=== PATIENT | female | born 1985 | race Two or more races ===

== ENCOUNTER 2024-07-01 11:22 | Outpatient (RCR) | payer MEDICAID, SELFPAY ==
--- NOTE | 2024-06-25 13:35 | CTCFLWUP_ITS ---
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 S/p pembrolizumab plus chemoradiation with cisplatin as chemosensitization agent (12/10/2023 - ) S/p brachytherapy at [facility] (01/15/2024 - 01/17/2024) Started on adjuvant pembrolizumab every 6 weeks on 02/21/2024. Plan is to give her a total of 15 new tments. Type 2 diabetes for last 9 years without any secondary sequelae. REASON FOR TODAY?S VISIT patient has been on pembrolizumab in the adjuvant setting and here to discus s mri results here HISTORY OF PRESENT ILLNESS: Bernabe Hirsch is a 38-year-old SPA speaking female with follow ing oncology history. Ms. Hirsch has been having vaginal bleeding intermittently for the last 6 months. She was also cooper ving vaginal discharge. For the last 1 months she has been having low pelvic pain. 08/15/2023: Ms. Hirsch had a Pap smear 10/02/2023: Ms. Hirsch had biopsy of the cervix mass 11/14/2023: MRI of the pelvis with IV contrast? 11/19/2023: PET/CT scan 12/10/2023 - 01/14/2024) /p pembrolizumab plus cisplatin chemoradiation 01/15/2024?01/17/2024: Ms. Hirsch had brachytherapy at [facility]. 02/21/2024: Ms. Hirsch received first dose of adjuvant pembrolizumab 400 mg IV. The plan is to giv e her once every 6 weeks for a total of 15 times. PAST MEDICAL HISTORY: Cervical cancer - dx 10/02/23 Diabetes Hyperlipidemia PAST SURGICAL HISTORY: x 3 - 2014, 2017, 2020 Cervical cerclage - 2014, 2020 MEDICATIONS: 1. atorvastatin - 20 mg 1 tab Daily 2. ibuprofen - 800 mg 1 tab Every 8 Hours 3. levoFLOXacin - 500 mg 1 tab one tab po q daily for 7 days 4. metFORMIN - 1,000 mg 1 tab Twice a Day 5. Mounjaro - 5 mg/0.5 mL 5 mg Weekly?Palabra Meds? Medications Last Reconciled by Joy Morton RN on 03/06/2024 ALLERGIES: No Known Drug Allergies REVIEW OF SYSTEMS:?Clone ROS? Neurological: No headache, seizures or blurring of vision. Gastrointestinal: No nausea, vomiting, diarrhea or constipation. Cardiovascular: No palpitations or angina pains. Respiratory: No cough, chest pain or shortness of breath. PHYSICAL EXAMINATION:?ClonePE? VITAL SIGNS: Temperature?99.7, B/P?135/84, Oxygen?Saturation?100% Weight?188?lbs (Change?since? 4:?3?lbs) PAIN: 0 - No pain EYE: Conjunctivae is pink. MOUTH: Oral cavity is dry. CHEST: Clear to auscultation. No wheezes or rales audible. CARDIAC: Rhythm regular, no murmurs or gallops present. ABDOMEN: Soft. No hepatomegaly. No splenomegaly. EXTREMITIES: No pedal edema or cyanosis. ASSESSMENT and plan: #1 stage III C2 (para-aortic lymph node metastasis on PET/CT scan) adenosquamous carcinoma of the cer vix. S/p chemoradiation plus pembrolizumab followed by brachytherapy at [facility] as documented above Continue adjuvant pembrolizumab 400 mg IV every 6 weeks for a total of 15 times as per keynote A [address] scan is concerning for left iliac lymph nodes MRI pelvis negative for any LN s Continue Pembro Patient asymptomatic #2 type 2 diabetes for last 9 years without any secondary sequelae. Follow-up with PCP Electronically Signed by: Joey Ramirez MD T: 1:33 PM CC: PCP: Aure Barrett V Referring: Aure Barrett V This document was completed utilizing speech recognition software. Grammatical errors, random word in sertions, pronoun errors, and incomplete sentences are an occasional consequence of this system due t o software limitations, ambient noise, and hardware issues. Any formal questions or concerns about e content, text or information contained within the body of this dictation should be directly address ed to the provider for clarification.
[2024-06-30 10:35] LABS: Basophils % (Auto) 0 % (0-2.5); Eosinophils # (Auto) 0.1 Thou/mm3 (0.0-0.5); Eosinophils % (Auto) 1 % (0-10); Hematocrit 34.5 % (36.0-46.0); Hemoglobin 11.8 g/dL (12.0-16.0); Immature Granulocytes % (Auto) 0 % (0-0); Immature Granulocytes Auto 0.01 Thou/mm3 (0.00-0.00); Lymphocytes # (Auto) 0.8 Thou/mm3 (1.0-4.8); Lymphocytes % (Auto) 13 % (10-50); Mean Corpuscular HGB Conc 34.2 g/dl (31.0-37.0); Mean Corpuscular Hemoglobin 28.1 pg (25.0-35.0); Mean Corpuscular Volume 82 fL (80-100); Monocytes # (Auto) 0.4 Thou/mm3 (0.0-0.8); Monocytes % (Auto) 7 % (0-12); Neutrophils # (Auto) 4.8 Thou/mm3 (1.8-7.7); Neutrophils % (Auto) 78 % (37-80); Nucleated Red Blood Cell % 0 /100 WBC (0); Platelet Count 336 Thou/mm3 (140-440); RDW Standard Deviation 39.3 fL (36.4-46.3); White Blood Count 6.2 Thou/mm3 (3.6-11.0)
[2024-06-30 10:56] LABS: Alanine Aminotransferase 13 U/L (10-49); Albumin, Serum 4.2 gm/dL (3.5-5.0); Albumin/Globulin Ratio 1.6 (1.2-2.2); Alkaline Phosphatase 85 U/L (46-116); Anion Gap 10 (7-16); Aspartate Amino Transferase 13 U/L (0-34); BUN/Creatinine Ratio 20 Ratio (12-20); Bilirubin,Total 0.5 mg/dL (0.3-1.2); Blood Urea Nitrogen 12 mg/dL (9-23); Calcium 9.1 mg/dL (8.3-10.6); Calcium (Corrected) 9.1 mg/dL (8.5-10.1); Carbon Dioxide 23.5 mMol/L (20.0-31.0); Chloride 104 mMol/L (98-107); Creatinine (Component) 0.6 mg/dL (0.6-1.3); Free T4 (Free Thyroxine) 1.16 ng/dL (0.89-1.76); Globulin 2.7 gm/dL (2.3-3.5); Glucose 151 mg/dL (74-106); Osmolality,Calculated 276 (275-295); Potassium 3.5 mMol/L (3.4-5.1); Sodium 137 mMol/L (136-145); Thyroid Stimulating Hormone 0.54 uIU/mL (0.55-4.78); Total Protein 6.9 gm/dL (5.7-8.2); eGFR > 60 See Note
== END 2024-07-05 23:59 | disposition home or self-care (01) ==
LOC: SCTC 11:22
PROVIDERS: PCP Nurse Practitioner; Referring Provider Nurse Practitioner; Visit Provider Internal Medicine Hematology & Oncology
DX: Z51.11 Encounter for antineoplastic chemotherapy (principal); C53.0 Malignant neoplasm of endocervix; C77.2 Secondary and unspecified malignant neoplasm of intra-abdominal lymph nodes; E11.9 Type 2 diabetes mellitus without complications; Z79.84 Long term (current) use of oral hypoglycemic drugs; Z92.3 Personal history of irradiation
CPT/HCPCS: 36591; 80053; 84439; 84443; 85025; 96413; 99213; A4216; J1642; J9271; G0463

== ENCOUNTER 2024-08-28 14:55 | Outpatient (RCR) | payer MEDICAID, SELFPAY ==
[2024-08-11 16:16] LABS: Basophils % (Auto) 0 % (0-2.5); Eosinophils % (Auto) 1 % (0-10); Hematocrit 33.2 % (36.0-46.0); Hemoglobin 11.1 g/dL (12.0-16.0); Immature Granulocytes % (Auto) 0 % (0-0); Immature Granulocytes Auto 0.01 Thou/mm3 (0.00-0.00); Lymphocytes % (Auto) 20 % (10-50); Mean Corpuscular HGB Conc 33.4 g/dl (31.0-37.0); Mean Corpuscular Hemoglobin 27.1 pg (25.0-35.0); Mean Corpuscular Volume 81 fL (80-100); Monocytes # (Auto) 0.4 Thou/mm3 (0.0-0.8); Monocytes % (Auto) 8 % (0-12); Neutrophils # (Auto) 3.6 Thou/mm3 (1.8-7.7); Neutrophils % (Auto) 71 % (37-80); Nucleated Red Blood Cell % 0 /100 WBC (0); Platelet Count 356 Thou/mm3 (140-440); RDW Standard Deviation 35.7 fL (36.4-46.3); Red Blood Count 4.09 Miln/mm3 (4.00-5.20); White Blood Count 5.1 Thou/mm3 (3.6-11.0)
[2024-08-11 16:38] LABS: Alanine Aminotransferase 8 U/L (10-49); Albumin, Serum 4.3 gm/dL (3.5-5.0); Albumin/Globulin Ratio 1.5 (1.2-2.2); Alkaline Phosphatase 101 U/L (46-116); Anion Gap 10 (7-16); Aspartate Amino Transferase 10 U/L (0-34); BUN/Creatinine Ratio 19 Ratio (12-20); Bilirubin,Total 0.3 mg/dL (0.3-1.2); Blood Urea Nitrogen 13 mg/dL (9-23); Calcium 9.2 mg/dL (8.3-10.6); Calcium (Corrected) 9.2 mg/dL (8.5-10.1); Carbon Dioxide 24.2 mMol/L (20.0-31.0); Chloride 105 mMol/L (98-107); Creatinine (Component) 0.7 mg/dL (0.6-1.3); Free T4 (Free Thyroxine) 1.09 ng/dL (0.89-1.76); Globulin 2.9 gm/dL (2.3-3.5); Glucose 140 mg/dL (74-106); Osmolality,Calculated 279 (275-295); Potassium 3.8 mMol/L (3.4-5.1); Sodium 139 mMol/L (136-145); Thyroid Stimulating Hormone 1.11 uIU/mL (0.55-4.78); Total Protein 7.2 gm/dL (5.7-8.2); eGFR > 60 See Note
--- NOTE | 2024-09-07 19:55 | CTCFLWUP_ITS ---
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 S/p pembrolizumab plus chemoradiation with cisplatin as chemosensitization agent (12/10/2023 - 01/14/2024) S/p brachytherapy at [facility] (01/15/2024 - 01/17/2024) Started on adjuvant pembrolizumab every 6 weeks on 02/21/2024. Plan is to give her a total of 15 treatments. 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 S/p pembrolizumab plus chemoradiation with cisplatin as chemosensitization agent (12/10/2023 - 01/14/2024) S/p brachytherapy at [facility] (01/15/2024 - 01/17/2024) Started on adjuvant pembrolizumab every 6 weeks on 02/21/2024. Plan is to give her a total of 15 treatments. Type 2 diabetes for last 9 years without any secondary sequelae. DATE OF DIAGNOSIS: 08/15/2023 STAGE/TNM: Stage III TREATMENT HISTORY: Care?Plan Start?Date Cycle Day Intent PembroCis?with?chemo-xrt?for?cervic?ca 12/10/2023 1 42 Palliative 2.?Pembro?adjuvant?keynote?A18 02/21/2024 1 42 Curative?(primary) HISTORY OF PRESENT ILLNESS: Arlene Hirsch is a 38-year-old SPA speaking female with following oncology history. Ms. Hirsch has been having vaginal bleeding intermittently for the last 6 months. She was also having vaginal discharge. For the last 1 months she has been having low pelvic pain. 08/15/2023: Ms. Hirsch had a Pap smear 10/02/2023: Ms. Hirsch had biopsy of the cervix mass 11/14/2023: MRI of the pelvis with IV contrast? 11/19/2023: PET/CT scan 12/10/2023 - 01/14/2024) /p pembrolizumab plus cisplatin chemoradiation 01/15/2024?01/17/2024: Ms. Hirsch had brachytherapy at [facility]. 02/21/2024: Ms. Hirsch received first dose of adjuvant pembrolizumab 400 mg IV. The plan is to give her once every 6 weeks for a total of 15 times. 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 Tobacco?Use:?Denies ETOH?Use:?Denies Drug?Note:?Denies Social?History?Note:?Lives?with? FORGE HELPER HISTORY: Menarche?-?Age:?16 Date?LMP:?10/03/2023 Date?of?last?pap?smear:?09/2023 Hormone?Use:?NEXPLANON?X?1?1/2?YEAR :?6 Live?Births:?3 Age?1st?:?29 Painful?intercourse:?N-No Gynecological?Note:?3?miscarriages MEDICATIONS: 1. atorvastatin - 20 mg 1 tab Daily 2. ibuprofen - 800 mg 1 tab Every 8 Hours 3. Jardiance - 10 mg 1 tab Daily 4. metFORMIN - 1,000 mg 1 tab Twice a Day 5. Mounjaro - 5 mg/0.5 mL 5 mg Weekly Medications Last Reconciled by Arlene Casarez MA on 08/28/2024 ALLERGIES: No Known Drug Allergies REVIEW OF SYSTEMS: A complete 14-point review of systems was performed and is negative except as noted in interval history. PHYSICAL EXAMINATION: VITAL SIGNS: Temperature?100, B/P?132/87, Oxygen?Saturation?100% Weight?175?lbs (Change?since?08/12/24:?3.4?lbs) PAIN: 0 - No pain ECOG Performance Status: 0 - Asymptomatic and fully active GENERAL APPEARANCE: Appears well, in no apparent distress, appropriately interactive. HEENT: Normocephalic, no temporal wasting, normal conjunctiva, no scleral icterus, normal hearing, lips without lesions, neck normal range of motion. CARDIOVASCULAR: Not assessed. PULMONARY: Normal respiratory effort, no respiratory distress or use of accessory muscles, speaking in full sentences, no tachypnea. EXTREMITIES: No pedal edema or cyanosis. SKIN: Normal skin appearance. NEUROLOGIC: Alert and oriented x4. PSHYCHIATRIC: Appropriate affect, mood normal, behavior normal, intact thought and speech. LABORATORY DATA: I have personally reviewed and interpreted each of the patient?s relevant lab tests, abnormal findings are below: Date 08/11/24 ??GLUCOSE,RANDOM?(mg/dL) 140?H ??BLOOD?UREA?NITROGEN?(mg/dL) 13 ??CREATININE?(mg/dL) 0.70 ??SODIUM?(mmol/L) 139 ??POTASSIUM?(mmol/L) 3.8 ??CHLORIDE?(mmol/L) 105 ??CrCl?(CandG)?(ml/min) 111.48 ??AST/SGOT?(Unit/L) 10 ??ALT/SGPT?(Unit/L) 8?L ??ALKALINE?PHOSPHATASE?(Unit/L) 101 ??BILIRUBIN,?TOTAL?(mg/dL) 0.3 ??PROTEIN?TOTAL?(gm/dl) 7.2 ??ALBUMIN,?SERUM?(gm/dl) 4.3 ??GLOBULIN?(gm/dl) 2.9 ??ALBUMIN/GLOBULIN?RATIO 1.5 ??CALCIUM,?SERUM?(mg/dL) 9.2 ??CALCIUM?SERUM?(CORRECTED)?(mg/dL) 9.2 ASSESSMENT/PLAN: #1 stage III C2 (para-aortic lymph node metastasis on PET/CT scan) adenosquamous carcinoma of the cervix. S/p chemoradiation plus pembrolizumab followed by brachytherapy at [facility] as documented above Continue adjuvant pembrolizumab 400 mg IV every 6 weeks for a total of 15 times as per keynote A [address] scan is concerning for left iliac lymph nodes MRI pelvis negative for any LN s Continue Pembro Patient asymptomatic #2 type 2 diabetes for last 9 years without any secondary sequelae. Follow-up with PCP MRI lumbar spine with and without contrast CBC CMP Iron studies Tsh t4 RETURN TO CLINIC: 4 weeks BILLING AND COMPLIANCE: I reviewed external records from providers outside my specialty as summarized above. I spent a total of 50 minutes on this patient?s care on the day of their visit excluding time spent related to any billed procedures. This time includes time spent with the patient as well as time spent documenting in the medical record, reviewing patients records and tests, obtaining history, placing orders, communicating with other healthcare professionals, counseling the patient, family or caregiver, and/or care coordination for the diagnoses above. Electronically Signed by: Joey Ramirez MD T: 7:53 PM CC: PCP: Aure Barrett V Referring: Aure Barrett V This document was completed utilizing speech recognition software. Grammatical errors, random word insertions, pronoun errors, and incomplete sentences are an occasional consequence of this system due to software limitations, ambient noise, and hardware issues. Any formal questions or concerns about the content, text or information contained within the body of this dictation should be directly addressed to the provider for clarification.
== END 2024-09-05 23:59 | disposition home or self-care (01) ==
LOC: SCTC 14:55
PROVIDERS: PCP Nurse Practitioner; Referring Provider Nurse Practitioner; Visit Provider Internal Medicine Hematology & Oncology
DX: Z51.11 Encounter for antineoplastic chemotherapy (principal); C53.0 Malignant neoplasm of endocervix; C77.2 Secondary and unspecified malignant neoplasm of intra-abdominal lymph nodes; Z92.3 Personal history of irradiation; E11.9 Type 2 diabetes mellitus without complications; Z79.84 Long term (current) use of oral hypoglycemic drugs
CPT/HCPCS: 36591; 80053; 84439; 84443; 85025; 96413; 99212; A4216; J1642; J7050; J9271; G0463

== ENCOUNTER → 2024-09-02 | Outpatient (CLI) | payer MEDICAID, SELFPAY ==
[2024-09-01 13:49] LABS: HCG Qualitative,Urine Negative
--- NOTE | 2024-09-02 09:30 | XR_ITS ---
Examination: CT chest with intravenous contrast CT abdomen with intravenous contrast CT pelvis with intravenous contrast 2-D coronal and sagittal reconstructions Time of exam: August 25, 2024 1043 hours INDICATIONS: Diagnosis cervical carcinoma one year ago, restaging, onset left lower abdominal pain radiating to the left leg beginning 2 months ago CTDI: vol (mGy) : 20.8 DLP: (mGycm): 856 Technique: Multiple axial images of the chest, abdomen and pelvis with intravenous contrast, 3.0 mm slice thickness. Images obtained post intravenous injection Isovue 370 60 cc. 2-D sagittal and coronal reconstructions. Low dose protocols were performed. One or more of the following dose reduction techniques were used; automated exposure control, adjustment of the mA and/or KV according to patient size, use of iterative reconstruction technique. Findings: No thoracic aortic aneurysmal dilatation Pulmonary artery opacification is reduced No paratracheal tracheobronchial or bronchopulmonary adenopathy. 4 mm pulmonary nodule right upper lobe image 145 3 mm pulmonary nodule left upper lobe image 145 4 mm pulmonary nodule posterior right lung image 173 3 mm pulmonary nodule posterior right lung image 176 3 mm pulmonary nodule right lower lobe image 209 4 mm pulmonary nodule right lower lobe image 212 2 mm 4 mm pulmonary nodules left lower lobe image 222 No pneumonia or pulmonary edema No visualized liver or splenic lesion No gallstones No pancreatic or adrenal mass No renal or ureteral calculi Prominent pericaval periaortic lymphadenopathy, left lateral periaortic lymph nodes measuring up to 22 mm in dimension Small right and left common iliac lymph nodes as well as external iliac lymph nodes, the largest 18 mm right external iliac region Diffuse thickening of the rectal wall, clinical correlation advised Anteverted uterus Urinary bladder wall thickening up to 4 mm Moderate osteopenia IMPRESSION: Numerous subcentimeter pulmonary nodules suspicious for pulmonary nodular metastatic disease, suggest continued 6 month follow-up CT chest without contrast Extensive abdominal and pelvic likely metastatic lymphadenopathy Thickening of the rectal wall, consider proctitis Cystitis pattern
[2024-09-02 11:29] LABS: Basophils % (Auto) 1 % (0-2.5); Eosinophils # (Auto) 0.1 Thou/mm3 (0.0-0.5); Eosinophils % (Auto) 1 % (0-10); Hematocrit 37.9 % (36.0-46.0); Hemoglobin 12.4 g/dL (12.0-16.0); Immature Granulocytes % (Auto) 0 % (0-0); Immature Granulocytes Auto 0.01 Thou/mm3 (0.00-0.00); Lymphocytes # (Auto) 0.9 Thou/mm3 (1.0-4.8); Lymphocytes % (Auto) 16 % (10-50); Mean Corpuscular HGB Conc 32.7 g/dl (31.0-37.0); Mean Corpuscular Volume 82 fL (80-100); Monocytes # (Auto) 0.5 Thou/mm3 (0.0-0.8); Monocytes % (Auto) 8 % (0-12); Neutrophils # (Auto) 4.3 Thou/mm3 (1.8-7.7); Neutrophils % (Auto) 74 % (37-80); Nucleated Red Blood Cell % 0 /100 WBC (0); Platelet Count 413 Thou/mm3 (140-440); RDW Standard Deviation 37.7 fL (36.4-46.3); White Blood Count 5.7 Thou/mm3 (3.6-11.0)
[2024-09-02 11:56] LABS: Alanine Aminotransferase 10 U/L (10-49); Albumin/Globulin Ratio 1.9 (1.2-2.2); Alkaline Phosphatase 117 U/L (46-116); Anion Gap 12 (7-16); Aspartate Amino Transferase < 10 U/L (0-34); BUN/Creatinine Ratio 20 Ratio (12-20); Bilirubin,Total 0.5 mg/dL (0.3-1.2); Blood Urea Nitrogen 12 mg/dL (9-23); Calcium 9.7 mg/dL (8.3-10.6); Calcium (Corrected) 9.7 mg/dL (8.5-10.1); Chloride 100 mMol/L (98-107); Creatinine (Component) 0.6 mg/dL (0.6-1.3); Globulin 2.7 gm/dL (2.3-3.5); Glucose 103 mg/dL (74-106); Osmolality,Calculated 275 (275-295); Potassium 3.8 mMol/L (3.4-5.1); Sodium 138 mMol/L (136-145); Total Protein 7.7 gm/dL (5.7-8.2); eGFR > 60 See Note
[2024-09-02 12:13] LABS: Carcinoembryonic Antigen 58.2 ng/mL (0.0-5.0)
== END | disposition home or self-care (01) ==
LOC: CCTX 10:03 → SCTO 10:11 → CCTX 09-26 05:55
PROVIDERS: Student in an Organized Health Care Education/Training Program; PCP Nurse Practitioner; Referring Provider Internal Medicine Hematology & Oncology; Visit Provider Obstetrics & Gynecology Gynecologic Oncology
DX: R91.8 Other nonspecific abnormal finding of lung field (principal); C53.9 Malignant neoplasm of cervix uteri, unspecified; C53.0 Malignant neoplasm of endocervix; Z32.00 Encounter for pregnancy test, result unknown
CPT/HCPCS: 36415; 71260; 74177; 80053; 81025; 82378; 85025; 86304; A4649; Q9967

== ENCOUNTER 2024-09-29 10:40 | Emergency (ER) | payer MEDICAID, SELFPAY ==
[2024-09-29 11:03] VITALS: BP 141/92; PULSE 119; RESP 16; TEMP 37.4; O2SAT 99; BMI 30.4
--- NOTE | 2024-09-29 11:14 | EKG_ITS ---
[facility] Test Date: 2024-09-29 Pat Name: BERNABE GONZALEZ Department: Room: - Gender: Female Mat Roller: : 1985 Requested By: Jack Machado (KIRAN) Order Number: [id number] Reading MD: Jack Machado (JEWELLERY DESIGNER) Measurements Intervals [place] Rate: 125 P: 67 CO: 108 QRS: 97 QRSD: 81 T: 39 QT: 321 QTc: 463 Interpretive Statements SINUS TACHYCARDIA WITH SHORT CO INTERVAL BORDERLINE RIGHT AXIS DEVIATION [QRS AXIS > 90] ABNORMAL RHYTHM ECG Compared to ECG 06/26/2023 06:36:16 Short CO interval now present /store/S0/[id number]/ecg/[id number].pdf
--- NOTE | 2024-09-29 11:14 | XR_ITS ---
Examination: PA lateral chest 2 views Technique: Upright PA lateral chest 2 views Exam date and time: Coughing tachycardia beginning 3 days ago. Findings: Normal heart size Right internal jugular Port-A-Cath tip satisfactory position No pneumonia or pulmonary edema Impression: No pneumonia or pulmonary edema
--- NOTE | 2024-09-29 11:14 | PD.EDRME ---
Rapid Medical Screening Exam RME Arrival date/time: 09/29/24 10:40 38-year-old female presents emergency department today stating during chemotherapy today she became tachycardic they referred her to the ER for further evaluation Chief Complaint: Chest Pain Time Seen by Provider: 09/29/24 10:47 Vital signs: Vital Signs Temperature 99.4 F 09/29/24 11:03 Pulse Rate 119 H 09/29/24 11:03 Respiratory Rate 16 09/29/24 11:03 Blood Pressure 141/92 H 09/29/24 11:03 Pulse Oximetry (%) 99 09/29/24 11:03 Oxygen Delivery Method Room Air 09/29/24 11:03
--- NOTE | 2024-09-29 11:55 | PD.EDCHEST ---
ED Chest Pain RME/HPI General Chief Complaint: Chest Pain Stated Complaint: TACHYCARDIA, CHEST PRESSURE, SOB Time Seen by Provider: 09/29/24 10:47 Arrival date/time: 09/29/24 10:40 RME / HPI RME / HPI narrative: 09/29/24 10:40 38-year-old female presents emergency department today stating during chemotherapy today she became tachycardic they referred her to the ER for further evaluation This section includes all my notes and documentations, including HPI, PE, and ED course.? Neville Richter MD HPI: 38 year old female with history of stage III adenosquamous carcinoma of the cervix, s/p chemotherapy, s/p brachytherapy at [facility], diabetes presents to the ED for evaluation of palpitations and chest discomfort today. Patient states she began a new chemotherapy treatment today and ~ 1 hour into her treatment she began to have palpitations and chest discomfort. Additionally reports a dry cough beginning 3 days ago. Denies fevers, chills, congestion. No other complaints reported. ROS: All negative except as documented in HPI. Physical Exam: General:? Alert and oriented.? No acute distress when remaining still.?? Eyes:? Conjunctivae and lids clear.? ENT:? No nasal congestion.? Neck:? Supple.? Heart: Sinus tachycardia noted. Lungs:? No respiratory distress.? Good air movement.? No rhonchi, wheezing, rales.?? Abdomen:? Soft and nontender.?? Legs:? No clubbing, cyanosis, edema.? Skin:? Warm and dry.?? Neuro:? Alert and oriented X 3.?? I reviewed all diagnostic test results. My interpretation of the EKG is?Sinus tachycardia (109 bpm) with nonspecific ST-T changes. Neville Richter MD My interpretation of the chest x-ray is no pneumonia or pulmonary edema Blood tests and urine tests?unremarkable, including negative troponin/D-dimer/BNP. At this point, diagnoses include?tachycardia. Treatment here included?oral metoprolol. Significant improvement noted. Recommended more outpatient cardiac workup. Based on my best medical judgment, made decision no further evaluation or treatment indicated at this time.? Patient understands and agrees to the discharge instructions customized and printed, see below. Discharge instructions from Dr. Neelam: 1. After extensive evaluation, there is no life-threatening condition.? Such as heart attack or pulmonary embolism (blood clots in your lungs) or pneumothorax (collapsed lung). 2. Your symptoms may be due to chemotherapy. 3. Take metoprolol 25 mg every morning and every evening. Hold if SBP < 115. SBP is higher number of BP. Hold if heart rate < 65 bpm. 4. See a private doctor on 09/30/2024 for recheck and further care. To make sure there is no serious underlying heart condition, ask to help you get more tests for your heart that cannot be done here in the ER.? Such as Holter Monitor (cardiac monitoring at home from a day to even a month), heart stress test (on treadmill or with medication), echocardiogram (imaging of your heart structures), heart catherization (checking for blockages in your heart arteries), and a referral to see a Nurses' Association Counselor. 5. Seek immediate medical care with worsening or with any concerns.?? Neville Richter MD Related Data Home Medications ?Medication ?Instructions ?Recorded ?Confirmed metformin 1,000 mg tablet 1,000 mg PO BID 01/31/22 11/29/23 atorvastatin 20 mg tablet 20 mg PO QDAY 11/29/23 11/29/23 ibuprofen 800 mg tablet 800 mg PO Q8H PRN Pain 11/29/23 11/29/23 Held on 11/29/23. Instructions: Resume on 12/02/23. tirzepatide 5 mg/0.5 mL 5 mg subcut QWEEK 11/29/23 11/29/23 subcutaneous pen injector (Kary) Previous Rx's ?Medication ?Instructions ?Recorded metoprolol succinate 25 mg 25 mg PO BID #60 tabs 09/29/24 tablet,extended release 24 hr Allergies Allergy/AdvReac Type Severity Reaction Status Date / Time No Known Allergies Allergy Unknown Verified 01/25/24 12:41 Past Medical History Past Medical History CARDIAC: Positive Hypercholesterolemia REPRODUCTIVE: Positive Previous Pregnancies (x6) ENDOCRINE: Positive Endocrine Disorders, Diabetes Mellitus Type 2 and Hypothyroidism HEMATOLOGIC: Positive Anemia OTHER HISTORY: Positive Hospitalization (for infection), Chicken Pox, Cancer and Cervical Cancer Family History FAMILY HISTORY: Positive Family Cardiac Disorders and Family Cancer (sister cervical cancer) Surgical History SURGICAL: Positive Section ( x3) Social History SMOKING STATUS: Never smoker Course Quality Measures none Orders Category Date Time Status EKG (ED ONLY) *Do not use* NOW Care 09/29/24 11:14 Completed EKG (ED Only) Stat Exams 09/29/24 11:14 Draft XR chest 2V Stat Exams 09/29/24 11:14 Completed B-Type Natriuretic Peptide Stat Lab 09/29/24 11:50 Completed CBC Stat Lab 09/29/24 11:50 Completed Comprehensive Metabolic Panel Stat Lab 09/29/24 11:50 Completed D-Dimer Stat Lab 09/29/24 10:43 Completed Drug Screen,Urine Stat Lab 09/29/24 11:50 Completed HCG Qualitative,Urine Stat Lab 09/29/24 11:50 Completed Magnesium Stat Lab 09/29/24 11:50 Completed Partial Thromboplastin Time Stat Lab 09/29/24 11:50 Completed Prothrombin Time with INR Stat Lab 09/29/24 11:50 Completed Troponin I Stat Lab 09/29/24 11:50 Completed Urinalysis Stat Lab 09/29/24 11:50 Completed Metoprolol Tartrate [Lopressor] Med 09/29/24 12:24 Discontinued 25 mg PO X1 ONE Vital Signs Vital signs: Vital Signs Temperature 99.4 F 09/29/24 11:03 Pulse Rate 119 H 09/29/24 11:03 Respiratory Rate 16 09/29/24 11:03 Blood Pressure 141/92 H 09/29/24 11:03 Pulse Oximetry (%) 99 09/29/24 11:03 Oxygen Delivery Method Room Air 09/29/24 11:03 Chest Pain MDM Narrative MDM Narrative:: Elo Ramírez am scribing for and in the presence of Dr. Richter. Patient data External records reviewed:: [facility] previous records (I reviewed oncology note on 09/14/2024) Clinical information provided by:: patient Social determinants that could affect healthcare access:: none Patient has the following chronic illnesses:: stage III adenosquamous carcinoma of the cervix, s/p chemotherapy, s/p brachytherapy at [facility] How is presenting disease/condition affected by chronic disease/condition?: exacerbated by Evaluation data The following diagnostics were reviewed and interpreted by me:: EKG tracing(s) Lab and/or radiology exams considered but not ordered:: My interpretation of the EKG is: Sinus tachycardia (109 bpm) with nonspecific ST-T changes. Neville Richter MD Interpretation Summary: My interpretation of the chest x-ray is no pneumonia or pulmonary edema Medications / Prescriptions Medications or Prescriptions considered but not ordered:: None Medication administrations:: Medication Administration History Discontinued Medications Metoprolol Tartrate (Metoprolol Tartrate 25 Mg Tablet) 25 mg PO X1 ONE Stop: 09/29/24 12:25 Given Metropolol Consultations Consultation(s) initiated? (list below): No Diagnosis Chest Pain Differential Diagnosis: pneumothorax, atypical chest pain, st elevation myocardial infarction, costochondritis, chest pain and other (pulmonary embolism) Most likely diagnosis given after review of the tests above:: Tachycardia Admission Indicated Admission indicated?: not indicated Explain why admission is indicated or not indicated:: Admission criteria not met Admission Request Was there a request for admission?: No Disposition Plan Disposition Plan: Discharge Discharge Attestation Discharge Attestation: The patient and all family members were given an opportunity to ask questions and understood the discharge instructions. Discharge instructions specifically effects, indications for sooner follow up or return to the emergency department, and the expected course of current diagnosis. Patient condition: Stable Discharge Plan Plan Patient Disposition: HOME (Self Care) Prescriptions/Referrals Prescriptions/Med Rec: New metoprolol succinate 25 mg tablet extended release 24 hr 25 mg PO BID Qty: 60 0RF No Action metformin 1,000 mg Tablet 1,000 mg PO BID atorvastatin 20 mg Tablet 20 mg PO QDAY ibuprofen 800 mg Tablet 800 mg PO Q8H PRN (Reason: Pain) Mounjaro 5 mg/0.5 mL Pen Injector 5 mg SUBCUT QWEEK Referrals: Aure Barrett FNP [Primary Care Provider] - In 1 week Problem List Clinical Impression: Tachycardia Patient/Caregiver Discharge Instructions Discharge Activity: activity as tolerated Education Materials: ED About Arrhythmias Additional Instructions: Discharge instructions from Dr. Richter: 1. After extensive evaluation, there is no life-threatening condition.? Such as heart attack or pulmonary embolism (blood clots in your lungs) or pneumothorax (collapsed lung). 2. Your symptoms may be due to chemotherapy. 3. Take metoprolol 25 mg every morning and every evening. Hold if SBP < 115. SBP is higher number of BP. Hold if heart rate < 65 bpm. 4. See a private doctor on 09/30/2024 for recheck and further care. To make sure there is no serious underlying heart condition, ask to help you get more tests for your heart that cannot be done here in the ER.? Such as Holter Monitor (cardiac monitoring at home from a day to even a month), heart stress test (on treadmill or with medication), echocardiogram (imaging of your heart structures), heart catherization (checking for blockages in your heart arteries), and a referral to see a Nurses' Association Counselor. 5. Seek immediate medical care with worsening or with any concerns.?? Print Language: Citizen Of [place] Stand Alone Forms: Katelyn Award Info., Patient Portal Info Letter
[2024-09-29 12:00] LABS: Collection Type, Urine Clean Catch; WBC,Urine 0 /hpf (0-5)
[2024-09-29 12:02] LABS: Basophils % (Auto) 0 % (0-2.5); Eosinophils % (Auto) 0 % (0-10); Hematocrit 36.5 % (36.0-46.0); Hemoglobin 12.3 g/dL (12.0-16.0); Immature Granulocytes % (Auto) 1 % (0-0); Immature Granulocytes Auto 0.05 Thou/mm3 (0.00-0.00); Lymphocytes # (Auto) 0.6 Thou/mm3 (1.0-4.8); Lymphocytes % (Auto) 6 % (10-50); Mean Corpuscular HGB Conc 33.7 g/dl (31.0-37.0); Mean Corpuscular Hemoglobin 26.5 pg (25.0-35.0); Mean Corpuscular Volume 79 fL (80-100); Monocytes % (Auto) 0 % (0-12); Neutrophils % (Auto) 93 % (37-80); Nucleated Red Blood Cell % 0 /100 WBC (0); Platelet Count 416 Thou/mm3 (140-440); RDW Standard Deviation 35.6 fL (36.4-46.3); Red Blood Count 4.64 Miln/mm3 (4.00-5.20); White Blood Count 10.7 Thou/mm3 (3.6-11.0)
[2024-09-29 12:22] LABS: Partial Thromboplastin Time 25.9 Seconds (22.0-36.0); Prothrombin Time 10.7 Seconds (9.0-12.2)
[2024-09-29 12:24] LABS: B-Type Natriuretic Peptide 29 pg/mL (0-100)
[2024-09-29 12:27] LABS: Amphetamine/Methamp Scrn,U Negative (Negative); Barbiturate Screen,Urine Negative (Negative); Benzodiazepines Screen,Urine Negative (Negative); Benzoylecgonine Screen, Ur Negative (Negative); Fentanyl Screen,Urine Negative (Negative); Opiate Screen,Urine Negative (Negative); THC Screen,Urine Negative (Negative)
[2024-09-29 12:29] LABS: HCG Qualitative,Urine Negative
[2024-09-29 12:32] LABS: Alanine Aminotransferase 14 U/L (10-49); Albumin, Serum 4.7 gm/dL (3.5-5.0); Albumin/Globulin Ratio 1.6 (1.2-2.2); Alkaline Phosphatase 109 U/L (46-116); Anion Gap 10 (7-16); Aspartate Amino Transferase 10 U/L (0-34); BUN/Creatinine Ratio 19 Ratio (12-20); Bilirubin,Total 0.3 mg/dL (0.3-1.2); Blood Urea Nitrogen 13 mg/dL (9-23); Calcium 9.5 mg/dL (8.3-10.6); Calcium (Corrected) 9.5 mg/dL (8.5-10.1); Carbon Dioxide 25.1 mMol/L (20.0-31.0); Chloride 102 mMol/L (98-107); Creatinine (Component) 0.7 mg/dL (0.6-1.3); Estimated Creatinine Clearance 109.9 mL/min (>60); Glucose 308 mg/dL (74-106); Osmolality,Calculated 285 (275-295); Potassium 3.8 mMol/L (3.4-5.1); Sodium 137 mMol/L (136-145); Total Protein 7.7 gm/dL (5.7-8.2); Troponin I < 0.002 ng/mL (0.0-0.045); eGFR > 60 See Note
[2024-09-29 12:47] LABS: Bilirubin,Urine Negative (Negative); Blood,Urine Negative (Negative); Clarity,Urine Clear (Clear/Hazy); Color,Urine Colorless (Lt Yel-Yel); Glucose, Urine 4+ (Negative); Ketones,Urine Negative (Negative); Leukocyte Esterase,Urine Negative (Negative); Nitrite,Urine Negative (Negative); Protein,Urine Negative (Neg - Trace); RBC,Urine < 1 /hpf (0-3); Specific Gravity,Urine 1.011 (1.001-1.035); Squamous Epithelial Cell,Urine 1 /hpf (0-5); Urobilinogen,Urine Negative mg/dL (0.0-1.0)
[2024-09-29 13:38] LABS: D-Dimer 689 ng/mL (<600)
[2024-09-29 14:02] VITALS: BP 141/92; PULSE 119
[2024-09-29] MEDS: METOPROLOL TARTRATE 25 MG TABLET PO (14:02)
== END 2024-09-29 14:27 | disposition home or self-care (01) ==
PROVIDERS: Nurse Practitioner Primary Care; Emergency Provider Emergency Medicine; PCP Nurse Practitioner
DX: R00.0 Tachycardia, unspecified (principal); C53.9 Malignant neoplasm of cervix uteri, unspecified; R07.89 Other chest pain
CPT/HCPCS: 36415; 71046; 80053; 80307; 81001; 81025; 83735; 83880; 84484; 85025; 85379; 85610; 85730; 93005; 99283; A9270

== ENCOUNTER 2024-10-01 11:24 | Emergency (ER) | payer MEDICAID, SELFPAY ==
[2024-10-01 11:50] VITALS: BP 147/92; PULSE 78; RESP 20; TEMP 36.5; O2SAT 99
--- NOTE | 2024-10-01 11:53 | XR_ITS ---
Examination: Venous duplex lower extremity sonogram, bilateral. Date and time of exam: October 01, 2024 1250 hrs. Indications: Left lower leg pain beginning 2 months ago Technique: Multiple sonographic images of the deep venous system have been obtained. B-mode/2-D grayscale imaging of vascular structures and Doppler spectral analysis (waveforms) and color performed Both legs are examined. Findings: Deep venous systems do not demonstrate abnormal echogenicity. All visualized deep veins exhibit compressibility. All visualized deep veins exhibit augmentation. Impression: Negative for deep vein thrombosis
--- NOTE | 2024-10-01 11:55 | EDNOTE_ITS ---
ED General RME/HPI General Chief complaint: Extremity Injury, Lower Stated complaint: LEFT UPPER LEG PAIN Time Seen by Provider: 10/01/24 11:43 Arrival date/time: 10/01/24 11:24 CC: Rule out PE HPI patient has adenocarcinoma of the cervix stage II, and was about to start chemotherapy. Was seen here 2 days ago for tachycardia shortness of breath was ruled out for PE. Patient now returns today per the oncologist for recheck as the patient has had subtle intermittent swelling of the left lower extremity. Patient denies any shortness of breath difficulty breathing palpitations nausea vomiting diarrhea or leg pain. Patient is awake alert oriented with stable vital signs and not in any acute distress. Related Data Home Medications ?Medication ?Instructions ?Recorded ?Confirmed metformin 1,000 mg tablet 1,000 mg PO BID 01/31/22 atorvastatin 20 mg tablet 20 mg PO QDAY 11/29/2311/28 ibuprofen 800 mg tablet 800 mg PO Q8H PRN Pain 11/2811/29/23 Held on 11/29/23. Instructions: Resume on 12/02/23. tirzepatide 5 mg/0.5 mL 5 mg subcut QWEEK 11/29/23 0 11/29/23 subcutaneous pen injector (Kary) Previous Rx's ?Medication ?Instructions ?Recorded metoprolol succinate 25 mg 25 mg PO BID #60 tabs 09/29 tablet,extended release 24 hr Allergies Allergy/AdvReac Type Severity Reaction Status Date / Time No Known Allergies Allergy Unknown Verified 01/25/24 12:41 Review of Systems Review of Systems Narrative Review of Systems: GEN: No fever, no chills, no weight loss EYES: No discharge, no visual changes, no pain HEENT: No ear pain, no congestion, no sore throat PULM: No shortness of breath, no cough, no congestion CV: No chest pain, no dyspnea on exertion, no palpitations GI: No nausea, no vomiting, no diarrhea, no pain, no constipation : No frequency, no urgency, no dysuria MUSC/SKEL: No joint pain, no back pain SKIN: No rash PSYCH: No hallucinations, no depression HEME/LYMPH: No easy bleeding or bruising tendencies NEURO: No weakness, no headache Past Medical History Past Medical History NEUROLOGIC: Negative Neurological Disorders or Seizures CARDIAC: Positive Hypercholesterolemia; Negative Cardiac Disorders, Congestive Heart Failure or Hypertension RESPIRATORY: Negative Chronic Obstructive Pulmonary Disease (COPD) or Asthma GASTROINTESTINAL: Negative Gastrointestinal Disorders GENITOURINARY: Negative Genitourinary Disorders or Renal Disease REPRODUCTIVE: Positive Previous Pregnancies (x6) MUSCULOSKELETAL: Negative Musculoskeletal Disorders ENDOCRINE: Positive Endocrine Disorders, Diabetes Mellitus Type 2 and Hypothyroidism; Negative Diabetes Mellitus Type 1 HEMATOLOGIC: Positive Anemia; Negative Blood Disorders, Leukemia, Hemophilia, Thalassemia, Sickle Cell Disease or Clotting Problems OTHER HISTORY: Positive Hospitalization (for infection), Chicken Pox, Cancer and Cervical Cancer; Negative Autoimmune Disease, Falls, Blood Transfusions, Blood Transfusion Reaction or Anesthesia Reactions Family History FAMILY HISTORY: Positive Family Cardiac Disorders and Family Cancer (sister cervical cancer); Negative Family Psychiatric Problems, Family Respiratory Disorders, Family Gastrointestinal Problems, Family Surgery or Family Anesthesia Reaction Surgical History SURGICAL: Positive Section ( x3); Negative Cardiac Surgery, Endocrine Surgery, Abdominal Surgery or Joint Replacement Social History SMOKING STATUS: Never smoker ED Exam Narrative Physical exam: [General: Not in any acute distress Head normocephalic HEENT: Within acceptable limits Neck is supple nontender Chest equal chest rise nontender to palpation Respiratory: Clear to auscultation no wheezes crackles or rubs CV: Rate rhythm is regular no murmurs rubs or clicks Abdomen is distended secondary to body habitus soft nontender no masses positive bowel sounds all 4 quadrants Back: No CVA tenderness no spinous process tenderness from cervical spine thoracic and lumbar spine Skin: Intact no petechiae rash induration ulceration or crepitus Extremities: Moving all extremity against resistance cap refill less than 2 seconds neurosensory intact, no edema in either leg appreciated on examination. Neuro: Awake alert oriented x3 Glascow coma 15 no focal deficits] Course Quality Measures none Orders Category Date Time Status US venous doppler LE BI Stat Exams 10/01/24 11:53 Completed CBC Stat Lab 10/01/24 12:04 Completed CMP [Comprehensive Metabolic Panel] Stat Lab 10/01/24 12:04 Completed D-Dimer Stat Lab 10/01/24 12:04 Completed Acetaminophen Tab [Tylenol Tab] Med 10/01/24 13:17 Discontinued 650 mg PO X1 ONE Insulin Regular Med 10/01/24 14:42 Discontinued 5 unit SC X1 ONE Vital Signs Vital signs: Vital Signs Temperature 97.7 F 10/01/24 11:50 Pulse Rate 78 10/01/24 11:50 Respiratory Rate 20 10/01/24 11:50 Blood Pressure 147/92 H 10/01/24 11:50 Pulse Oximetry (%) 99 10/01/24 11:50 Oxygen Delivery Method Room Air 10/01/24 11:50 [facility] Patient data External records reviewed:: [facility] previous records Clinical information provided by:: patient Social determinants that could affect healthcare access:: none Patient has the following chronic illnesses:: Adenocarcinoma of the cervix stage II How is presenting disease/condition affected by chronic disease/condition?: u neffected by Evaluation data The following diagnostics were reviewed and interpreted by me:: lab results and radiology exam(s) Lab and/or radiology exams considered but not ordered:: CBC shows a mild leukocytosis of 11.1 no anemia platelets of 276. D-dimer less than 250 CMP shows no significant electrolyte imbalances other than a glucose of 319, no transaminitis or T. bili elevation. Ultrasound of the lower extremities is negative for DVT. Interpretation Summary: Patient D-dimer is negative and patient does not meet any Wells criteria. The patient's case discussed with Dr. Hanks, oncologist who agrees patient can be [facility]. Medications Medications considered but not ordered:: None Medication administrations:: Medication Administration History Discontinued Medications Acetaminophen (Acetaminophen 325 Mg Tablet) 650 mg PO X1 ONE Stop: 10/01/24 13:18 Last Admin: 10/01/24 13:40 Dose: Not Given Documented By: MAVERICK Non-Admin Reason: Patient Refused Insulin Human Regular (Insulin Hum Regular 1 Unit/0.01 Ml (Per Unit)) 5 unit SC X1 ONE Stop: 10/01/24 14:43 Last Admin: 10/01/24 14:56 Dose: 5 unit Documented By: PJ Co-signed By: TREV None Consultations Consultation(s) initiated? (list below): No Diagnosis Differential Diagnosis ED Complaint MDM: DVT PE pneumonia Most likely diagnosis given after review of the tests above:: Cancer Admission Indicated Admission indicated?: not indicated Explain why admission is indicated or not indicated:: Stable for outpatient Admission Request Was there a request for admission?: No Disposition Plan Disposition Plan: Discharge Discharge Attestation Discharge Attestation: The patient and all family members were given an opportunity to ask questions and understood the discharge instructions. Discharge instructions specifically effects, indications for sooner follow up or return to the emergency department, and the expected course of current diagnosis. Patient condition: Stable Medical Decision Making Differential Diagnosis Differential Diagnosis: DVT PE pneumonia Lab Data 10/01/24 12:04 10/01/24 12:04 Labs: Lab Results 10/01/24 Range/Units 12:04 WBC 11.1 H (3.6-11.0) Thou/mm3 RBC 4.54 (4.00-5.20) Miln/mm3 Hgb 12.1 (12.0-16.0) g/dL Hct 36.6 (36.0-46.0) % MCV 81 (80-100) fL MCH 26.7 (25.0-35.0) pg MCHC 33.1 (31.0-37.0) g/dl RDW Std Deviation 35.9 L (36.4-46.3) fL Plt Count 276 D (140-440) Thou/mm3 Neut % (Auto) 92 H (37-80) % Lymph % (Auto) 5 L (10-50) % Beaver % (Auto) 1 (0-12) % Eos % (Auto) 0 (0-10) % Baso % (Auto) 0 (0-2.5) % Neut # (Auto) 10.2 H (1.8-7.7) Thou/mm3 Lymph # (Auto) 0.6 L (1.0-4.8) Thou/mm3 Beaver # (Auto) 0.1 (0.0-0.8) Thou/mm3 Eos # (Auto) 0.0 (0.0-0.5) Thou/mm3 Baso # (Auto) 0.0 (0.0-0.2) Thou/mm3 Immature Gran # (Auto) 0.10 H (0.00-0.00) Thou/mm3 Absolute Nucleated RBC 0.00 (0.00-0.00) Thou/mm3 Immature Gran % 1 H (0-0) % Nucleated RBC % 0 (0) /100 WBC D-Dimer < 250 (<600) ng/mL Sodium 138 (136-145) mMol/L Potassium 4.6 D (3.4-5.1) mMol/L Chloride 103 (98-107) mMol/L Carbon Dioxide 24.9 (20.0-31.0) mMol/L Anion Gap 10 (7-16) BUN 14 (9-23) mg/dL Creatinine 0.6 (0.6-1.3) mg/dL Estim Creat Clear Calc Not Performed. eGFR > 60 (60 - ) See Note BUN/Creatinine Ratio 23 H (12-20) Ratio Glucose 319 H (74-106) mg/dL Calculated Osmolality 288 (275-295) Calcium 9.2 (8.3-10.6) mg/dL Corrected Calcium 9.2 (8.5-10.1) mg/dL Total Bilirubin 0.3 (0.3-1.2) mg/dL AST 11 (0-34) U/L ALT 9 L (10-49) U/L Alkaline Phosphatase 90 (46-116) U/L Total Protein 7.1 (5.7-8.2) gm/dL Albumin 4.2 D (3.5-5.0) gm/dL Globulin 2.9 (2.3-3.5) gm/dL Albumin/Globulin Ratio 1.4 (1.2-2.2) Discharge Plan Plan Patient Disposition: HOME (Self Care) Patient condition on transfer: Stable Prescriptions/Referrals Prescriptions/Med Rec: No Action metformin 1,000 mg Tablet 1,000 mg PO BID atorvastatin 20 mg Tablet 20 mg PO QDAY ibuprofen 800 mg Tablet 800 mg PO Q8H PRN (Reason: Pain) Mounjaro 5 mg/0.5 mL Pen Injector 5 mg SUBCUT QWEEK metoprolol succinate 25 mg tablet extended release 24 hr 25 mg PO BID Qty: 60 0RF Referrals: Aure Barrett FNP [Primary Care Provider] - In 1 week Problem List Clinical Impression: Shortness of breath Patient/Caregiver Discharge Instructions Education Materials: Cancer Cervix Dc Print Language: Khmer Stand Alone Forms: Katelyn Award Info., Patient Portal Info Letter PA/PHARMACY TECHNICIAN PROGRAM DIRECTOR Supervising Physician PA/DAKSHA Supervising Physician: Dustin Nieto ENP
[2024-10-01 12:37] LABS: Basophils % (Auto) 0 % (0-2.5); Eosinophils % (Auto) 0 % (0-10); Hematocrit 36.6 % (36.0-46.0); Hemoglobin 12.1 g/dL (12.0-16.0); Immature Granulocytes % (Auto) 1 % (0-0); Lymphocytes # (Auto) 0.6 Thou/mm3 (1.0-4.8); Lymphocytes % (Auto) 5 % (10-50); Mean Corpuscular HGB Conc 33.1 g/dl (31.0-37.0); Mean Corpuscular Hemoglobin 26.7 pg (25.0-35.0); Mean Corpuscular Volume 81 fL (80-100); Monocytes # (Auto) 0.1 Thou/mm3 (0.0-0.8); Monocytes % (Auto) 1 % (0-12); Neutrophils # (Auto) 10.2 Thou/mm3 (1.8-7.7); Neutrophils % (Auto) 92 % (37-80); Nucleated Red Blood Cell % 0 /100 WBC (0); Platelet Count 276 Thou/mm3 (140-440); RDW Standard Deviation 35.9 fL (36.4-46.3); Red Blood Count 4.54 Miln/mm3 (4.00-5.20); White Blood Count 11.1 Thou/mm3 (3.6-11.0)
[2024-10-01 12:44] VITALS: BP 142/92; PULSE 73; RESP 16; TEMP 36.9; O2SAT 100
--- NOTE | 2024-10-01 12:47 | PC.NURSE ---
PATIENT TO US AT THIS TIME
[2024-10-01 12:54] LABS: Alanine Aminotransferase 9 U/L (10-49); Albumin, Serum 4.2 gm/dL (3.5-5.0); Albumin/Globulin Ratio 1.4 (1.2-2.2); Alkaline Phosphatase 90 U/L (46-116); Anion Gap 10 (7-16); Aspartate Amino Transferase 11 U/L (0-34); BUN/Creatinine Ratio 23 Ratio (12-20); Bilirubin,Total 0.3 mg/dL (0.3-1.2); Blood Urea Nitrogen 14 mg/dL (9-23); Calcium 9.2 mg/dL (8.3-10.6); Calcium (Corrected) 9.2 mg/dL (8.5-10.1); Carbon Dioxide 24.9 mMol/L (20.0-31.0); Chloride 103 mMol/L (98-107); Creatinine (Component) 0.6 mg/dL (0.6-1.3); Globulin 2.9 gm/dL (2.3-3.5); Glucose 319 mg/dL (74-106); Osmolality,Calculated 288 (275-295); Potassium 4.6 mMol/L (3.4-5.1); Sodium 138 mMol/L (136-145); Total Protein 7.1 gm/dL (5.7-8.2); eGFR > 60 See Note
[2024-10-01 13:01] LABS: D-Dimer < 250 ng/mL (<600)
[2024-10-01 14:00] VITALS: PULSE 66; RESP 16; TEMP 36.6; O2SAT 98
[2024-10-01] MEDS: INSULIN HUM REGULAR 1 UNIT/0.01 ML (PER UNIT) 5 UNIT SC (14:56)
== END 2024-10-01 15:02 | disposition home or self-care (01) ==
PROVIDERS: Registered Nurse General Practice; Emergency Provider Emergency Medicine; PCP Nurse Practitioner
DX: R06.02 Shortness of breath (principal); M79.89 Other specified soft tissue disorders; C53.9 Malignant neoplasm of cervix uteri, unspecified
CPT/HCPCS: 36415; 80053; 85025; 85379; 93970; 96372; 99284; J1815

== ENCOUNTER 2024-10-27 07:59 | Outpatient (RCR) | payer MEDICAID, SELFPAY ==
[2024-10-06 10:40] LABS: Folate 23.18 ng/mL (>5.38); Vitamin B12 1421 pg/mL (211-911)
[2024-10-06 11:37] LABS: Ferritin 58 ng/mL (7.3-270.7); Iron 48 mcg/dL (50-170); Percent Iron Saturation 12 % (20-55); Total Iron Binding Capacity 386 mcg/dL (250-425); Unsaturated Iron Binding 338 (225-295)
[2024-10-20 10:48] LABS: Basophils % (Auto) 1 % (0-2.5); Eosinophils # (Auto) 0.1 Thou/mm3 (0.0-0.5); Eosinophils % (Auto) 2 % (0-10); Hematocrit 31.5 % (36.0-46.0); Hemoglobin 10.6 g/dL (12.0-16.0); Immature Granulocytes % (Auto) 2 % (0-0); Immature Granulocytes Auto 0.04 Thou/mm3 (0.00-0.00); Lymphocytes # (Auto) 0.7 Thou/mm3 (1.0-4.8); Lymphocytes % (Auto) 28 % (10-50); Mean Corpuscular HGB Conc 33.7 g/dl (31.0-37.0); Mean Corpuscular Hemoglobin 26.6 pg (25.0-35.0); Mean Corpuscular Volume 79 fL (80-100); Monocytes # (Auto) 0.6 Thou/mm3 (0.0-0.8); Monocytes % (Auto) 22 % (0-12); Neutrophils # (Auto) 1.2 Thou/mm3 (1.8-7.7); Neutrophils % (Auto) 46 % (37-80); Nucleated Red Blood Cell % 0 /100 WBC (0); Platelet Count 369 Thou/mm3 (140-440); RDW Standard Deviation 37.3 fL (36.4-46.3); Red Blood Count 3.99 Miln/mm3 (4.00-5.20)
[2024-10-20 11:08] LABS: White Blood Count 2.6 Thou/mm3 (3.6-11.0)
[2024-10-20 11:11] LABS: Alanine Aminotransferase 11 U/L (10-49); Albumin, Serum 3.8 gm/dL (3.5-5.0); Albumin/Globulin Ratio 1.6 (1.2-2.2); Alkaline Phosphatase 113 U/L (46-116); Anion Gap 9 (7-16); BUN/Creatinine Ratio 23 Ratio (12-20); Bilirubin,Total 0.3 mg/dL (0.3-1.2); Blood Urea Nitrogen 9 mg/dL (9-23); Calcium 8.8 mg/dL (8.3-10.6); Carbon Dioxide 27.4 mMol/L (20.0-31.0); Chloride 105 mMol/L (98-107); Creatinine (Component) 0.4 mg/dL (0.6-1.3); Globulin 2.4 gm/dL (2.3-3.5); Glucose 141 mg/dL (74-106); Osmolality,Calculated 281 (275-295); Potassium 3.8 mMol/L (3.4-5.1); Sodium 141 mMol/L (136-145); Thyroid Stimulating Hormone 0.67 uIU/mL (0.55-4.78); Total Protein 6.2 gm/dL (5.7-8.2); eGFR > 60 See Note
[2024-10-20 11:20] LABS: Aspartate Amino Transferase < 8 U/L (0-34)
[2024-10-24 11:25] LABS: Collection Type, Urine Voided
[2024-10-24 11:32] LABS: Basophils % (Auto) 0 % (0-2.5); Eosinophils % (Auto) 1 % (0-10); Hematocrit 32.6 % (36.0-46.0); Hemoglobin 10.6 g/dL (12.0-16.0); Immature Granulocytes % (Auto) 1 % (0-0); Immature Granulocytes Auto 0.06 Thou/mm3 (0.00-0.00); Lymphocytes # (Auto) 0.8 Thou/mm3 (1.0-4.8); Lymphocytes % (Auto) 14 % (10-50); Mean Corpuscular HGB Conc 32.5 g/dl (31.0-37.0); Mean Corpuscular Volume 80 fL (80-100); Monocytes # (Auto) 0.6 Thou/mm3 (0.0-0.8); Monocytes % (Auto) 11 % (0-12); Neutrophils # (Auto) 3.9 Thou/mm3 (1.8-7.7); Neutrophils % (Auto) 72 % (37-80); Nucleated Red Blood Cell % 0 /100 WBC (0); Platelet Count 427 Thou/mm3 (140-440); RDW Standard Deviation 38.5 fL (36.4-46.3); Red Blood Count 4.08 Miln/mm3 (4.00-5.20); White Blood Count 5.4 Thou/mm3 (3.6-11.0)
[2024-10-24 11:37] LABS: Bilirubin,Urine Negative (Negative); Blood,Urine Negative (Negative); Glucose, Urine 3+ (Negative); Ketones,Urine Negative (Negative); Leukocyte Esterase,Urine Positive (Negative); Nitrite,Urine Negative (Negative); PH,Urine 5.5 (5.0-7.0); Protein,Urine Trace (Neg - Trace); RBC,Urine 1 /hpf (0-3); Specific Gravity,Urine 1.016 (1.001-1.035); Squamous Epithelial Cell,Urine 1 /hpf (0-5); Urobilinogen,Urine Negative mg/dL (0.0-1.0); WBC,Urine 7 /hpf (0-5)
[2024-10-24 11:43] LABS: Clarity,Urine Cloudy (Clear/Hazy); Color,Urine Lt Yellow (Lt Yel-Yel)
[2024-10-24 11:47] LABS: HCG,Qualitative Serum Negative
[2024-10-24 11:55] LABS: Magnesium 1.7 mg/dL (1.6-2.6)
[2024-10-24 12:04] LABS: Alanine Aminotransferase 11 U/L (10-49); Albumin/Globulin Ratio 1.7 (1.2-2.2); Alkaline Phosphatase 100 U/L (46-116); Anion Gap 9 (7-16); Aspartate Amino Transferase 10 U/L (0-34); BUN/Creatinine Ratio 24 Ratio (12-20); Bilirubin,Total 0.3 mg/dL (0.3-1.2); Blood Urea Nitrogen 12 mg/dL (9-23); Calcium 9.2 mg/dL (8.3-10.6); Calcium (Corrected) 9.2 mg/dL (8.5-10.1); Carbon Dioxide 27.1 mMol/L (20.0-31.0); Chloride 105 mMol/L (98-107); Creatinine (Component) 0.5 mg/dL (0.6-1.3); Globulin 2.4 gm/dL (2.3-3.5); Glucose 175 mg/dL (74-106); Osmolality,Calculated 284 (275-295); Potassium 3.6 mMol/L (3.4-5.1); Sodium 141 mMol/L (136-145); Thyroid Stimulating Hormone 1.01 uIU/mL (0.55-4.78); Total Protein 6.4 gm/dL (5.7-8.2); eGFR > 60 See Note
[2024-10-24 12:12] LABS: Carcinoembryonic Antigen 124.7 ng/mL (0.0-5.0)
--- NOTE | 2024-11-10 01:14 | CTCFLWUP_ITS ---
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 S/p pembrolizumab plus chemoradiation with cisplatin as chemosensitization agent (12/10/2023 - 01/14/2024) S/p brachytherapy at [facility] (01/15/2024 - 01/17/2024) Started on adjuvant pembrolizumab every 6 weeks on 02/21/2024. Plan is to give her a total of 15 treatments. 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 S/p pembrolizumab plus chemoradiation with cisplatin as chemosensitization agent (12/10/2023 - 01/14/2024) S/p brachytherapy at [facility] (01/15/2024 - 01/17/2024) Started on adjuvant pembrolizumab every 6 weeks on 02/21/2024. Plan is to give her a total of 15 treatments. Type 2 diabetes for last 9 years without any secondary sequelae. DATE OF DIAGNOSIS: 08/15/2023 STAGE/TNM: Stage III TREATMENT HISTORY: Care?Plan Start?Date Cycle Day Intent PembroCis?with?chemo-xrt?for?cervic?ca 12/10/2023 1 42 Palliative 2.?Pembro?adjuvant?keynote?A18 02/21/2024 1 42 Curative?(primary) Cispla?taxol?bevaciz?q?3?wks 10/06/2024 1 21 Maintenance Pembrolizumab?alone 09/30/2024 1 21 Palliative FERRlecit?she 11/04/2024 1 7 Maintenance HISTORY OF PRESENT ILLNESS: Arlene Hirsch is a 39-year-old SPA speaking female with following oncology history. Ms. Hirsch has been having vaginal bleeding intermittently for the last 6 months. She was also having vaginal discharge. For the last 1 months she has been having low pelvic pain. 08/15/2023: Ms. Hirsch had a Pap smear 10/02/2023: Ms. Hirsch had biopsy of the cervix mass 11/14/2023: MRI of the pelvis with IV contrast? 11/19/2023: PET/CT scan 12/10/2023 - 01/14/2024) /p pembrolizumab plus cisplatin chemoradiation 01/15/2024?01/17/2024: Ms. Hirsch had brachytherapy at [facility]. 02/21/2024: Ms. Hirsch received first dose of adjuvant pembrolizumab 400 mg IV. The plan is to give her once every 6 weeks for a total of 15 times. 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 Tobacco?Use:?Denies ETOH?Use:?Denies Drug?Note:?Denies Social?History?Note:?Lives?with? [employer] HISTORY: Menarche?-?Age:?16 Date?LMP:?10/03/2023 Date?of?last?pap?smear:?09/2023 Hormone?Use:?NEXPLANON?X?1?1/2?YEAR :?6 Live?Births:?3 Age?1st?:?29 Painful?intercourse:?N-No Gynecological?Note:?3?miscarriages MEDICATIONS: 1. atorvastatin - 20 mg 1 tab Daily 2. Benadryl Allergy - 50 mg 50 mg Daily 3. Compazine - 5 mg 5 mg Daily 4. dexamethasone - 4 mg 20 mg Daily 5. Estrace - 0.01 % (0.1 mg/gram) 1 gm Daily 6. hydrocodone-acetaminophen - 5-325 mg 1 tab q6 7. ibuprofen - 800 mg 1 tab Every 8 Hours 8. Jardiance - 10 mg 1 tab Daily 9. metFORMIN - 1,000 mg 1 tab Twice a Day 10. Mounjaro - 5 mg/0.5 mL 5 mg Weekly 11. ondansetron - 8 mg 8 mg Daily Medications Last Reconciled by Arlene Casarez MA on 10/22/2024 ALLERGIES: bevacizumab REVIEW OF SYSTEMS: A complete 14-point review of systems was performed and is negative except as noted in interval history. PHYSICAL EXAMINATION: VITAL SIGNS: Temperature?99, B/P?139/89, Oxygen?Saturation?100% Weight?174?lbs (Change?since?10/20/24:?0.4?lbs) PAIN: 0 - No pain ECOG Performance Status: 1 - Symptomatic; ambulatory; restricted in strenuous activity GENERAL APPEARANCE: Appears well, in no apparent distress, appropriately interactive. HEENT: Normocephalic, no temporal wasting, normal conjunctiva, no scleral icterus, normal hearing, lips without lesions, neck normal range of motion. CARDIOVASCULAR: Not assessed. PULMONARY: Normal respiratory effort, no respiratory distress or use of accessory muscles, speaking in full sentences, no tachypnea. EXTREMITIES: No pedal edema or cyanosis. SKIN: Normal skin appearance. NEUROLOGIC: Alert and oriented x4. PSHYCHIATRIC: Appropriate affect, mood normal, behavior normal, intact thought and speech. LABORATORY DATA: I have personally reviewed and interpreted each of the patient?s relevant lab tests, abnormal findings are below: Date 10/24/24 ??WHITE?BLOOD?COUNT?(Thou/mm3) 5.4 ??RED?BLOOD?COUNT?(Miln/mm3) 4.08 ??HEMOGLOBIN?(gm/dl) 10.6?L ??HEMATOCRIT?(%) 32.6?L ??PLATELET?COUNT?(Thou/mm3) 427 ??NEUTROPHILS?%,?AUTO?(%) 72 ??LYMPH?%,?AUTO?(%) 14 ??NEUTROPHILS,?AUTO?(Thou/mm3) 3.9 ??GLUCOSE,RANDOM?(mg/dL) 175?H ??BLOOD?UREA?NITROGEN?(mg/dL) 12 ??CREATININE?(mg/dL) 0.50?L ??SODIUM?(mmol/L) 141 ??POTASSIUM?(mmol/L) 3.6 ??CHLORIDE?(mmol/L) 105 ??CrCl?(CandG)?(ml/min) 155.89 ??AST/SGOT?(Unit/L) 10 ??ALT/SGPT?(Unit/L) 11 ??ALKALINE?PHOSPHATASE?(Unit/L) 100 ??BILIRUBIN,?TOTAL?(mg/dL) 0.3 ??PROTEIN?TOTAL?(gm/dl) 6.4 ??ALBUMIN,?SERUM?(gm/dl) 4.0 ??GLOBULIN?(gm/dl) 2.4 ??ALBUMIN/GLOBULIN?RATIO 1.7 ??CALCIUM,?SERUM?(mg/dL) 9.2 ??CALCIUM?SERUM?(CORRECTED)?(mg/dL) 9.2 ??MAGNESIUM?(mg/dL) 1.7 ??CEA?(O*)?(ng/ml) 124.7?H ASSESSMENT/PLAN: #1 stage III C2 (para-aortic lymph node metastasis on PET/CT scan) adenosquamous carcinoma of the cervix. S/p chemoradiation plus pembrolizumab followed by brachytherapy at [facility] as documented above Continue adjuvant pembrolizumab 400 mg IV every 6 weeks for a total of 15 times as per keynote A [address] scan is concerning for left iliac lymph nodes MRI pelvis negative for any LN s Continue Pembro Patient asymptomatic #2 type 2 diabetes for last 9 years without any secondary sequelae. Follow-up with PCP MRI lumbar spine with and without contrast is negative CT scan shows numerous subcentimeter pulmonary nodules suspicious for pulmonary nodular metastatic disease disease. Case was discussed with consumer electronic retail specialist and recommendation was to start chemotherapy CA125 is responding to treatment and is now 43 patient has been on cisplatin and Taxol and Keytruda. Patient received first dose with bevacizumab which has been held as patient had reaction on the first day Continue treatment Patient have iron deficiency and was started on iron infusion ORDERS: Order # Description [id number] Comprehensive Metabolic Panel + CBC + CA 125 + Urinalysis [id number] CBC + Comprehensive Metabolic Panel + CEA [id number] Lab Appointment [id number] Follow Up Appointment [id number] Comprehensive Metabolic Panel + CBC + CA 125 + Urinalysis [id number] CBC + Comprehensive Metabolic Panel + CEA [id number] Lab Appointment [id number] Follow Up Appointment [id number] Thyroid Stimulating Hormone + Comprehensive Metabolic Panel + CBC with Auto Diff + Thyroxine, Free [id number] Comprehensive Metabolic Panel + CBC + CA 125 + Urinalysis [id number] CBC + Comprehensive Metabolic Panel + CEA [id number] Lab Appointment [id number] Follow Up Appointment [id number] Comprehensive Metabolic Panel + CBC + CA 125 + Urinalysis [id number] CBC + Comprehensive Metabolic Panel + CEA [id number] Lab Appointment [id number] Follow Up Appointment [id number] Thyroid Stimulating Hormone + Comprehensive Metabolic Panel + CBC with Auto Diff + Thyroxine, Free [id number] Follow Up Appointment [id number] CBC + Comprehensive Metabolic Panel + CEA [id number] Lab Appointment [id number] Follow Up Appointment [id number] CBC + Comprehensive Metabolic Panel + CEA [id number] Lab Appointment [id number] Thyroid Stimulating Hormone + Comprehensive Metabolic Panel + CBC with Auto Diff + Thyroxine, Free [id number] Follow Up Appointment [id number] CBC + Comprehensive Metabolic Panel + CEA [id number] Lab Appointment [id number] Follow Up Appointment [id number] CBC + Comprehensive Metabolic Panel + CEA [id number] Lab Appointment [id number] Thyroid Stimulating Hormone + Comprehensive Metabolic Panel + CBC with Auto Diff + Thyroxine, Free [id number] Follow Up Appointment [id number] CBC + Comprehensive Metabolic Panel + CEA [id number] Lab Appointment [id number] Follow Up Appointment [id number] CBC + Comprehensive Metabolic Panel + CEA [id number] Lab Appointment [id number] Thyroid Stimulating Hormone + Comprehensive Metabolic Panel + CBC with Auto Diff + Thyroxine, Free [id number] Follow Up Appointment [id number] CBC + Comprehensive Metabolic Panel + CEA [id number] Lab Appointment [id number] Follow Up Appointment [id number] CBC + Comprehensive Metabolic Panel + CEA [id number] Lab Appointment [id number] Thyroid Stimulating Hormone + Comprehensive Metabolic Panel + CBC with Auto Diff + Thyroxine, Free [id number] Follow Up Appointment [id number] CBC + Comprehensive Metabolic Panel + CEA [id number] Lab Appointment [id number] Follow Up Appointment [id number] CBC + Comprehensive Metabolic Panel + CEA [id number] Lab Appointment [id number] Thyroid Stimulating Hormone + Comprehensive Metabolic Panel + CBC with Auto Diff + Thyroxine, Free [id number] Follow Up Appointment [id number] CBC + Comprehensive Metabolic Panel + CEA [id number] Lab Appointment [id number] Follow Up Appointment [id number] CBC + Comprehensive Metabolic Panel + CEA [id number] Lab Appointment [id number] Thyroid Stimulating Hormone + Comprehensive Metabolic Panel + CBC with Auto Diff + Thyroxine, Free [id number] Follow Up Appointment [id number] CBC + Comprehensive Metabolic Panel + CEA [id number] Lab Appointment [id number] Follow Up Appointment [id number] CBC + Comprehensive Metabolic Panel + CEA [id number] Lab Appointment [id number] Follow Up Appointment [id number] CBC + Comprehensive Metabolic Panel + CEA [id number] Lab Appointment [id number] Follow Up Appointment [id number] CBC + Comprehensive Metabolic Panel + CEA [id number] Lab Appointment [id number] Follow Up Appointment MD [id number] CBC + Comprehensive Metabolic Panel + CEA [id number] Lab Appointment [id number] Follow Up Appointment MD [id number] CBC + Comprehensive Metabolic Panel + CEA [id number] Lab Appointment [id number] Follow Up Appointment MD [id number] CBC + Comprehensive Metabolic Panel + CEA [id number] Lab Appointment [id number] Follow Up Appointment [id number] CBC + Comprehensive Metabolic Panel + CEA [id number] Lab Appointment [id number] Follow Up Appointment MD [id number] CBC + Comprehensive Metabolic Panel + CEA [id number] Lab Appointment [id number] Follow Up Appointment CT scan ordered to evaluate for response to treatment RETURN TO CLINIC: 4 weeks BILLING AND COMPLIANCE: I reviewed external records from providers outside my specialty as summarized above. I spent a total of 50 minutes on this patient?s care on the day of their visit excluding time spent related to any billed procedures. This time includes time spent with the patient as well as time spent documenting in the medical record, reviewing patients records and tests, obtaining history, placing orders, communicating with other healthcare professionals, counseling the patient, family or caregiver, and/or care coordination for the diagnoses above. Electronically Signed by: Joey Ramirez MD T: 1:12 AM CC: PCP: Aure Barrett V Referring: Aure Barrett V This document was completed utilizing speech recognition software. Grammatical errors, random word insertions, pronoun errors, and incomplete sentences are an occasional consequence of this system due to software limitations, ambient noise, and hardware issues. Any formal questions or concerns about the content, text or information contained within the body of this dictation should be directly addressed to the provider for clarification.
== END 2024-11-03 23:59 | disposition home or self-care (01) ==
LOC: SCTC 07:59
PROVIDERS: PCP Nurse Practitioner; Referring Provider Nurse Practitioner; Visit Provider Internal Medicine Hematology & Oncology
DX: Z51.11 Encounter for antineoplastic chemotherapy (principal); C53.0 Malignant neoplasm of endocervix; E11.9 Type 2 diabetes mellitus without complications; R91.8 Other nonspecific abnormal finding of lung field; E61.1 Iron deficiency
CPT/HCPCS: 36591; 80053; 81001; 82378; 82607; 82728; 82746; 83540; 83550; 83735; 84443; 84703; 85025; 86304; 96367; 96368; 96375; 96413; 96415; 96417; 99213; A4216; J1100; J1200; J1453; J1642; J1940; J2405; J3475; J3480; J3490; J7040; J7050; J9060; J9267; J9271; Q5126; G0463

== ENCOUNTER → 2024-11-24 | Outpatient (CLI) | payer MEDICAID, SELFPAY ==
--- NOTE | 2024-11-24 14:00 | XR_ITS ---
Examination: CT abdomen with intravenous contrast CT pelvis with intravenous contrast 2-D coronal reconstructions 2-D sagittal reconstructions Date and time of exam:November 24, 2024 at 1553 hrs. Comparison: August 25, 2024 Indications: Diagnosis malignant neoplasm cervix restaging. CTDI: vol (mGy) 22.3 DLP: (mGycm) 715 Technique: Multiple axial sections of the abdomen and pelvis have been obtained. 64 slice high-resolution scanner used. 3 mm axial sections have been obtained, post intravenous injection 60 cc [id number] 2-D sagittal, coronal reconstructions obtained. Low dose protocols were performed. One or more of the following dose reduction techniques were used; automated exposure control, adjustment of the mA and/or KV according to patient size, use of iterative reconstruction technique. Findings: No focal liver or splenic lesions No gallstones No pancreatic or adrenal mass No hydronephrosis or ureteral calculi marked decrease in extent of abdominal lymphadenopathy as well as common iliac and external iliac lymphadenopathy Anteverted uterus Mild thickening urinary bladder wall Prominent osteopenia Impression: Significant decrease in extent of abdominal and pelvic lymphadenopathy
[2024-11-24 14:41] LABS: HCG Qualitative,Urine Negative
== END | disposition home or self-care (01) ==
LOC: SCAT 13:24
PROVIDERS: PCP Nurse Practitioner; Referring Provider Obstetrics & Gynecology Gynecologic Oncology; Visit Provider Obstetrics & Gynecology Gynecologic Oncology
DX: R59.0 Localized enlarged lymph nodes (principal); C53.9 Malignant neoplasm of cervix uteri, unspecified; C78.00 Secondary malignant neoplasm of unspecified lung
CPT/HCPCS: 74177; 81025; A4649; Q9967

== ENCOUNTER 2024-12-02 13:30 | Outpatient (RCR) | payer MEDICAID, SELFPAY ==
[2024-11-14 11:15] LABS: Basophils % (Auto) 1 % (0-2.5); Eosinophils # (Auto) 0.1 Thou/mm3 (0.0-0.5); Eosinophils % (Auto) 1 % (0-10); Hematocrit 32.8 % (36.0-46.0); Hemoglobin 10.7 g/dL (12.0-16.0); Immature Granulocytes % (Auto) 1 % (0-0); Immature Granulocytes Auto 0.06 Thou/mm3 (0.00-0.00); Lymphocytes # (Auto) 0.8 Thou/mm3 (1.0-4.8); Lymphocytes % (Auto) 17 % (10-50); Mean Corpuscular HGB Conc 32.6 g/dl (31.0-37.0); Mean Corpuscular Hemoglobin 26.4 pg (25.0-35.0); Mean Corpuscular Volume 81 fL (80-100); Monocytes # (Auto) 0.6 Thou/mm3 (0.0-0.8); Monocytes % (Auto) 13 % (0-12); Neutrophils # (Auto) 3.2 Thou/mm3 (1.8-7.7); Neutrophils % (Auto) 67 % (37-80); Nucleated Red Blood Cell % 0 /100 WBC (0); Platelet Count 305 Thou/mm3 (140-440); Red Blood Count 4.06 Miln/mm3 (4.00-5.20); White Blood Count 4.7 Thou/mm3 (3.6-11.0)
[2024-11-14 11:30] LABS: HCG,Qualitative Serum Negative
[2024-11-14 11:36] LABS: Magnesium 1.6 mg/dL (1.6-2.6)
[2024-11-14 11:39] LABS: Alanine Aminotransferase 11 U/L (10-49); Albumin, Serum 3.8 gm/dL (3.5-5.0); Albumin/Globulin Ratio 1.7 (1.2-2.2); Alkaline Phosphatase 92 U/L (46-116); Anion Gap 10 (7-16); Aspartate Amino Transferase 11 U/L (0-34); BUN/Creatinine Ratio 25 Ratio (12-20); Bilirubin,Total 0.4 mg/dL (0.3-1.2); Blood Urea Nitrogen 15 mg/dL (9-23); Calcium 8.9 mg/dL (8.3-10.6); Calcium (Corrected) 9.1 mg/dL (8.5-10.1); Carbon Dioxide 25.4 mMol/L (20.0-31.0); Chloride 108 mMol/L (98-107); Creatinine (Component) 0.6 mg/dL (0.6-1.3); Globulin 2.2 gm/dL (2.3-3.5); Glucose 242 mg/dL (74-106); Osmolality,Calculated 293 (275-295); Potassium 3.8 mMol/L (3.4-5.1); Sodium 143 mMol/L (136-145); Thyroid Stimulating Hormone 0.46 uIU/mL (0.55-4.78); eGFR > 60 See Note
[2024-11-14 11:48] LABS: Carcinoembryonic Antigen 59.4 ng/mL (0.0-5.0)
== END 2024-12-03 23:59 | disposition home or self-care (01) ==
LOC: SCTC 13:30
PROVIDERS: PCP Nurse Practitioner; Referring Provider Nurse Practitioner; Visit Provider Internal Medicine Hematology & Oncology
DX: Z51.11 Encounter for antineoplastic chemotherapy (principal); C53.0 Malignant neoplasm of endocervix; E11.9 Type 2 diabetes mellitus without complications; Z79.84 Long term (current) use of oral hypoglycemic drugs; Z79.85 Long-term (current) use of injectable non-insulin antidiabetic drugs; R91.8 Other nonspecific abnormal finding of lung field; E61.1 Iron deficiency
CPT/HCPCS: 36591; 80053; 82378; 83735; 84443; 84703; 85025; 86304; 96365; 96366; 96367; 96368; 96375; 96413; 96415; 96417; A4216; J1100; J1200; J1453; J1642; J1940; J2150; J2405; J2916; J2919; J3475; J3480; J3490; J7040; J7050; J9060; J9267; J9271

== ENCOUNTER 2024-12-31 14:54 | Outpatient (RCR) | payer MEDICAID, SELFPAY ==
[2024-12-05 10:46] LABS: Basophils % (Auto) 1 % (0-2.5); Eosinophils # (Auto) 0.1 Thou/mm3 (0.0-0.5); Eosinophils % (Auto) 1 % (0-10); Hematocrit 33.9 % (36.0-46.0); Hemoglobin 11.5 g/dL (12.0-16.0); Immature Granulocytes % (Auto) 2 % (0-0); Immature Granulocytes Auto 0.08 Thou/mm3 (0.00-0.00); Lymphocytes # (Auto) 0.7 Thou/mm3 (1.0-4.8); Lymphocytes % (Auto) 15 % (10-50); Mean Corpuscular HGB Conc 33.9 g/dl (31.0-37.0); Mean Corpuscular Hemoglobin 27.3 pg (25.0-35.0); Mean Corpuscular Volume 80 fL (80-100); Monocytes # (Auto) 0.5 Thou/mm3 (0.0-0.8); Monocytes % (Auto) 11 % (0-12); Neutrophils # (Auto) 3.4 Thou/mm3 (1.8-7.7); Neutrophils % (Auto) 71 % (37-80); Nucleated Red Blood Cell % 0 /100 WBC (0); Platelet Count 310 Thou/mm3 (140-440); RDW Standard Deviation 45.9 fL (36.4-46.3); Red Blood Count 4.22 Miln/mm3 (4.00-5.20); White Blood Count 4.7 Thou/mm3 (3.6-11.0)
[2024-12-05 11:19] LABS: Beta HCG,Quantitative 2 mIU/mL (<5.0); Magnesium 1.5 mg/dL (1.6-2.6)
[2024-12-05 11:21] LABS: Alanine Aminotransferase 10 U/L (10-49); Albumin/Globulin Ratio 1.7 (1.2-2.2); Alkaline Phosphatase 93 U/L (46-116); Anion Gap 10 (7-16); Aspartate Amino Transferase 11 U/L (0-34); BUN/Creatinine Ratio 14 Ratio (12-20); Bilirubin,Total 0.3 mg/dL (0.3-1.2); Blood Urea Nitrogen 10 mg/dL (9-23); Calcium 8.9 mg/dL (8.3-10.6); Calcium (Corrected) 8.9 mg/dL (8.5-10.1); Carbon Dioxide 26.8 mMol/L (20.0-31.0); Chloride 105 mMol/L (98-107); Creatinine (Component) 0.7 mg/dL (0.6-1.3); Globulin 2.3 gm/dL (2.3-3.5); Glucose 255 mg/dL (74-106); Osmolality,Calculated 291 (275-295); Potassium 3.8 mMol/L (3.4-5.1); Sodium 142 mMol/L (136-145); Total Protein 6.3 gm/dL (5.7-8.2); eGFR > 60 See Note
[2024-12-05 11:37] LABS: Carcinoembryonic Antigen 37.1 ng/mL (0.0-5.0)
[2024-12-30 07:43] LABS: Basophils % (Auto) 0 % (0-2.5); Eosinophils % (Auto) 0 % (0-10); Hematocrit 35.3 % (36.0-46.0); Hemoglobin 12.4 g/dL (12.0-16.0); Immature Granulocytes % (Auto) 1 % (0-0); Immature Granulocytes Auto 0.11 Thou/mm3 (0.00-0.00); Lymphocytes # (Auto) 0.8 Thou/mm3 (1.0-4.8); Lymphocytes % (Auto) 8 % (10-50); Mean Corpuscular HGB Conc 35.1 g/dl (31.0-37.0); Mean Corpuscular Hemoglobin 28.5 pg (25.0-35.0); Mean Corpuscular Volume 81 fL (80-100); Monocytes # (Auto) 0.1 Thou/mm3 (0.0-0.8); Monocytes % (Auto) 1 % (0-12); Neutrophils # (Auto) 8.7 Thou/mm3 (1.8-7.7); Neutrophils % (Auto) 90 % (37-80); Nucleated Red Blood Cell % 0 /100 WBC (0); Platelet Count 341 Thou/mm3 (140-440); RDW Standard Deviation 43.8 fL (36.4-46.3); Red Blood Count 4.35 Miln/mm3 (4.00-5.20); White Blood Count 9.7 Thou/mm3 (3.6-11.0)
[2024-12-30 08:00] LABS: HCG,Qualitative Serum Negative
[2024-12-30 08:15] LABS: Alanine Aminotransferase 10 U/L (10-49); Albumin, Serum 4.3 gm/dL (3.5-5.0); Albumin/Globulin Ratio 1.8 (1.2-2.2); Alkaline Phosphatase 101 U/L (46-116); Anion Gap 12 (7-16); Aspartate Amino Transferase 10 U/L (0-34); BUN/Creatinine Ratio 20 Ratio (12-20); Bilirubin,Total 0.3 mg/dL (0.3-1.2); Blood Urea Nitrogen 16 mg/dL (9-23); Carbon Dioxide 23.9 mMol/L (20.0-31.0); Chloride 102 mMol/L (98-107); Creatinine (Component) 0.8 mg/dL (0.6-1.3); Globulin 2.4 gm/dL (2.3-3.5); Osmolality,Calculated 299 (275-295); Potassium 3.9 mMol/L (3.4-5.1); Sodium 138 mMol/L (136-145); Thyroid Stimulating Hormone 0.33 uIU/mL (0.55-4.78); Total Protein 6.7 gm/dL (5.7-8.2); eGFR > 60 See Note
[2024-12-30 08:20] LABS: Carcinoembryonic Antigen 33.7 ng/mL (0.0-5.0)
[2024-12-30 08:22] LABS: Glucose 510 mg/dL (74-106)
[2024-12-30 09:05] LABS: Magnesium 1.6 mg/dL (1.6-2.6)
--- NOTE | 2025-01-04 22:26 | CTCFLWUP_ITS ---
Patient: BERNABE GONZALEZ : 1985 Page 6 of 6 FOLLOW UP NOTE DATE OF SERVICE: 12/31/2024 NAME: BERNABE GONZALEZ ACCOUNT: [id number] : 1985 AGE: 39 INTERVAL HISTORY: Patient is on chemoimmunotherapy for her recurrent tumor . she is requesting to add back FRANCHESKA as she does nto believe she had reaction to it. Otherwise doing well. 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 S/p pembrolizumab plus chemoradiation with cisplatin as chemosensitization agent (12/10/2023 - 01/14/2024) S/p brachytherapy at [facility] (01/15/2024 - 01/17/2024) Started on adjuvant pembrolizumab every 6 weeks on 02/21/2024. Plan is to give her a total of 15 treatments. 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 S/p pembrolizumab plus chemoradiation with cisplatin as chemosensitization agent (12/10/2023 - 01/14/2024) S/p brachytherapy at [facility] (01/15/2024 - 01/17/2024) Started on adjuvant pembrolizumab every 6 weeks on 02/21/2024. Plan is to give her a total of 15 treatments. Type 2 diabetes for last 9 years without any secondary sequelae. NOW STAGE 4 RECURRENCT CERVICAL CANCER . DATE OF DIAGNOSIS: 08/15/2023 STAGE/TNM: Stage III TREATMENT HISTORY: Care?Plan Start?Date Cycle Day Intent PembroCis?with?chemo-xrt?for?cervic?ca 12/10/2023 1 42 Palliative 2.?Pembro?adjuvant?keynote?A18 02/21/2024 1 42 Curative?(primary) Cispla?taxol?bevaciz?q?3?wks 10/06/2024 1 21 Maintenance Pembrolizumab?alone 09/30/2024 1 21 Palliative FERRlecit?she 11/04/2024 1 7 Maintenance HISTORY OF PRESENT ILLNESS: Bernabe Gonzalez is a 39-year-old SPA speaking female with following oncology history. Ms. Gonzalez has been having vaginal bleeding intermittently for the last 6 months. She was also having vaginal discharge. For the last 1 months she has been having low pelvic pain. 08/15/2023: Ms. Gonzalez had a Pap smear 10/02/2023: Ms. Gonzalez had biopsy of the cervix mass 11/14/2023: MRI of the pelvis with IV contrast? 11/19/2023: PET/CT scan 12/10/2023 - 01/14/2024) /p pembrolizumab plus cisplatin chemoradiation 01/15/2024?01/17/2024: Ms. Gonzalez had brachytherapy at [facility]. 02/21/2024: Ms. Gonzalez received first dose of adjuvant pembrolizumab 400 mg IV. The plan is to give her once every 6 weeks for a total of 15 times. 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 Tobacco?Use:?Denies ETOH?Use:?Denies Drug?Note:?Denies Social?History?Note:?Lives?with? 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 atorvastatin - 20 mg 1 tab Daily 2. Benadryl Allergy - 50 mg 50 mg Daily 3. Compazine - 5 mg 5 mg Daily 4. dexamethasone - 4 mg 20 mg Daily 5. Emend - 125 mg (1)- 80 mg (2) 1 Pack Daily 6. Estrace - 0.01 % (0.1 mg/gram) 1 gm Daily 7. hydrocodone-acetaminophen - 5-325 mg 1 tab q6 8. ibuprofen - 800 mg 1 tab Every 8 Hours 9. Jardiance - 10 mg 1 tab Daily 10. magnesium - 200 mg 4 gm Daily 11. metFORMIN - 1,000 mg 1 tab Twice a Day 12. Mounjaro - 5 mg/0.5 mL 5 mg Weekly 13. ondansetron - 8 mg 8 mg Daily Medications Last Reconciled by Bernabe Casarez MA on 12/31/2024 ALLERGIES: bevacizumab REVIEW OF SYSTEMS: A complete 14-point review of systems was performed and is negative except as noted in interval history. PHYSICAL EXAMINATION: VITAL SIGNS: Temperature?99, B/P?143/92, Oxygen?Saturation?100% Weight?185?lbs (Change?since?12/30/24:?2.6?lbs) PAIN: 0 - No pain ECOG Performance Status: 0 - Asymptomatic and fully active GENERAL APPEARANCE: Appears well, in no apparent distress, appropriately interactive. HEENT: Normocephalic, no temporal wasting, normal conjunctiva, no scleral icterus, normal hearing, lips without lesions, neck normal range of motion. CARDIOVASCULAR: Not assessed. PULMONARY: Normal respiratory effort, no respiratory distress or use of accessory muscles, speaking in full sentences, no tachypnea. EXTREMITIES: No pedal edema or cyanosis. SKIN: Normal skin appearance. NEUROLOGIC: Alert and oriented x4. PSHYCHIATRIC: Appropriate affect, mood normal, behavior normal, intact thought and speech. LABORATORY DATA: I have personally reviewed and interpreted each of the patient?s relevant lab tests, abnormal findings are below: Date 12/30/24 ??WHITE?BLOOD?COUNT?(Thou/mm3) 9.7 ?RED?BLOOD?COUNT?(Miln/mm3) 4.35 ?HEMOGLOBIN?(gm/dl) 12.4 ?HEMATOCRIT?(%) 35.3?L ?PLATELET?COUNT?(Thou/mm3) 341 ?NEUTROPHILS?%,?AUTO?(%) 90?H ?LYMPH?%,?AUTO?(%) 8?L ?NEUTROPHILS,?AUTO?(Thou/mm3) 8.7?H ?GLUCOSE,RANDOM?(mg/dL) 510?HH 465 412 ??BLOOD?UREA?NITROGEN?(mg/dL) 16 ?CREATININE?(mg/dL) 0.80 ?SODIUM?(mmol/L) 138 ?POTASSIUM?(mmol/L) 3.9 ?CHLORIDE?(mmol/L) 102 ?CrCl?(CandG)?(ml/min) 99.64 ?AST/SGOT?(Unit/L) 10 ?ALT/SGPT?(Unit/L) 10 ?ALKALINE?PHOSPHATASE?(Unit/L) 101 ?BILIRUBIN,?TOTAL?(mg/dL) 0.3 ?PROTEIN?TOTAL?(gm/dl) 6.7 ?ALBUMIN,?SERUM?(gm/dl) 4.3 ?GLOBULIN?(gm/dl) 2.4 ?ALBUMIN/GLOBULIN?RATIO 1.8 ?CALCIUM,?SERUM?(mg/dL) 9.0 ?CALCIUM?SERUM?(CORRECTED)?(mg/dL) 9.0 ? ? ASSESSMENT/PLAN: #1 stage III C2 (para-aortic lymph node metastasis on PET/CT scan) adenosquamous carcinoma of the cervix. S/p chemoradiation plus pembrolizumab followed by brachytherapy at [facility] as documented above Continue adjuvant pembrolizumab 400 mg IV every 6 weeks for a total of 15 times as per keynote A [address] scan is concerning for left iliac lymph nodes MRI pelvis negative for any LN s Continue Pembro Patient asymptomatic #2 type 2 diabetes for last 9 years without any secondary sequelae. Follow-up with PCP MRI lumbar spine with and without contrast is negative CT scan shows numerous subcentimeter pulmonary nodules suspicious for pulmonary nodular metastatic disease disease. Case was discussed with staff analyst and recommendation was to start chemotherapy with cis taxol francheska and pembro CA125 is responding to treatment and is now 43 patient has been on cisplatin and Taxol and Keytruda. Patient received first dose with bevacizumab which has been held as patient had reaction on the first day I will add back bevicuzumab Stop cisplatin after cycle 6 Continue treatment Patient have iron deficiency and was started on iron infusion ORDERS: Order # Description [id number] Comprehensive Metabolic Panel + CBC + CA 125 + Urinalysis [id number] CBC + Comprehensive Metabolic Panel + CEA [id number] Lab Appointment [id number] Follow Up Appointment [id number] + CA 125 + CEA + Comprehensive Metabolic Panel - 12 + CBC with Auto Diff [id number] Follow Up 2 Months RETURN TO CLINIC: BILLING AND COMPLIANCE: I reviewed external records from providers outside my specialty as summarized above. I spent a total of 50 minutes on this patient?s care on the day of their visit excluding time spent related to any billed procedures. This time includes time spent with the patient as well as time spent documenting in the medical record, reviewing patients records and tests, obtaining history, placing orders, communicating with other healthcare professionals, counseling the patient, family or caregiver, and/or care coordination for the diagnoses above. Electronically Signed by: {Object.Sanct_ID*PnP.NameFL@M}, {Object.Sanct_ID*PnP.Suffix@U} D: {Object.Sanct_Date} T: {Object.Sanct_Time} CC: PCP: Jonel Gilliland Referring: Jonel Gilliland This document was completed utilizing speech recognition software. Grammatical errors, random word insertions, pronoun errors, and incomplete sentences are an occasional consequence of this system due to software limitations, ambient noise, and hardware issues. Any formal questions or concerns about the content, text or information contained within the body of this dictation should be directly addressed to the provider for clarification.
== END 2025-01-03 23:59 | disposition home or self-care (01) ==
LOC: SCTC 14:54
PROVIDERS: PCP Family Medicine; Referring Provider Family Medicine; Visit Provider Internal Medicine Hematology & Oncology
DX: Z51.11 Encounter for antineoplastic chemotherapy (principal); C53.0 Malignant neoplasm of endocervix; E11.9 Type 2 diabetes mellitus without complications; R91.8 Other nonspecific abnormal finding of lung field; E61.1 Iron deficiency; Z92.3 Personal history of irradiation
CPT/HCPCS: 36591; 80053; 82378; 83735; 84439; 84443; 84702; 84703; 85025; 86304; 96361; 96365; 96366; 96367; 96368; 96375; 96413; 96415; 96417; 99213; A4216; J1100; J1200; J1453; J1642; J1938; J2150; J2405; J2916; J3475; J3480; J3490; J7030; J7040; J7050; J9060; J9267; J9271; G0463; J1940

== ENCOUNTER 2025-01-30 09:53 | Outpatient (RCR) | payer MEDICAID, SELFPAY ==
[2025-01-06 11:07] LABS: Collection Type, Urine Voided
[2025-01-06 11:10] LABS: Basophils % (Auto) 1 % (0-2.5); Eosinophils # (Auto) 0.1 Thou/mm3 (0.0-0.5); Eosinophils % (Auto) 1 % (0-10); Hemoglobin 13.2 g/dL (12.0-16.0); Immature Granulocytes % (Auto) 1 % (0-0); Immature Granulocytes Auto 0.07 Thou/mm3 (0.00-0.00); Lymphocytes % (Auto) 12 % (10-50); Mean Corpuscular HGB Conc 35.7 g/dl (31.0-37.0); Mean Corpuscular Hemoglobin 28.6 pg (25.0-35.0); Mean Corpuscular Volume 80 fL (80-100); Monocytes # (Auto) 0.9 Thou/mm3 (0.0-0.8); Monocytes % (Auto) 10 % (0-12); Neutrophils # (Auto) 6.5 Thou/mm3 (1.8-7.7); Neutrophils % (Auto) 76 % (37-80); Nucleated Red Blood Cell % 0 /100 WBC (0); Platelet Count 328 Thou/mm3 (140-440); RDW Standard Deviation 43.7 fL (36.4-46.3); Red Blood Count 4.61 Miln/mm3 (4.00-5.20); White Blood Count 8.5 Thou/mm3 (3.6-11.0)
[2025-01-06 11:22] LABS: HCG,Qualitative Serum Negative
[2025-01-06 11:24] LABS: Bacteria,Urine Rare; Bilirubin,Urine Negative (Negative); Blood,Urine Negative (Negative); Clarity,Urine Clear (Clear/Hazy); Color,Urine Lt-Yellow (Lt Yel-Yel); Glucose, Urine 4+ (Negative); Ketones,Urine 2+ (Negative); Leukocyte Esterase,Urine Positive (Negative); Nitrite,Urine Negative (Negative); Protein,Urine Negative (Neg - Trace); RBC,Urine 7 /hpf (0-3); Specific Gravity,Urine 1.033 (1.001-1.035); Squamous Epithelial Cell,Urine 5 /hpf (0-5); Urobilinogen,Urine Negative mg/dL (0.0-1.0); WBC,Urine 57 /hpf (0-5)
[2025-01-06 11:28] LABS: Magnesium 1.6 mg/dL (1.6-2.6)
[2025-01-06 11:29] LABS: Alanine Aminotransferase 10 U/L (10-49); Albumin, Serum 4.5 gm/dL (3.5-5.0); Alkaline Phosphatase 85 U/L (46-116); Anion Gap 14 (7-16); Aspartate Amino Transferase 13 U/L (0-34); BUN/Creatinine Ratio 25 Ratio (12-20); Bilirubin,Total 0.4 mg/dL (0.3-1.2); Blood Urea Nitrogen 15 mg/dL (9-23); Carbon Dioxide 23.1 mMol/L (20.0-31.0); Chloride 103 mMol/L (98-107); Creatinine (Component) 0.6 mg/dL (0.6-1.3); Globulin 2.2 gm/dL (2.3-3.5); Glucose 145 mg/dL (74-106); Osmolality,Calculated 283 (275-295); Potassium 3.7 mMol/L (3.4-5.1); Sodium 140 mMol/L (136-145); Total Protein 6.7 gm/dL (5.7-8.2); eGFR > 60 See Note
[2025-01-06 12:30] LABS: Free T4 (Free Thyroxine) 1.53 ng/dL (0.89-1.76)
[2025-01-30 10:22] LABS: Collection Type, Urine Voided
[2025-01-30 10:25] LABS: Basophils % (Auto) 1 % (0-2.5); Eosinophils % (Auto) 1 % (0-10); Hematocrit 34.2 % (36.0-46.0); Hemoglobin 11.9 g/dL (12.0-16.0); Immature Granulocytes % (Auto) 1 % (0-0); Immature Granulocytes Auto 0.02 Thou/mm3 (0.00-0.00); Lymphocytes # (Auto) 0.8 Thou/mm3 (1.0-4.8); Lymphocytes % (Auto) 18 % (10-50); Mean Corpuscular HGB Conc 34.8 g/dl (31.0-37.0); Mean Corpuscular Hemoglobin 29.4 pg (25.0-35.0); Mean Corpuscular Volume 84 fL (80-100); Monocytes # (Auto) 0.5 Thou/mm3 (0.0-0.8); Monocytes % (Auto) 11 % (0-12); Neutrophils # (Auto) 3.1 Thou/mm3 (1.8-7.7); Neutrophils % (Auto) 69 % (37-80); Nucleated Red Blood Cell % 0 /100 WBC (0); Platelet Count 293 Thou/mm3 (140-440); RDW Standard Deviation 43.7 fL (36.4-46.3); Red Blood Count 4.05 Miln/mm3 (4.00-5.20); White Blood Count 4.4 Thou/mm3 (3.6-11.0)
[2025-01-30 10:28] LABS: Bilirubin,Urine Negative (Negative); Blood,Urine Negative (Negative); Color,Urine Lt-Yellow (Lt Yel-Yel); Glucose, Urine Negative (Negative); Ketones,Urine Negative (Negative); Leukocyte Esterase,Urine Positive (Negative); Nitrite,Urine Negative (Negative); Protein,Urine Negative (Neg - Trace); RBC,Urine 2 /hpf (0-3); Specific Gravity,Urine 1.011 (1.001-1.035); Squamous Epithelial Cell,Urine 15 /hpf (0-5); Urobilinogen,Urine Negative mg/dL (0.0-1.0); WBC,Urine 48 /hpf (0-5)
[2025-01-30 10:47] LABS: HCG,Qualitative Serum Negative
[2025-01-30 10:56] LABS: Alanine Aminotransferase 10 U/L (10-49); Albumin, Serum 3.8 gm/dL (3.5-5.0); Albumin/Globulin Ratio 1.6 (1.2-2.2); Alkaline Phosphatase 85 U/L (46-116); Anion Gap 6 (7-16); Aspartate Amino Transferase 12 U/L (0-34); BUN/Creatinine Ratio 14 Ratio (12-20); Bilirubin,Total 0.3 mg/dL (0.3-1.2); Blood Urea Nitrogen 7 mg/dL (9-23); Calcium 8.7 mg/dL (8.3-10.6); Calcium (Corrected) 8.9 mg/dL (8.5-10.1); Chloride 106 mMol/L (98-107); Creatinine (Component) 0.5 mg/dL (0.6-1.3); Globulin 2.4 gm/dL (2.3-3.5); Glucose 170 mg/dL (74-106); Osmolality,Calculated 279 (275-295); Potassium 3.6 mMol/L (3.4-5.1); Sodium 139 mMol/L (136-145); Thyroid Stimulating Hormone 0.73 uIU/mL (0.55-4.78); Total Protein 6.2 gm/dL (5.7-8.2); eGFR > 60 See Note
[2025-01-30 11:02] LABS: Clarity,Urine Hazy (Clear/Hazy)
[2025-01-30 11:10] LABS: Carcinoembryonic Antigen 21.8 ng/mL (0.0-5.0)
== END 2025-02-02 23:59 | disposition home or self-care (01) ==
LOC: SCTC 09:53
PROVIDERS: PCP Family Medicine; Referring Provider Family Medicine; Visit Provider Internal Medicine Hematology & Oncology
DX: Z51.11 Encounter for antineoplastic chemotherapy (principal); C53.0 Malignant neoplasm of endocervix; E11.9 Type 2 diabetes mellitus without complications; R91.8 Other nonspecific abnormal finding of lung field; E61.1 Iron deficiency; Z79.84 Long term (current) use of oral hypoglycemic drugs; Z79.85 Long-term (current) use of injectable non-insulin antidiabetic drugs
CPT/HCPCS: 36591; 80053; 81001; 82378; 83735; 84439; 84443; 84703; 85025; 86304; 96367; 96368; 96375; 96413; 96415; 96417; A4216; J1100; J1200; J1453; J1642; J1938; J2150; J2405; J2916; J3475; J3480; J3490; J7040; J7050; J9060; J9267; J9271; Q5126; J1940

== ENCOUNTER 2025-02-01 17:03 | Emergency (ER) | payer MEDICAID, SELFPAY ==
[2025-02-01 18:12] VITALS: BP 164/88; PULSE 72; RESP 18; TEMP 36.9; O2SAT 100
--- NOTE | 2025-02-01 18:16 | XR_ITS ---
Examination: CT brain head without contrast. 2-D sagittal coronal reconstructions Date and time of exam:February 01, 2025 1842 hours INDICATIONS: Left-sided headaches beginning 2 weeks ago, diagnosis cervical cancer CTDI: vol (mGy):49.6 DLP: (mGycm):938 Technique: Multiple CT axial sections of the brain have been obtained, 5 mm slice thickness. Contrast has not been administered. 2-D sagittal, coronal reconstructions have been obtained Low dose protocols were performed. One or more of the following dose reduction techniques were used; automated exposure control, adjustment of the mA and/or KV according to patient size, use of iterative reconstruction technique. Findings: Large soft tissue mass centered at the left occipital bone and left posterior foramen magnum, axial image 36, measuring at least 4.1 x 3.8 x 2.3 cm This mass is destroying the left occipital bone the anterior left foramen magnum the left lateral foramen magnum and its extending cephalad into the posterior fossa, coronal image 35 The ventricles are not enlarged No midline shift is noted, fourth ventricle is midline No acute hemorrhage either intra or extra-axial IMPRESSION: Large soft tissue tumor mass, presumably metastatic soft tissue mass centered at the left occipital bone left posterior and lateral foramen magnum, destroying a major portion of the left occipital bone and left lateral and anterior foramen magnum and extending intracranial into the posterior fossa on the left side Recommend MRI brain and head neck follow-up pre and postcontrast
--- NOTE | 2025-02-01 18:16 | PD.EDRME ---
Rapid Medical Screening Exam RME Arrival date/time: 02/01/25 17:03 Chief Complaint: Headache Time Seen by Provider: 02/01/25 18:07 Vital signs: Vital Signs Temperature 98.5 F 02/01/25 18:12 Pulse Rate 72 02/01/25 18:12 Respiratory Rate 18 02/01/25 18:12 Blood Pressure 164/88 H 02/01/25 18:12 Pulse Oximetry (%) 100 02/01/25 18:12 Oxygen Delivery Method Room Air 02/01/25 18:12 E Narrative: MARDIGAL x1 week. Currently on chemo for cervial CA. Denies n/v or dizziness.
[2025-02-01 18:31] LABS: Basophils % (Auto) 1 % (0-2.5); Eosinophils % (Auto) 1 % (0-10); Hematocrit 36.2 % (36.0-46.0); Hemoglobin 12.9 g/dL (12.0-16.0); Immature Granulocytes % (Auto) 0 % (0-0); Immature Granulocytes Auto 0.03 Thou/mm3 (0.00-0.00); Lymphocytes # (Auto) 1.2 Thou/mm3 (1.0-4.8); Lymphocytes % (Auto) 16 % (10-50); Mean Corpuscular HGB Conc 35.6 g/dl (31.0-37.0); Mean Corpuscular Hemoglobin 29.7 pg (25.0-35.0); Mean Corpuscular Volume 83 fL (80-100); Monocytes # (Auto) 0.6 Thou/mm3 (0.0-0.8); Monocytes % (Auto) 9 % (0-12); Neutrophils # (Auto) 5.2 Thou/mm3 (1.8-7.7); Neutrophils % (Auto) 73 % (37-80); Nucleated Red Blood Cell % 0 /100 WBC (0); Platelet Count 316 Thou/mm3 (140-440); Red Blood Count 4.35 Miln/mm3 (4.00-5.20); White Blood Count 7.2 Thou/mm3 (3.6-11.0)
[2025-02-01 18:49] LABS: Alanine Aminotransferase 9 U/L (10-49); Albumin, Serum 4.5 gm/dL (3.5-5.0); Alkaline Phosphatase 95 U/L (46-116); Anion Gap 10 (7-16); Aspartate Amino Transferase 14 U/L (0-34); BUN/Creatinine Ratio 13 Ratio (12-20); Bilirubin,Total 0.4 mg/dL (0.3-1.2); Blood Urea Nitrogen 9 mg/dL (9-23); Calcium 9.9 mg/dL (8.3-10.6); Calcium (Corrected) 9.9 mg/dL (8.5-10.1); Carbon Dioxide 26.8 mMol/L (20.0-31.0); Chloride 104 mMol/L (98-107); Creatinine (Component) 0.7 mg/dL (0.6-1.3); Globulin 2.3 gm/dL (2.3-3.5); Glucose 133 mg/dL (74-106); Osmolality,Calculated 281 (275-295); Potassium 3.9 mMol/L (3.4-5.1); Sodium 141 mMol/L (136-145); Total Protein 6.8 gm/dL (5.7-8.2); eGFR > 60 See Note
[2025-02-01] MEDS: HYDROcodone/APAP 7.5/325 TABLET 1 TAB PO (20:53)
[2025-02-01 20:58] VITALS: BP 148/90; PULSE 88; RESP 15; TEMP 36.7; O2SAT 100
[2025-02-01 21:58] VITALS: BMI 31.5
[2025-02-01 22:00] VITALS: BP 175/96; PULSE 78; RESP 20; TEMP 36.9; O2SAT 100
--- NOTE | 2025-02-01 22:27 | PD.EDHA ---
ED Headache RME/HPI General Chief Complaint: Headache Stated Complaint: LEFT SIDE HEAD PAIN X 2 DAYS, ON CHEMO FOR LUNG CA Time Seen by Provider: 02/01/25 18:07 Arrival date/time: 02/01/25 17:03 RME / HPI RME / HPI Narrative: MADRIGAL x1 week. Currently on chemo for cervial CA. Denies n/v or dizziness. ------ Dr. Vang?s Main ED Evaluation: 39yo female with a history of cervical CA on chemotherapy presents to the ED for a chief complaint of a headache. Patient states she's had an intermittent posterior headache for the last 2 weeks. No radiation or migration. Patient denies any neck pain, numbness, tingling, difficulty ambulating, N/V or any other associated symptoms. Oncologist is Dr. Ramirez. Patient is currently on chemotherapy, tomorrow is her last chemotherapy dose. In the past has received radiation for her cervical cancer. Was told that her cervical cancer lesions had improved. Has known mets to the lungs. No known mets to the brain or anywhere else. Patient denies any weakness chills chest pain abdominal pain dysuria slurring of speech seizure activity falls or trauma. Related Data Home Medications ?Medication ?Instructions ?Recorded ?Confirmed metformin 1,000 mg tablet 1,000 mg PO BID 01/31/22 11/29/23 atorvastatin 20 mg tablet 20 mg PO QDAY 11/29/23 11/29/23 ibuprofen 800 mg tablet 800 mg PO Q8H PRN Pain 11/29/23 11/29/23 Held on 11/29/23. Instructions: Resume on 12/02/23. tirzepatide 5 mg/0.5 mL 5 mg subcut QWEEK 11/29/23 11/29/23 subcutaneous pen injector (Júniorunwillaro) Previous Rx's ?Medication ?Instructions ?Recorded metoprolol succinate 25 mg 25 mg PO BID #60 tabs 09/29/24 tablet,extended release 24 hr Allergies Allergy/AdvReac Type Severity Reaction Status Date / Time bevacizumab Allergy Palpitation Verified 02/01/25 17:07 s Review of Systems Review of Systems Systems Reviewed: All systems reviewed, normal except as documented ED Exam Narrative Physical exam: GEN. APPEARANCE: The patient is alert awake oriented X-3 in no distress, lying down comfortably, does not look ill/toxic. Patient has good eye contact. Patient is cooperative. VITALS: All vitals were reviewed and the pulse ox is 100% on room air which is normal according to my interpretation. HEENT: Normocephalic, atraumatic. Pupils are equal and reactive. Oral mucosa is moist. Patent Nares NECK: Supple, nontender, no thyromegaly, no meningismus, no JVD CHEST: Symmetrical, atraumatic, and with equal expansion , Nontender on palpation no deformity and no crepitus. CARDIOVASCULAR: Heart regular rhythm no murmur or gallop rub or extra beats. LUNGS: Clear to auscultation bilaterally with symmetrical chest rise. No laboring tachypnea or wheezing. No intercostal subcostal retraction. No rales and no rhonchi. ABDOMEN: Soft, flat, nontender to palpation, no guarding or rebound tenderness. There are no abnormal masses palpated. Active and normal bowel sounds. EXTREMITIES: Nontender. No edema. No cyanosis. Patient is able to move all 4 extremities well, with full ROM and good CSM. SKIN: Warm and dry, no jaundice or rashes noted. NEURO: Patient is GARCIA x 4, Cranial nerves II through XII grossly intact. There is no focal neurologic deficits noted. GCS is 15, PNS and ELECTRONIC TECHNICIAN appear grossly intact. PSYCHIATRIC: Patient is in normal mood and affect. Course Quality Measures none Orders Category Date Time Status CT head/brain wo con Stat Exams 02/01/25 18:16 Completed CBC Stat Lab 02/01/25 18:20 Completed CMP [Comprehensive Metabolic Panel] Stat Lab 02/01/25 18:20 Completed HYDROcodone*/APAP 7.5/325 [[place] 7.5/325] Med 02/01/25 19:22 Discontinued 1 tab PO X1 ONE Morphine Inj Med 02/02/25 01:53 Discontinued 4 mg IVP NOW ONE oxyCODONE/APAP 5/325 [Percocet 5/325] Med 02/02/25 00:46 Discontinued 1 tab PO X1 ONE Vital Signs Vital signs: Vital Signs Temperature 98.5 F 02/01/25 18:12 Pulse Rate 72 02/01/25 18:12 Respiratory Rate 18 02/01/25 18:12 Blood Pressure 164/88 H 02/01/25 18:12 Pulse Oximetry (%) 100 02/01/25 18:12 Oxygen Delivery Method Room Air 02/01/25 18:12 Headache MDM Narrative MDM Narrative:: Scribe Attestation: 02/01/25 - Yuki Ramírez am scribing for and in the presence of Dr. Vang. Patient is a 39-year-old female that is in the emergency department with concerns for headache. Patient has a history of stage IV cervical cancer. She follows with oncologist Dr. Ramirez. She is currently on chemotherapy. In the past has received radiation therapy. Has known mets to the lungs. Ordered labs and CT brain. Large soft tissue tumor mass with erosion of , destroying a major portion of the left occipital bone and left lateral and anterior foramen magnum and extending intracranial into the posterior fossa on the left side. will attempt to consult patient's oncologist. given size of the tumor and findings we will also initiate transfer for neurosurgery. Patient does not have any focal neuro deficits. 2245: Attempted to call Dr. Ramirez without any success. 0023: Spoke with [facility]'s transfer center. Awaiting on a callback. 0053: Dr. Vazquez, neurosurgeon from [facility], accepts the patient for transfer. Patient data External records reviewed:: [facility] previous records (Per chart review, patient was seen here on 10/01/24 for shortness of breath. Reviewed outpatient CTC note from 01/04/25.) Clinical information provided by:: patient Social determinants that could affect healthcare access:: none Patient has the following chronic illnesses:: cervical CA, DM How is presenting disease/condition affected by chronic disease/condition?: uneffected by Evaluation data The following diagnostics were reviewed and interpreted by me:: lab results and radiology exam(s) Lab and/or radiology exams considered but not ordered:: none Interpretation Summary: CBC normal, CMP normal. ------- [facility] Report Signed Patient: BERNABE GONZALEZ. Record#: [id number] Birthdate: 1985 Age/Sex: 39 / F Location: [facility] Attending Dr: Ordering Physician: Bear Asencio PA-C Date of Service: 02/01/25 Procedure(s): CT head/brain wo con Accession Number(s): [id number] cc: Aure Barrett; Pierre Bauman MD; Bear Asencio PA-C~ Examination: CT brain head without contrast. 2-D sagittal coronal reconstructions Date and time of exam:February 01, 2025 1842 hours INDICATIONS: Left-sided headaches beginning 2 weeks ago, diagnosis cervical cancer CTDI: vol (mGy):49.6 DLP: (mGycm):938 Technique: Multiple CT axial sections of the brain have been obtained, 5 mm slice thickness. Contrast has not been administered. 2-D sagittal, coronal reconstructions have been obtained Low dose protocols were performed. One or more of the following dose reduction techniques were used; automated exposure control, adjustment of the mA and/or KV according to patient size, use of iterative reconstruction technique. Findings: Large soft tissue mass centered at the left occipital bone and left posterior foramen magnum, axial image 36, measuring at least 4.1 x 3.8 x 2.3 cm This mass is destroying the left occipital bone the anterior left foramen magnum the left lateral foramen magnum and its extending cephalad into the posterior fossa, coronal image 35 The ventricles are not enlarged No midline shift is noted, fourth ventricle is midline No acute hemorrhage either intra or extra-axial IMPRESSION: Large soft tissue tumor mass, presumably metastatic soft tissue mass centered at the left occipital bone left posterior and lateral foramen magnum, destroying a major portion of the left occipital bone and left lateral and anterior foramen magnum and extending intracranial into the posterior fossa on the left side Recommend MRI brain and head neck follow-up pre and postcontrast Dictated By: Pierre Bauman MD Signed By: <Electronically signed by Pierre Bauman MD in [place]> 02/01/25 1918 Medications / Prescriptions Medications or Prescriptions considered but not ordered:: none Medication administrations:: Medication Administration History Discontinued Medications Hydrocodone Bitart/Acetaminophen (Hydrocodone/Apap 7.5/325 Tablet) 1 tab PO X1 ONE Stop: 02/01/25 19:23 Last Admin: 02/01/25 20:53 Dose: 1 tab Documented By: Morphine Sulfate (Morphine Sulf Inj 10 Mg/Ml Vial) 4 mg IVP NOW ONE Stop: 02/02/25 01:54 Last Admin: 02/02/25 02:01 Dose: 4 mg Documented By: CB Oxycodone/Acetaminophen (Oxycodone/Apap 5/325 Tablet) 1 tab PO X1 ONE Stop: 02/02/25 00:47 Last Admin: 02/02/25 01:03 Dose: 1 tab Documented By: CB see above Consultations Consultation(s) initiated? (list below): No Diagnosis Differential diagnosis headache: migraine, tension headache and other (metastatic tumor, ICH, dehydration) Most likely diagnosis given after review of the tests above:: see clinical impression below Admission Indicated Admission indicated?: not indicated Explain why admission is indicated or not indicated:: Patient requires a higher [id number]-az-wzck. Admission Request Was there a request for admission?: No Disposition Plan Disposition Plan: Transfer Critical Care Time Critical Care Time Critical Care Time: Yes Total Critical Care Time (min.): 35 Attestation: The high probability of sudden, clinically significant deterioration in the patient?s condition required the highest level of my preparedness to intervene urgently. The services I provided to this patient were to treat and/or prevent clinically significant deterioration. Services included the following: chart data review, reviewing nursing notes and/or old charts, documentation time, mortgage consultant collaboration regarding findings and treatment options, medication orders and management, direct patient care, vital sign assessments and ordering, interpreting and reviewing diagnostic studies and lab tests. Aggregate critical care time includes only time during which I was engaged in work directly related to the patient?s care, as described above, whether at bedside or elsewhere in the Emergency Department. It did not include time spent performing other reported procedures or the services of residents, students, nurses or physician assistants. Discharge Plan Plan Patient Disposition: [facility] Facility Pt Being Transferred to: [facility] Service Needed for Transfer: Neurosurgery Discharge Disposition comment: Accepted by Dr. Vazquez Prescriptions/Referrals Prescriptions/Med Rec: No Action metformin 1,000 mg Tablet 1,000 mg PO BID atorvastatin 20 mg Tablet 20 mg PO QDAY ibuprofen 800 mg Tablet 800 mg PO Q8H PRN (Reason: Pain) Mounjaro 5 mg/0.5 mL Pen Injector 5 mg SUBCUT QWEEK metoprolol succinate 25 mg tablet extended release 24 hr 25 mg PO BID Qty: 60 0RF Referrals: Aure Barrett FNP [Primary Care Provider] - In 1 week Problem List Clinical Impression: Metastatic cancer to brain Patient/Caregiver Discharge Instructions Print Language: Malay Stand Alone Forms: Katelyn Award Info., Patient Portal Info Letter
--- NOTE | 2025-02-01 23:37 | PC.NURSE ---
[facility] CONTACTED FOR POSSIBLE TRANSFERRED- THEY STATED THEY DO HAVE NEURO ON BOARD BUT NOT ONCOLOGY. [facility]- CONTACTED AND THEY DO HAVE BOTH NEURO AND ONCOLOGY ON BOARD, IMAGING FORWARDED, PACKET FAXED VIA [employer].
[2025-02-01 23:59] VITALS: BP 160/100; PULSE 78; RESP 20; TEMP 36.8; O2SAT 100
[2025-02-02 00:42] VITALS: BP 142/98; PULSE 75; RESP 20; TEMP 36.8; O2SAT 99
--- NOTE | 2025-02-02 00:45 | PC.NURSE ---
THIS PT IS ACCEPTED TO [facility] IN [place] BY DR. KIM FROM NEURO SURGERY.THIS IS A ER:ER TRANSFER AND NUMBER FOR REPORT IS [phone]. ANANYA WAS THE FACILITY REP I SPOKE WITH FOR ACCEPTING INFORMATION.
[2025-02-02] MEDS: oxyCODONE/APAP 5/325 TABLET 1 TAB PO (01:03)
[2025-02-02] MEDS: MORPHINE SULF INJ 10 MG/ML VIAL 4 MG IVP (02:01)
[2025-02-02 02:06] VITALS: BP 165/86; PULSE 77; RESP 17; TEMP 36.8; O2SAT 99
--- NOTE | 2025-02-02 02:35 | PC.NURSE ---
CALLED [facility] TO GIVE REPORT SPOKE GUME BOWSER.
== END 2025-02-02 02:27 | disposition short-term general hospital (02) ==
PROVIDERS: Physician Assistant; Emergency Provider Emergency Medicine; PCP Nurse Practitioner
DX: C79.31 Secondary malignant neoplasm of brain (principal); C78.02 Secondary malignant neoplasm of left lung; C53.9 Malignant neoplasm of cervix uteri, unspecified; C78.01 Secondary malignant neoplasm of right lung; Z92.3 Personal history of irradiation
CPT/HCPCS: 36415; 70450; 80053; 85025; 96374; 99291; J2270; A9270

== ENCOUNTER 2025-03-03 09:06 | Outpatient (RCR) | payer MEDICAID, SELFPAY ==
--- NOTE | 2025-02-04 11:51 | CTCFLWUP_ITS ---
[facility] [address] [place], [place] [address] FOLLOW-UP NOTE Date: 02/04/2025 MR#: [id number] Name: BERNABE GONZALEZ : 1985 Dx: C53.0 Malignant neoplasm of endocervix C79.31 Secondary malignant neoplasm brain Identification. 39-year-old lady with stage III C2 adenosquamous CA of cervix. Received pembrolizumab plus chemoradiation with cis belkofski as chemo sensitizing agent between 12/10/2023 through 01/14/2024 status post brachytherapy following external beam January 15, 2024 through January 17, 2024. Patient then continued pembrolizumab under Dr. Ramirez's direction. CT chest abdomen pelvis 08/25/2024 showed numerous subcentimeter pulmonary lesions suspected to be mets as well as abdominal pelvic metastatic lymphadenopathy. Patient went to ER 02/01/2025 complaints of headaches with CT showing large soft tissue tumor centered in left occipital bone left posterior lateral foramen magnum destroying major portion of the left occipital bone and left lateral and anterior foramina. The tumor measured 4.1 x 3.8 x 2.3 cm. Patient was transferred to [facility] where MRI with and without contrast revealed similar sized 4.5 x 3.3 x 2.1 cm extending from the hospital bone region to the left lateral margin of foramen magnum. There was no hydrocephalus and there was no other areas of involvement. Patient was discharged yesterday after overnight stay and recommended to have radiation therapy ABBIE. As I see patient today patient appears stable, and has been placed on low-dose Decadron of 2 mg twice daily by Dr. Ramirez. Spoke to patient about doing SRS in 5 fractions over 2-week duration for maximum efficacy and efficiency. A#1. History of CA cervix stage III C2 adenosquamous treated with external beam brachytherapy pembrolizumab cis belkofski completed January 2024. A#2. Recurrent cervical cancer with pulmonary lesions abdominal pelvic lymphadenopathy receiving pembrolizumab since February 2024. A#3. Occipital brain mets noted on CT MRI 02/01/2025 A# 4. Will move forward with SRS planning, anticipate 5 fractions 3000 cGy over a 2-week duration. Course of treatment and side effects discussed with patient. , Cc: Kobe Knutson MD Electronically signed by: Usman Richter M.D. 02/04/2025 11:49 AM
--- NOTE | 2025-02-04 11:53 | CTCTXPLN_ITS ---
[facility] [address] [place], [place] [address] Physician Clinical Treatment Planning Note Date of Service: 02/04/2025 Name: BERNABE GONZALEZ : 1985 The patient has agreed to proceed with Radiation therapy. Tests and supporting medical records were interpreted to assist in defining the tumor location and extent of disease. Further imaging will be necessary to contour and delineate the volume to which the XRT will be provided. A. Treatment Intent: Palliative 6 MV B. Modality: C. Requested Technique: SRS D. Treatment Site: Brain E. Critical structures to be contoured on plan: F. In order to accomplish this plan, I am ordering/Prescribing the followin. Simulations (s) will be performed to accomplish a reproducible treatment position, to determine optimal treatment portals/beam arrangements, to design beam modifying devices and verify treatment portals on patient prior to the commencement of Radiation Therapy. Brain 2. Devices; for immobilization and beam shaping: Aquaplast 3. CT Guidance for placement of XRT dawson Scan area: 4. Portal images Frequency: 5. Invivo transit dose measurement once per week on all VMAT patients. 6. Special Physics Consult Requested for: SRS 7. Other requests: Special procedure chemoradiation G. Dose Objectives: Palliative. Recommend urgent radiation as this is near the brainstem and spinal cord which can cause significant morbidity or with delay. Electronically signed by: Usman Richter M.D. 02/04/2025 11:51 AM
--- NOTE | 2025-02-04 11:55 | CTCTXPLNST_ITS ---
Radiation Oncology Treatment Planning Sheet Name: BERNABE GONZALEZ MR#: [id number] : 1985 Dx: C53.0 Malignant neoplasm of endocervix Date of Service: 02/04/2025 Account #: ?? Pt Treatment Intent: curative palliative other: Stage: Procedure CPT # Ordered Spec. Procedure 86014 SRS 1 Aguilar Complex (set-up) 08661 Brain. ( occiput ? C2) 1 Aguilar Simple 10446 IMRT Plan 49300 1 MLC Devices VMAT 81272 6 Aguilar 3 D 02761 TRTMT dev Complex 54730 aquaplast 1 TRTMT dev simple 41745 Basic Min 66836 7 Special Dosimetry 94216 Spec Physics 36229 Port Films 91345 SRS Cranial/1FX 38245 SBR 5 FX or Less /ex: 5 = 5 fx 57722 3000 5 IMRT Simple 12384 IMRT Complex 77589 IGRT 92878 5 Rad del com 6-10 25827 Rad del com 11 54627 Cont Med Physics 80884 3 Treatment Planning 72672 1 Rad del com 20 mev 21261 Rad del inter 6 84832 Rad del inter 06-24 57821 Rad del simple 6-10 21343 Rad del simple 06-24 04095 Special Port Plan 83712 TRTMT dev inter 80723 Isodose Complex 94919 Isodose simple 72749 Resp Motion Mgmt Simulation 09277 Placement of Fiducial Markers 96340 Electronically Signed By: Usman Richter MD, DABR 02/04/2025 11:53 AM
--- NOTE | 2025-02-04 15:44 | CTCFLWUP_ITS ---
Patient: BERNABE HIRSCH : 1985 Page 2 of 2 FOLLOW UP NOTE DATE OF SERVICE: 02/04/2025 NAME: BERNABE HIRSCH ACCOUNT: [id number] : 1985 AGE: 39 INTERVAL HISTORY: Torrey, a patient with metastatic cervix cancer, recently diagnosed with a brain lesion presented with left-sided pain and numbness including tongue involvement. Recent chemotherapy was completed three weeks ago with hospitalization. Current treatment shows effectiveness with no lung issues on recent scan. Pain management with Tylenol and ibuprofen has been ineffective. Treatment plan includes referral to Dr. Richter for radiation therapy, prescription of hydrocodone/acetaminophen (Elm Mott), pantoprazole (Protonix), dexamethasone 2mg during radiation, . Chief Complaint Pain on the left side, numbness including on the tongue History of Present Illness Torrey presents with ongoing management of brain cancer, reporting pain on the left side and numbness, including on the tongue. These symptoms are attributed to the affected brain area. The patient's last treatment was three weeks ago, during which time they were hospitalized. The patient reports that Tylenol and ibuprofen have been ineffective in managing their pain. They have been experiencing high blood sugar levels, likely related to steroid use for chemotherapy. The patient's most recent glucose reading was 88, which is considered good. The patient's recent scan showed no lung issues, indicating that the current medication regimen is working. However, they continue to experience symptoms related to their brain cancer, necessitating consideration of radiation therapy. The patient has been referred to Dr. Richter for radiation treatment, as neurosurgeons in [place] determined that surgical removal was not an option. The patient's daily functioning has been impacted, as evidenced by their need for pain management and ongoing cancer treatments. They have been adhering to their chemotherapy regimen, though adjustments to their steroid dosage are being considered to better manage their diabetes. Medications and Supplements - Steroids - Taken for chemotherapy. - Causing high blood sugar. - Tylenol - Taken for pain. - Not effective. - Ibuprofen - Taken for pain. - Not effective. Review of Systems General: Positive for pain. HEENT: Positive for numbness on the tongue. Neurological: Positive for left-sided pain and numbness. ONCOLOGY HISTORY:?[facility] Oncology Hx? 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 S/p pembrolizumab plus chemoradiation with cisplatin as chemosensitization agent (12/10/2023 - 01/14/2024) S/p brachytherapy at [facility] (01/15/2024 - 01/17/2024) Started on adjuvant pembrolizumab every 6 weeks on 02/21/2024. Plan is to give her a total of 15 treatments. 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 S/p pembrolizumab plus chemoradiation with cisplatin as chemosensitization agent (12/10/2023 - 01/14/2024) S/p brachytherapy at [facility] (01/15/2024 - 01/17/2024) Started on adjuvant pembrolizumab every 6 weeks on 02/21/2024. Plan is to give her a total of 15 treatments. Type 2 diabetes for last 9 years without any secondary sequelae. NOW STAGE 4 RECURRENCT CERVICAL CANCER . DATE OF DIAGNOSIS: 08/15/2023 STAGE/TNM: Stage III TREATMENT HISTORY: Care?Plan Start?Date Cycle Day Intent PembroCis?with?chemo-xrt?for?cervic?ca 12/10/2023 1 42 Palliative 2.?Pembro?adjuvant?keynote?A18 02/21/2024 1 42 Curative?(primary) Cispla?taxol?bevaciz?q?3?wks 10/06/2024 1 21 Maintenance Pembrolizumab?alone 09/30/2024 1 21 Palliative FERRlecit?she 11/04/2024 1 7 Maintenance Bevacizumab?15?mg/kg?-?Met 01/07/2025 1 21 Maintenance HISTORY OF PRESENT ILLNESS: Bernabe Hirsch is a 39-year-old SPA speaking female with following oncology history. Ms. Hirsch has been having vaginal bleeding intermittently for the last 6 months. She was also having vaginal discharge. For the last 1 months she has been having low pelvic pain. 08/15/2023: Ms. Hirsch had a Pap smear 10/02/2023: Ms. Hirsch had biopsy of the cervix mass 11/14/2023: MRI of the pelvis with IV contrast? 11/19/2023: PET/CT scan 12/10/2023 - 01/14/2024) /p pembrolizumab plus cisplatin chemoradiation 01/15/2024?01/17/2024: Ms. Hirsch had brachytherapy at [facility]. 02/21/2024: Ms. Hirsch received first dose of adjuvant pembrolizumab 400 mg IV. The plan is to give her once every 6 weeks for a total of 15 times. 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 Tobacco?Use:?Denies ETOH?Use:?Denies Drug?Note:?Denies Social?History?Note:?Lives?with? DIRECTOR OF INFECTION PREVENTION HISTORY: Menarche?-?Age:?16 Date?LMP:?10/03/2023 Date?of?last?pap?smear:?09/2023 Hormone?Use:?NEXPLANON?X?1?1/2?YEAR :?6 Live?Births:?3 Age?1st?:?29 Painful?intercourse:?N-No Gynecological?Note:?3?miscarriages MEDICATIONS: 1. atorvastatin - 20 mg 1 tab Daily 2. Benadryl Allergy - 50 mg 50 mg Daily 3. Compazine - 5 mg 5 mg Daily 4. dexamethasone - 4 mg 20 mg Daily 5. dexamethasone - 2 mg 1 tab twice Daily 6. Emend - 125 mg (1)- 80 mg (2) 1 Pack Daily 7. Estrace - 0.01 % (0.1 mg/gram) 1 gm Daily 8. hydrocodone-acetaminophen - 5-325 mg 1 tab q6 9. HYDROcodone-acetaminophen - 5-300 mg 1 tab 1 tab every 8 hrs as needed for pain 10. Jardiance - 10 mg 1 tab Daily 11. metFORMIN - 1,000 mg 1 tab Twice a Day 12. Mounjaro - 5 mg/0.5 mL 5 mg Weekly 13. ondansetron - 8 mg 8 mg Daily 14. Protonix - 20 mg 1 tab Daily?Palabra Meds? Medications Last Reconciled by Bernabe Casarez MA on 02/04/2025 ALLERGIES: bevacizumab REVIEW OF SYSTEMS: A complete 14-point review of systems was performed and is negative except as noted in interval history. PHYSICAL EXAMINATION:?CloneBlock PE? VITAL SIGNS: Temperature?98, B/P?168/103, Oxygen?Saturation?100% PAIN: 6 - Severe pain ECOG Performance Status: 2 - Symptomatic; ambulatory; capable of self-care; >50% of waking hrs. not in bed GENERAL APPEARANCE: Appears well, in no apparent distress, appropriately interactive. HEENT: Normocephalic, no temporal wasting, normal conjunctiva, no scleral icterus, normal hearing, lips without lesions, neck normal range of motion. CARDIOVASCULAR: Not assessed. PULMONARY: Normal respiratory effort, no respiratory distress or use of accessory muscles, speaking in full sentences, no tachypnea. EXTREMITIES: No pedal edema or cyanosis. SKIN: Normal skin appearance. NEUROLOGIC: Alert and oriented x4. PSHYCHIATRIC: Appropriate affect, mood normal, behavior normal, intact thought and speech. LABORATORY DATA: I have personally reviewed and interpreted each of the patient?s relevant lab tests, abnormal findings are below: Date 01/30/25 02/01/25 ??WHITE?BLOOD?COUNT?(Thou/mm3) 4.4 7.2 ??RED?BLOOD?COUNT?(Miln/mm3) 4.05 4.35 ??HEMOGLOBIN?(gm/dl) 11.9?L 12.9 ??HEMATOCRIT?(%) 34.2?L 36.2 ??PLATELET?COUNT?(Thou/mm3) 293 316 ??NEUTROPHILS?%,?AUTO?(%) 69 73 ??LYMPH?%,?AUTO?(%) 18 16 ??NEUTROPHILS,?AUTO?(Thou/mm3) 3.1 5.2 ??GLUCOSE,RANDOM?(mg/dL) 170?H 133?H ??BLOOD?UREA?NITROGEN?(mg/dL) 7?L 9 ??CREATININE?(mg/dL) 0.50?L 0.70 ??SODIUM?(mmol/L) 139 141 ??POTASSIUM?(mmol/L) 3.6 3.9 ??CHLORIDE?(mmol/L) 106 104 ??CrCl?(CandG)?(ml/min) 158.45 113.18 ??AST/SGOT?(Unit/L) 12 14 ??ALT/SGPT?(Unit/L) 10 9?L ??ALKALINE?PHOSPHATASE?(Unit/L) 85 95 ??BILIRUBIN,?TOTAL?(mg/dL) 0.3 0.4 ??PROTEIN?TOTAL?(gm/dl) 6.2 6.8 ??ALBUMIN,?SERUM?(gm/dl) 3.8 4.5 ??GLOBULIN?(gm/dl) 2.4 2.3 ??ALBUMIN/GLOBULIN?RATIO 1.6 2.0 ??CALCIUM,?SERUM?(mg/dL) 8.7 9.9 ??CALCIUM?SERUM?(CORRECTED)?(mg/dL) 8.9 9.9 ASSESSMENT/PLAN:?Zachary Ramirez Assessment/Plan? #1 stage III C2 (para-aortic lymph node metastasis on PET/CT scan) adenosquamous carcinoma of the cervix. S/p chemoradiation plus pembrolizumab followed by brachytherapy at [facility] as documented above Continue adjuvant pembrolizumab 400 mg IV every 6 weeks for a total of 15 times as per keynote A [address] scan is concerning for left iliac lymph nodes MRI pelvis negative for any LN s Continue Pembro Patient asymptomatic #2 type 2 diabetes for last 9 years without any secondary sequelae. Follow-up with PCP MRI lumbar spine with and without contrast is negative CT scan shows numerous subcentimeter pulmonary nodules suspicious for pulmonary nodular metastatic disease disease. Repeat CT scan in [place] is negative Case was discussed with production maintenance technician and recommendation was to start chemotherapy with cis taxol jazlyn and pembro CA125 is responding to treatment and is now 43 patient has been on cisplatin and Taxol and Keytruda. Torrey presents with brain cancer, experiencing left-sided pain and numbness, including tongue involvement, and diabetes management concerns. Metastasis to brain Assessment: Head metastasis in the left temporal lobe that was deemed inoperable by neurosurgeons in [place]. Recent chemotherapy treatment was completed three weeks ago, with a hospital admission during that time. Recent scan showed no lung issues, indicating the current treatment is effective. The tumor is causing left-sided pain and numbness, including tongue involvement, due to the affected brain region. Plan: - Refer to Dr. Richter for radiation therapy - Schedule appointment with Dr. Richter for tomorrow - Continue current chemotherapy regimen - Initiate radiation therapy after completion of current chemotherapy cycle - Transition to immunotherapy after completion of chemotherapy - Consult with [facility] doctor for additional treatment options - Prescribe dexamethasone 2 mg PO with food during radiation therapy to prevent brain swelling - Follow up in 3-4 weeks to assess progress Cancer-related Pain Assessment: Patient reports inadequate pain control with npkj-wvv-qkgyqso medications (Tylenol and ibuprofen). Pain is likely related to brain tumor and its effects on surrounding tissues. Plan: - Prescribe hydrocodone/acetaminophen (Elm Mott) - Dispense 60 tablets - Take 1 tablet PO q8h PRN for pain - Educate patient to use Elm Mott if steroids do not provide immediate pain relief - Prescribe pantoprazole (Protonix) 1 tablet PO qAM to prevent gastric acidity - If not covered by insurance, recommend tlxr-bjt-kwzeamt omeprazole (Prilosec) - Educate patient to take steroids with lunch and dinner to avoid stomach issues Diabetes Mellitus Assessment: Patient has diabetes and is currently on steroids for chemotherapy, which is affecting blood glucose control. Recent glucose level was 88 mg/dL, which is within normal range. Plan: - Reduce steroid dose to better manage blood glucose levels - Avoid steroids until radiation therapy begins - Monitor blood glucose levels regularly ORDERS: Order # Description [id number] Follow Up 4 Month [id number] Comprehensive Metabolic Panel + CBC + CA 125 + Urinalysis [id number] Infusion 1 Hour [id number] CBC + Comprehensive Metabolic Panel + CEA [id number] Lab Appointment [id number] Follow Up Appointment [id number] Comprehensive Metabolic Panel + CBC with Auto Diff + CEA + Urinalysis, Automated with Microscopy [id number] Follow Up Appointment [id number] Follow Up Appointment [id number] Infusion 1 Hour [id number] CBC + Comprehensive Metabolic Panel + CEA [id number] Lab Appointment [id number] Thyroid Stimulating Hormone + Comprehensive Metabolic Panel + CBC with Auto Diff + Thyroxine, Free [id number] Comprehensive Metabolic Panel + CBC with Auto Diff + CEA + Urinalysis, Automated with Microscopy [id number] Follow Up Appointment [id number] Follow Up Appointment [id number] Infusion 1 Hour [id number] CBC + Comprehensive Metabolic Panel + CEA [id number] Lab Appointment [id number] Comprehensive Metabolic Panel + CBC with Auto Diff + CEA + Urinalysis, Automated with Microscopy [id number] Follow Up Appointment [id number] Follow Up Appointment [id number] Infusion 1 Hour [id number] CBC + Comprehensive Metabolic Panel + CEA [id number] Lab Appointment [id number] Thyroid Stimulating Hormone + Comprehensive Metabolic Panel + CBC with Auto Diff + Thyroxine, Free [id number] Comprehensive Metabolic Panel + CBC with Auto Diff + CEA + Urinalysis, Automated with Microscopy [id number] Follow Up Appointment [id number] Follow Up Appointment [id number] Infusion 1 Hour [id number] CBC + Comprehensive Metabolic Panel + CEA [id number] Lab Appointment [id number] Comprehensive Metabolic Panel + CBC with Auto Diff + CEA + Urinalysis, Automated with Microscopy [id number] Follow Up Appointment [id number] Follow Up Appointment [id number] Infusion 1 Hour [id number] CBC + Comprehensive Metabolic Panel + CEA [id number] Lab Appointment [id number] Thyroid Stimulating Hormone + Comprehensive Metabolic Panel + CBC with Auto Diff + Thyroxine, Free [id number] Comprehensive Metabolic Panel + CBC with Auto Diff + CEA + Urinalysis, Automated with Microscopy [id number] Follow Up Appointment [id number] Follow Up Appointment [id number] Infusion 1 Hour [id number] CBC + Comprehensive Metabolic Panel + CEA [id number] Lab Appointment [id number] Comprehensive Metabolic Panel + CBC with Auto Diff + CEA + Urinalysis, Automated with Microscopy [id number] Follow Up Appointment [id number] Follow Up Appointment [id number] Infusion 1 Hour [id number] CBC + Comprehensive Metabolic Panel + CEA [id number] Lab Appointment [id number] Thyroid Stimulating Hormone + Comprehensive Metabolic Panel + CBC with Auto Diff + Thyroxine, Free [id number] Comprehensive Metabolic Panel + CBC with Auto Diff + CEA + Urinalysis, Automated with Microscopy [id number] Follow Up Appointment [id number] Follow Up Appointment [id number] Infusion 1 Hour [id number] CBC + Comprehensive Metabolic Panel + CEA [id number] Lab Appointment [id number] Comprehensive Metabolic Panel + CBC with Auto Diff + CEA + Urinalysis, Automated with Microscopy [id number] Follow Up Appointment [id number] Follow Up Appointment [id number] Infusion 1 Hour 4380211 CBC + Comprehensive Metabolic Panel + CEA [id number] Lab Appointment [id number] Thyroid Stimulating Hormone + Comprehensive Metabolic Panel + CBC with Auto Diff + Thyroxine, Free [id number] Comprehensive Metabolic Panel + CBC with Auto Diff + CEA + Urinalysis, Automated with Microscopy [id number] Follow Up Appointment [id number] Follow Up Appointment [id number] Infusion 1 Hour [id number] CBC + Comprehensive Metabolic Panel + CEA [id number] Lab Appointment [id number] Comprehensive Metabolic Panel + CBC with Auto Diff + CEA + Urinalysis, Automated with Microscopy [id number] Follow Up Appointment [id number] Follow Up Appointment [id number] CBC + Comprehensive Metabolic Panel + CEA [id number] Lab Appointment [id number] Thyroid Stimulating Hormone + Comprehensive Metabolic Panel + CBC with Auto Diff + Thyroxine, Free 0974337 Follow Up Appointment [id number] CBC + Comprehensive Metabolic Panel + CEA [id number] Lab Appointment [id number] Follow Up Appointment [id number] CBC + Comprehensive Metabolic Panel + CEA [id number] Lab Appointment [id number] Follow Up Appointment [id number] CBC + Comprehensive Metabolic Panel + CEA [id number] Lab Appointment [id number] Follow Up Appointment [id number] CBC + Comprehensive Metabolic Panel + CEA [id number] Lab Appointment [id number] Follow Up Appointment [id number] CBC + Comprehensive Metabolic Panel + CEA [id number] Lab Appointment [id number] Follow Up Appointment [id number] CBC + Comprehensive Metabolic Panel + CEA [id number] Lab Appointment [id number] Follow Up Appointment [id number] CBC + Comprehensive Metabolic Panel + CEA [id number] Lab Appointment [id number] Follow Up Appointment [id number] CBC + Comprehensive Metabolic Panel + CEA [id number] Lab Appointment [id number] Follow Up Appointment [id number] CBC + Comprehensive Metabolic Panel + CEA [id number] Lab Appointment [id number] Follow Up Appointment [id number] CBC + Comprehensive Metabolic Panel + CEA [id number] Lab Appointment [id number] Follow Up Appointment RETURN TO CLINIC: I reviewed the diagnosis, prognosis, and recommended treatment/procedure options with the patient (and/or their legal district representative), including the potential benefits, risks, side effects and alternative therapies. We also discussed the option of no treatment and the possibility of clinical trial participation, if applicable. All questions were addressed, and they demonstrated understanding. They provided informed consent to proceed with the proposed plan of care. BILLING AND COMPLIANCE: I reviewed external records from providers outside my specialty as summarized above. I spent a total of 50 minutes on this patient?s care on the day of their visit excluding time spent related to any billed procedures. This time includes time spent with the patient as well as time spent documenting in the medical record, reviewing patients records and tests, obtaining history, placing orders, communicating with other healthcare professionals, counseling the patient, family or caregiver, and/or care coordination for the diagnoses above. Electronically Signed by: Joey Ramirez MD T: 3:41 PM CC: PCP: Aure Barrett V Referring: Aure Barrett V This document was completed utilizing speech recognition software. Grammatical errors, random word insertions, pronoun errors, and incomplete sentences are an occasional consequence of this system due to software limitations, ambient noise, and hardware issues. Any formal questions or concerns about the content, text or information contained within the body of this dictation should be directly addressed to the provider for clarification.
[2025-02-05 07:49] LABS: Basophils # (Auto) 0.0 Thou/mm3 (0.0-0.2); Basophils % (Auto) 1 % (0-2.5); Eosinophils # (Auto) 0.0 Thou/mm3 (0.0-0.5); Eosinophils % (Auto) 1 % (0-10); Hematocrit 33.9 % (36.0-46.0); Hemoglobin 12.4 g/dL (12.0-16.0); Immature Granulocytes Auto 0.02 Thou/mm3 (0.00-0.00); Lymphocytes # (Auto) 1.1 Thou/mm3 (1.0-4.8); Lymphocytes % (Auto) 20 % (10-50); Mean Corpuscular HGB Conc 36.6 g/dl (31.0-37.0); Mean Corpuscular Hemoglobin 30.0 pg (25.0-35.0); Mean Corpuscular Volume 82 fL (80-100); Monocytes # (Auto) 0.6 Thou/mm3 (0.0-0.8); Monocytes % (Auto) 10 % (0-12); Neutrophils # (Auto) 3.8 Thou/mm3 (1.8-7.7); Neutrophils % (Auto) 68 % (37-80); Nucleated Red Blood Cell # 0.00 Thou/mm3 (0.00-0.00); Nucleated Red Blood Cell % 0 /100 WBC (0); Platelet Count 294 Thou/mm3 (140-440); RDW Standard Deviation 40.3 fL (36.4-46.3); Red Blood Count 4.14 Miln/mm3 (4.00-5.20); White Blood Count 5.6 Thou/mm3 (3.6-11.0)
[2025-02-05 08:00] LABS: HCG,Qualitative Serum Negative
[2025-02-05 08:12] LABS: Carcinoembryonic Antigen 19.7 ng/mL (0.0-5.0)
[2025-02-05 08:17] LABS: Alanine Aminotransferase 7 U/L (10-49); Albumin, Serum 4.3 gm/dL (3.5-5.0); Albumin/Globulin Ratio 1.7 (1.2-2.2); Alkaline Phosphatase 82 U/L (46-116); Anion Gap 7 (7-16); Aspartate Amino Transferase 12 U/L (0-34); BUN/Creatinine Ratio 13 Ratio (12-20); Bilirubin,Total 0.4 mg/dL (0.3-1.2); Blood Urea Nitrogen 8 mg/dL (9-23); Calcium 9.4 mg/dL (8.3-10.6); Calcium (Corrected) 9.4 mg/dL (8.5-10.1); Carbon Dioxide 26.7 mMol/L (20.0-31.0); Chloride 104 mMol/L (98-107); Creatinine (Component) 0.6 mg/dL (0.6-1.3); Free T4 (Free Thyroxine) 1.24 ng/dL (0.89-1.76); Globulin 2.5 gm/dL (2.3-3.5); Glucose 109 mg/dL (74-106); Osmolality,Calculated 274 (275-295); Potassium 3.5 mMol/L (3.4-5.1); Sodium 138 mMol/L (136-145); Thyroid Stimulating Hormone 0.83 uIU/mL (0.55-4.78); Total Protein 6.8 gm/dL (5.7-8.2); eGFR > 60 See Note
[2025-02-05 08:34] LABS: Collection Type, Urine Voided
[2025-02-05 09:43] LABS: Bilirubin,Urine Negative (Negative); Blood,Urine Negative (Negative); Clarity,Urine Clear (Clear/Hazy); Color,Urine Yellow (Lt Yel-Yel); Glucose, Urine 4+ (Negative); Ketones,Urine 1+ (Negative); Leukocyte Esterase,Urine Positive (Negative); Nitrite,Urine Negative (Negative); PH,Urine 6.5 (5.0-7.0); Protein,Urine Trace (Neg - Trace); RBC,Urine 6 /hpf (0-3); Specific Gravity,Urine 1.030 (1.001-1.035); Squamous Epithelial Cell,Urine 6 /hpf (0-5); Urobilinogen,Urine Negative mg/dL (0.0-1.0); WBC,Urine 24 /hpf (0-5)
[2025-02-05 11:16] LABS: Magnesium 1.6 mg/dL (1.6-2.6)
[2025-02-25 14:06] LABS: Collection Type, Urine Voided
[2025-02-25 14:15] LABS: Basophils # (Auto) 0.0 Thou/mm3 (0.0-0.2); Basophils % (Auto) 1 % (0-2.5); Eosinophils # (Auto) 0.1 Thou/mm3 (0.0-0.5); Eosinophils % (Auto) 1 % (0-10); Hematocrit 35.2 % (36.0-46.0); Hemoglobin 12.4 g/dL (12.0-16.0); Immature Granulocytes Auto 0.07 Thou/mm3 (0.00-0.00); Lymphocytes # (Auto) 0.7 Thou/mm3 (1.0-4.8); Lymphocytes % (Auto) 9 % (10-50); Mean Corpuscular HGB Conc 35.2 g/dl (31.0-37.0); Mean Corpuscular Hemoglobin 30.5 pg (25.0-35.0); Mean Corpuscular Volume 87 fL (80-100); Monocytes # (Auto) 0.7 Thou/mm3 (0.0-0.8); Monocytes % (Auto) 8 % (0-12); Neutrophils # (Auto) 7.1 Thou/mm3 (1.8-7.7); Neutrophils % (Auto) 82 % (37-80); Nucleated Red Blood Cell # 0.00 Thou/mm3 (0.00-0.00); Nucleated Red Blood Cell % 0 /100 WBC (0); Platelet Count 287 Thou/mm3 (140-440); RDW Standard Deviation 41.1 fL (36.4-46.3); Red Blood Count 4.07 Miln/mm3 (4.00-5.20); White Blood Count 8.7 Thou/mm3 (3.6-11.0)
[2025-02-25 14:20] LABS: Bilirubin,Urine Negative (Negative); Blood,Urine Negative (Negative); Clarity,Urine Clear (Clear/Hazy); Color,Urine Colorless (Lt Yel-Yel); Glucose, Urine 4+ (Negative); Ketones,Urine Negative (Negative); Leukocyte Esterase,Urine Negative (Negative); Nitrite,Urine Negative (Negative); PH,Urine 6.0 (5.0-7.0); Protein,Urine Negative (Neg - Trace); RBC,Urine < 1 /hpf (0-3); Specific Gravity,Urine 1.006 (1.001-1.035); Squamous Epithelial Cell,Urine 4 /hpf (0-5); Urobilinogen,Urine Negative mg/dL (0.0-1.0); WBC,Urine 4 /hpf (0-5)
[2025-02-25 14:40] LABS: Alanine Aminotransferase 8 U/L (10-49); Albumin, Serum 4.0 gm/dL (3.5-5.0); Albumin/Globulin Ratio 1.7 (1.2-2.2); Alkaline Phosphatase 78 U/L (46-116); Anion Gap 12 (7-16); Aspartate Amino Transferase 11 U/L (0-34); BUN/Creatinine Ratio 14 Ratio (12-20); Bilirubin,Total 0.3 mg/dL (0.3-1.2); Blood Urea Nitrogen 10 mg/dL (9-23); Calcium 8.9 mg/dL (8.3-10.6); Calcium (Corrected) 8.9 mg/dL (8.5-10.1); Carbon Dioxide 26.1 mMol/L (20.0-31.0); Chloride 101 mMol/L (98-107); Creatinine (Component) 0.7 mg/dL (0.6-1.3); Globulin 2.4 gm/dL (2.3-3.5); Glucose 226 mg/dL (74-106); Osmolality,Calculated 283 (275-295); Potassium 3.5 mMol/L (3.4-5.1); Sodium 139 mMol/L (136-145); Thyroid Stimulating Hormone 0.44 uIU/mL (0.55-4.78); Total Protein 6.4 gm/dL (5.7-8.2); eGFR > 60 See Note
[2025-02-25 14:48] LABS: CA 125 17.0 U/mL (<30.2); Carcinoembryonic Antigen 29.6 ng/mL (0.0-5.0)
[2025-02-26 08:41] LABS: Free T4 (Free Thyroxine) 1.38 ng/dL (0.89-1.76)
--- NOTE | 2025-03-09 05:04 | CTCFLWUP_ITS ---
Patient: BERNABE HIRSCH : 1985 Page 6 of 7 FOLLOW UP NOTE DATE OF SERVICE: 03/02/2025 NAME: BERNABE HIRSCH ACCOUNT: [id number] : 1985 AGE: 39 INTERVAL HISTORY: Patient had just completed radiation to her brain lesion. Patient is still on steroids. Will start on dexamethasone taper. No new numbness or tingling or weakness. History of Present Illness Torrey presents with ongoing management of brain cancer, reporting pain on the left side and numbness, including on the tongue. These symptoms are attributed to the affected brain area. The patient's last treatment was three weeks ago, during which time they were hospitalized. The patient reports that Tylenol and ibuprofen have been ineffective in managing their pain. They have been experiencing high blood sugar levels, likely related to steroid use for chemotherapy. The patient's most recent glucose reading was 88, which is considered good. The patient's recent scan showed no lung issues, indicating that the current medication regimen is working. However, they continue to experience symptoms related to their brain cancer, necessitating consideration of radiation therapy. The patient has been referred to Dr. Richter for radiation treatment, as neurosurgeons in [place] determined that surgical removal was not an option. The patient's daily functioning has been impacted, as evidenced by their need for pain management and ongoing cancer treatments. They have been adhering to their chemotherapy regimen, though adjustments to their steroid dosage are being considered to better manage their diabetes. Medications and Supplements - Steroids - Taken for chemotherapy. - Causing high blood sugar. - Tylenol - Taken for pain. - Not effective. - Ibuprofen - Taken for pain. - Not effective. Review of Systems General: Positive for pain. HEENT: Positive for numbness on the tongue. Neurological: Positive for left-sided pain and numbness. 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 S/p pembrolizumab plus chemoradiation with cisplatin as chemosensitization agent (12/10/2023 - 01/14/2024) S/p brachytherapy at [facility] (01/15/2024 - 01/17/2024) Started on adjuvant pembrolizumab every 6 weeks on 02/21/2024. Plan is to give her a total of 15 treatments. 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 S/p pembrolizumab plus chemoradiation with cisplatin as chemosensitization agent (12/10/2023 - 01/14/2024) S/p brachytherapy at [facility] (01/15/2024 - 01/17/2024) Started on adjuvant pembrolizumab every 6 weeks on 02/21/2024. Plan is to give her a total of 15 treatments. Type 2 diabetes for last 9 years without any secondary sequelae. NOW STAGE 4 RECURRENCT CERVICAL CANCER . DATE OF DIAGNOSIS: 08/15/2023 STAGE/TNM: Stage III TREATMENT HISTORY: Care?Plan Start?Date Cycle Day Intent PembroCis?with?chemo-xrt?for?cervic?ca 12/10/2023 1 42 Palliative 2.?Pembro?adjuvant?keynote?A18 02/21/2024 1 42 Curative?(primary) Cispla?taxol?bevaciz?q?3?wks 10/06/2024 1 21 Maintenance Pembrolizumab?alone 09/30/2024 1 21 Palliative FERRlecit?she 11/04/2024 1 7 Maintenance Bevacizumab?15?mg/kg?-?Met 01/07/2025 1 21 Maintenance HISTORY OF PRESENT ILLNESS: Bernabe Hirsch is a 39-year-old SPA speaking female with following oncology history. Ms. Hirsch has been having vaginal bleeding intermittently for the last 6 months. She was also having vaginal discharge. For the last 1 months she has been having low pelvic pain. 08/15/2023: Ms. Hirsch had a Pap smear 10/02/2023: Ms. Hirsch had biopsy of the cervix mass 11/14/2023: MRI of the pelvis with IV contrast? 11/19/2023: PET/CT scan 12/10/2023 - 01/14/2024) /p pembrolizumab plus cisplatin chemoradiation 01/15/2024?01/17/2024: Ms. Hirsch had brachytherapy at [facility]. 02/21/2024: Ms. Hirsch received first dose of adjuvant pembrolizumab 400 mg IV. The plan is to give her once every 6 weeks for a total of 15 times. 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 Tobacco?Use:?Denies ETOH?Use:?Denies Drug?Note:?Denies Social?History?Note:?Lives?with? [employer] HISTORY: Menarche?-?Age:?16 Date?LMP:?10/03/2023 Date?of?last?pap?smear:?09/2023 Hormone?Use:?NEXPLANON?X?1?1/2?YEAR :?6 Live?Births:?3 Age?1st?:?29 Painful?intercourse:?N-No Gynecological?Note:?3?miscarriages MEDICATIONS: 1. atorvastatin - 20 mg 1 tab Daily 2. Benadryl Allergy - 50 mg 50 mg Daily 3. Compazine - 5 mg 5 mg Daily 4. dexamethasone - 4 mg 20 mg Daily 5. dexamethasone - 2 mg 1 tab twice Daily 6. Emend - 125 mg (1)- 80 mg (2) 1 Pack Daily 7. Estrace - 0.01 % (0.1 mg/gram) 1 gm Daily 8. HYDROcodone-acetaminophen - 5-300 mg 1 tab 1 tab every 8 hrs as needed for pain 9. hydrocodone-acetaminophen - 5-325 mg 1 tab q6 10. Jardiance - 10 mg 1 tab Daily 11. metFORMIN - 1,000 mg 1 tab Twice a Day 12. Mounjaro - 5 mg/0.5 mL 5 mg Weekly 13. ondansetron - 8 mg 8 mg Daily 14. Protonix - 20 mg 1 tab Daily Medications Last Reconciled by Vandana German MA on 03/02/2025 ALLERGIES: bevacizumab REVIEW OF SYSTEMS: A complete 14-point review of systems was performed and is negative except as noted in interval history. PHYSICAL EXAMINATION: VITAL SIGNS: Temperature?98.2, B/P?145/91, Oxygen?Saturation?100% Weight?172?lbs (Change?since?02/26/25:?-0.8?lbs) PAIN: 0 - No pain ECOG Performance Status: 0 - Asymptomatic and fully active GENERAL APPEARANCE: Appears well, in no apparent distress, appropriately interactive. HEENT: Normocephalic, no temporal wasting, normal conjunctiva, no scleral icterus, normal hearing, lips without lesions, neck normal range of motion. CARDIOVASCULAR: Not assessed. PULMONARY: Normal respiratory effort, no respiratory distress or use of accessory muscles, speaking in full sentences, no tachypnea. EXTREMITIES: No pedal edema or cyanosis. SKIN: Normal skin appearance. NEUROLOGIC: Alert and oriented x4. PSHYCHIATRIC: Appropriate affect, mood normal, behavior normal, intact thought and speech. LABORATORY DATA: I have personally reviewed and interpreted each of the patient?s relevant lab tests, abnormal findings are below: Date 02/25/25 ??WHITE?BLOOD?COUNT?(Thou/mm3) 8.7 ??RED?BLOOD?COUNT?(Miln/mm3) 4.07 ??HEMOGLOBIN?(gm/dl) 12.4 ??HEMATOCRIT?(%) 35.2?L ??PLATELET?COUNT?(Thou/mm3) 287 ??NEUTROPHILS?%,?AUTO?(%) 82?H ??LYMPH?%,?AUTO?(%) 9?L ??NEUTROPHILS,?AUTO?(Thou/mm3) 7.1 ??GLUCOSE,RANDOM?(mg/dL) 226?H ??BLOOD?UREA?NITROGEN?(mg/dL) 10 ??CREATININE?(mg/dL) 0.70 ??SODIUM?(mmol/L) 139 ??POTASSIUM?(mmol/L) 3.5 ??CHLORIDE?(mmol/L) 101 ??CrCl?(CandG)?(ml/min) 111.23 ??AST/SGOT?(Unit/L) 11 ??ALT/SGPT?(Unit/L) 8?L ??ALKALINE?PHOSPHATASE?(Unit/L) 78 ??BILIRUBIN,?TOTAL?(mg/dL) 0.3 ??PROTEIN?TOTAL?(gm/dl) 6.4 ??ALBUMIN,?SERUM?(gm/dl) 4.0 ??GLOBULIN?(gm/dl) 2.4 ??ALBUMIN/GLOBULIN?RATIO 1.7 ??CALCIUM,?SERUM?(mg/dL) 8.9 ??CALCIUM?SERUM?(CORRECTED)?(mg/dL) 8.9 ??CEA?(O*)?(ng/ml) 29.6?H ??CA?125?(O*)?(Unit/mL) 17.0 ASSESSMENT/PLAN: #1 stage III C2 (para-aortic lymph node metastasis on PET/CT scan) adenosquamous carcinoma of the cervix. S/p chemoradiation plus pembrolizumab followed by brachytherapy at [facility] as documented above Continue adjuvant pembrolizumab 400 mg IV every 6 weeks for a total of 15 times as per keynote A [address] scan is concerning for left iliac lymph nodes MRI pelvis negative for any LN s Continue Pembro Patient asymptomatic #2 type 2 diabetes for last 9 years without any secondary sequelae. Follow-up with PCP MRI lumbar spine with and without contrast is negative CT scan shows numerous subcentimeter pulmonary nodules suspicious for pulmonary nodular metastatic disease disease. Repeat CT scan in [place] is negative I will continue chemotherapy and repeat scan here to see stability of the disease systemically Metastasis to brain Assessment: Head metastasis in the left temporal lobe that was deemed inoperable by neurosurgeons in [place]. Recent chemotherapy treatment was completed three weeks ago, with a hospital admission during that time. Recent scan showed no lung issues, indicating the current treatment is effective. The tumor is causing left-sided pain and numbness, including tongue involvement, due to the affected brain region. Plan: Patient has completed radiation Will do brain MRI in a month Cancer-related Pain Assessment: Patient reports inadequate pain control with uafw-tlb-radyjyu medications (Tylenol and ibuprofen). Pain is likely related to brain tumor and its effects on surrounding tissues. Plan: - Prescribe hydrocodone/acetaminophen ([place]) - Dispense 60 tablets - Take 1 tablet PO q8h PRN for pain - Educate patient to use [place] if steroids do not provide immediate pain relief - Prescribe pantoprazole (Protonix) 1 tablet PO qAM to prevent gastric acidity - If not covered by insurance, recommend [id number] omeprazole (Prilosec) - Educate patient to take steroids with lunch and dinner to avoid stomach issues Diabetes Mellitus Assessment: Patient has diabetes and is currently on steroids for chemotherapy, which is affecting blood glucose control. Recent glucose level was 88 mg/dL, which is within normal range. Plan: - Reduce steroid dose to better manage blood glucose levels - Avoid steroids until radiation therapy begins - Monitor blood glucose levels regularly ORDERS: Order # Description [id number] CT Scan + Chest + Abdomen and Pelvis + With W/O Contrast [id number] MD Follow Up 4 Week + CA 125 RETURN TO CLINIC: I reviewed the diagnosis, prognosis, and recommended treatment/procedure options with the patient (and/or their legal new accounts representative), including the potential benefits, risks, side effects and alternative therapies. We also discussed the option of no treatment and the possibility of clinical trial participation, if applicable. All questions were addressed, and they demonstrated understanding. They provided informed consent to proceed with the proposed plan of care. BILLING AND COMPLIANCE: I reviewed external records from providers outside my specialty as summarized above. I spent a total of 50 minutes on this patient?s care on the day of their visit excluding time spent related to any billed procedures. This time includes time spent with the patient as well as time spent documenting in the medical record, reviewing patients records and tests, obtaining history, placing orders, communicating with other healthcare professionals, counseling the patient, family or caregiver, and/or care coordination for the diagnoses above. Electronically Signed by: {Object.Sanct_ID*PnP.NameFL@M}, {Object.Sanct_ID*PnP.Suffix@U} D: {Object.Sanct_Date} T: {Object.Sanct_Time} CC: PCP: Aure Barrett V Referring: Aure Barrett V This document was completed utilizing speech recognition software. Grammatical errors, random word insertions, pronoun errors, and incomplete sentences are an occasional consequence of this system due to software limitations, ambient noise, and hardware issues. Any formal questions or concerns about the content, text or information contained within the body of this dictation should be directly addressed to the provider for clarification.
== END 2025-03-05 23:59 | disposition home or self-care (01) ==
LOC: SCTC 09:06
PROVIDERS: PCP Nurse Practitioner; Referring Provider Nurse Practitioner; Visit Provider Internal Medicine Hematology & Oncology
DX: Z51.11 Encounter for antineoplastic chemotherapy (principal); Z51.0 Encounter for antineoplastic radiation therapy; C53.0 Malignant neoplasm of endocervix; C79.31 Secondary malignant neoplasm of brain; G89.3 Neoplasm related pain (acute) (chronic); R91.8 Other nonspecific abnormal finding of lung field; E11.9 Type 2 diabetes mellitus without complications
CPT/HCPCS: 36591; 77014; 77290; 77300; 77301; 77334; 77336; 77338; 77373; 80053; 81001; 82378; 83735; 84439; 84443; 84703; 85025; 86304; 96365; 96367; 96368; 96413; 96415; 96417; 99212; 99213; A4216; J1100; J1200; J1453; J1642; J1938; J2150; J2405; J2916; J3475; J3480; J3490; J7030; J7040; J7050; J9060; J9267; J9271; Q5126; G0463

== ENCOUNTER → 2025-03-12 | Outpatient (CLI) | payer MEDICAID, SELFPAY ==
--- NOTE | 2025-03-12 15:00 | XR_ITS ---
Examination: CTA chest, with intravenous contrast. CTA abdomen, with intravenous contrast. CTA pelvis, with intravenous contrast. CT chest without intravenous contrast CT abdomen without intravenous contrast CT pelvis without intravenous contrast 2-D sagittal and coronal reconstructions. 3-D reconstructions. Date and time of exam: March 12, 2025 1529 hours, comparison CT chest September 02, 2024, CT abdomen November 24, 2024 INDICATIONS: Diagnosis malignant neoplasm uterus one year ago restaging CTDI vol (mgy) 30.7 DLP (MGycm) 1445 Technique: Multiple CTA images, 2.0 mm slice thickness, obtained chest, abdomen, pelvis, with the high-resolution 64 slice scanner. 60 cc Isovue-370 is administered intravenously. Sagittal and coronal 2-D reconstructions are obtained. 3-D reconstructions, angiographic images are obtained. 3-D postprocessing, including vascular maximum intensity projections. Low dose protocols were performed. One or more of the following dose reduction techniques were used; automated exposure control, adjustment of the mA and/or KV according to patient size, use of iterative reconstruction technique. Findings: Interval right tracheobronchial lymphadenopathy, 8 mm, precarinal lymphadenopathy, 15 mm, right hilar adenopathy, 12 mm compared to September 02, 2024 Bilateral subcentimeter pulmonary nodules again noted Pulmonary nodule in the right lower lobe anteriorly 3 mm compared to 2 mm on September 02, 2024 5 mm pulmonary nodule left lower lobe image 225 New 4 mm pulmonary nodule right lower lobe image 223 No interval liver or splenic lesions No gallstones No pancreatic or adrenal mass Left lateral periaortic lymph node 5 mm compared to 3 mm November 24, 2024 New 3 mm lymph node lower right periaortic compared with November 24, 2024 Anteverted atrophic uterus with no uterine mass Urinary bladder wall is thickened up to 4 mm, air density in the urinary bladder Prominent osteopenia IMPRESSION: Interval 8 mm tracheobronchial, 15 mm precarinal and 12 mm right hilar lymphadenopathy compared to CT chest September 02, 2024 Right lower lobe pulmonary nodule 3 mm compared to 2 mm on September 02, 2024 New 5 mm pulmonary nodule left lower lobe, 4 mm pulmonary nodule right lower lobe compared with CT chest September 02, 2024 Left lateral periaortic lymph node 5 mm compared to [address] abdomen pelvis November 24, 2024 New 3 mm lymph node right para-aortic compared with CT abdomen pelvis November 24, 2024
== END | disposition home or self-care (01) ==
LOC: CCTX 14:58
PROVIDERS: PCP Nurse Practitioner; Referring Provider Internal Medicine Hematology & Oncology; Visit Provider Internal Medicine Hematology & Oncology
DX: C53.0 Malignant neoplasm of endocervix (principal)
CPT/HCPCS: 71270; 74178; A4649; Q9967

== ENCOUNTER 2025-04-01 13:33 | Outpatient (RCR) | payer MEDICAID, SELFPAY ==
--- NOTE | 2025-03-17 11:19 | CTCTSUMM_ITS ---
[facility] [address] [place], [place] [address] Treatment Summary Date: 03/17/2025 MR#: [id number] Name: BERNABE GONZALEZ : 1985 Dx: C53.0 Referring Physician: Ashley (A) Diagnosis: [ICD10] C53.0 Malignant neoplasm of endocervix; [ICD10] C79.31 Secondary malignant neoplasm of brain (B) Aim of Treatment: Palliative Curative (primary) Palliative Maintenance (C) Concomitant Chemotherapy: Yes (D) Radiation Dates: Prior pelvis radiation both external beam and brachytherapy 2023. For recently discovered brain mets was treated with SBRT as follows. Date 02/17/2025 through 03/03/2025 3000 cGy in 5 fractions. Treatment Prescription brain SRS 6 MV PHOT 3,000 cGy 5 600 cGy Approved (E) All dawson were treated using customized MLC Blocks (F) Finding at Discharge: Patient seen for first follow-up on 03/17/2025. Patient appeared to have tolerated treatment reasonably well had no significant pain or gait disturbance. MRI of the brain to be ordered and I will see her again in 2 months time. (G) Discharge Instructions and F/U Appt was given: The patient was also advised to continue follow-up with Dr. Ramirez and primary care physician: Electronically signed by: Usman Richetr MD, ZIGGY 03/17/2025 11:17 AM
[2025-03-18 14:03] LABS: Collection Type, Urine Voided
[2025-03-18 14:06] LABS: Basophils # (Auto) 0.0 Thou/mm3 (0.0-0.2); Basophils % (Auto) 0 % (0-2.5); Eosinophils # (Auto) 0.1 Thou/mm3 (0.0-0.5); Eosinophils % (Auto) 1 % (0-10); Hematocrit 36.2 % (36.0-46.0); Hemoglobin 12.8 g/dL (12.0-16.0); Immature Granulocytes Auto 0.03 Thou/mm3 (0.00-0.00); Lymphocytes # (Auto) 0.8 Thou/mm3 (1.0-4.8); Lymphocytes % (Auto) 13 % (10-50); Mean Corpuscular HGB Conc 35.4 g/dl (31.0-37.0); Mean Corpuscular Hemoglobin 31.1 pg (25.0-35.0); Mean Corpuscular Volume 88 fL (80-100); Monocytes # (Auto) 0.5 Thou/mm3 (0.0-0.8); Monocytes % (Auto) 9 % (0-12); Neutrophils # (Auto) 4.4 Thou/mm3 (1.8-7.7); Neutrophils % (Auto) 77 % (37-80); Nucleated Red Blood Cell # 0.00 Thou/mm3 (0.00-0.00); Nucleated Red Blood Cell % 0 /100 WBC (0); Platelet Count 249 Thou/mm3 (140-440); RDW Standard Deviation 42.7 fL (36.4-46.3); Red Blood Count 4.12 Miln/mm3 (4.00-5.20); White Blood Count 5.8 Thou/mm3 (3.6-11.0)
[2025-03-18 14:18] LABS: Bilirubin,Urine Negative (Negative); Blood,Urine Negative (Negative); Clarity,Urine Clear (Clear/Hazy); Color,Urine Yellow (Lt Yel-Yel); Glucose, Urine 4+ (Negative); Ketones,Urine Negative (Negative); Leukocyte Esterase,Urine Positive (Negative); Nitrite,Urine Negative (Negative); PH,Urine 6.0 (5.0-7.0); Protein,Urine Negative (Neg - Trace); RBC,Urine 2 /hpf (0-3); Specific Gravity,Urine 1.022 (1.001-1.035); Squamous Epithelial Cell,Urine 1 /hpf (0-5); Urobilinogen,Urine Negative mg/dL (0.0-1.0); WBC,Urine 16 /hpf (0-5)
[2025-03-18 14:38] LABS: Alanine Aminotransferase 9 U/L (10-49); Albumin, Serum 4.0 gm/dL (3.5-5.0); Albumin/Globulin Ratio 1.7 (1.2-2.2); Alkaline Phosphatase 95 U/L (46-116); Anion Gap 9 (7-16); Aspartate Amino Transferase 11 U/L (0-34); BUN/Creatinine Ratio 14 Ratio (12-20); Bilirubin,Total 0.3 mg/dL (0.3-1.2); Blood Urea Nitrogen 10 mg/dL (9-23); Calcium 9.5 mg/dL (8.3-10.6); Calcium (Corrected) 9.5 mg/dL (8.5-10.1); Carbon Dioxide 26.4 mMol/L (20.0-31.0); Chloride 102 mMol/L (98-107); Creatinine (Component) 0.7 mg/dL (0.6-1.3); Free T4 (Free Thyroxine) 1.44 ng/dL (0.89-1.76); Globulin 2.3 gm/dL (2.3-3.5); Glucose 273 mg/dL (74-106); Osmolality,Calculated 282 (275-295); Potassium 3.6 mMol/L (3.4-5.1); Sodium 137 mMol/L (136-145); Thyroid Stimulating Hormone 1.08 uIU/mL (0.55-4.78); Total Protein 6.3 gm/dL (5.7-8.2); eGFR > 60 See Note
[2025-03-18 14:44] LABS: CA 125 28.0 U/mL (<30.2); Carcinoembryonic Antigen 45.5 ng/mL (0.0-5.0)
--- NOTE | 2025-04-06 19:53 | CTCFLWUP_ITS ---
Patient: BERNABE HIRSCH : 1985 Page 5 of 8 FOLLOW UP NOTE DATE OF SERVICE: 04/01/2025 NAME: BERNABE HIRSCH ACCOUNT: [id number] : 1985 AGE: 39 INTERVAL HISTORY: Patient had just completed radiation to her brain lesion. Patient had reaction to cisplatin infusion. Cisplatin was stopped. Patient has been progressing on cisplatin bevacizumab Keytruda and Taxol. Patient is receiving carboplatin and bevacizumab Keytruda and Taxol while awaiting for approval of second line therapy with Tivdak. Once patient has completed visiting her vocal music instructor and principal cloud architect will start Tivdak at 2 mg/kg. History of Present Illness Torrey presents with ongoing management of brain cancer, reporting pain on the left side and numbness, including on the tongue. These symptoms are attributed to the affected brain area. The patient's last treatment was three weeks ago, during which time they were hospitalized. The patient reports that Tylenol and ibuprofen have been ineffective in managing their pain. They have been experiencing high blood sugar levels, likely related to steroid use for chemotherapy. The patient's most recent glucose reading was 88, which is considered good. The patient's recent scan showed no lung issues, indicating that the current medication regimen is working. However, they continue to experience symptoms related to their brain cancer, necessitating consideration of radiation therapy. The patient has been referred to Dr. Richter for radiation treatment, as neurosurgeons in [place] determined that surgical removal was not an option. The patient's daily functioning has been impacted, as evidenced by their need for pain management and ongoing cancer treatments. They have been adhering to their chemotherapy regimen, though adjustments to their steroid dosage are being considered to better manage their diabetes. Medications and Supplements - Steroids - Taken for chemotherapy. - Causing high blood sugar. - Tylenol - Taken for pain. - Not effective. - Ibuprofen - Taken for pain. - Not effective. Review of Systems General: Positive for pain. HEENT: Positive for numbness on the tongue. Neurological: Positive for left-sided pain and numbness. ONCOLOGY HISTORY:?[facility] Oncology Hx? 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 S/p pembrolizumab plus chemoradiation with cisplatin as chemosensitization agent (12/10/2023 - 01/14/2024) S/p brachytherapy at [facility] (01/15/2024 - 01/17/2024) Started on adjuvant pembrolizumab every 6 weeks on 02/21/2024. Plan is to give her a total of 15 treatments. 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 S/p pembrolizumab plus chemoradiation with cisplatin as chemosensitization agent (12/10/2023 - 01/14/2024) S/p brachytherapy at [facility] (01/15/2024 - 01/17/2024) Started on adjuvant pembrolizumab every 6 weeks on 02/21/2024. Plan is to give her a total of 15 treatments. Type 2 diabetes for last 9 years without any secondary sequelae. NOW STAGE 4 RECURRENCT CERVICAL CANCER . DATE OF DIAGNOSIS: 08/15/2023 STAGE/TNM: Stage III TREATMENT HISTORY: Care?Plan Start?Date Cycle Day Intent PembroCis?with?chemo-xrt?for?cervic?ca 12/10/2023 1 42 Palliative 2.?Pembro?adjuvant?keynote?A18 02/21/2024 1 42 Curative?(primary) Cispla?taxol?bevaciz?q?3?wks 10/06/2024 1 21 Maintenance Pembrolizumab?alone 09/30/2024 1 21 Palliative FERRlecit?she 11/04/2024 1 7 Maintenance Bevacizumab?15?mg/kg?-?Met 01/07/2025 1 21 Maintenance CARBoplatin?AUC?5;?PACLitaxel?175?jazlyn?15 03/31/2025 1 21 Palliative HISTORY OF PRESENT ILLNESS: Bernabe Hirsch is a 39-year-old SPA speaking female with following oncology history. Ms. Hirsch has been having vaginal bleeding intermittently for the last 6 months. She was also having vaginal discharge. For the last 1 months she has been having low pelvic pain. 08/15/2023: Ms. Hirsch had a Pap smear 10/02/2023: Ms. Hirsch had biopsy of the cervix mass 11/14/2023: MRI of the pelvis with IV contrast? 11/19/2023: PET/CT scan 12/10/2023 - 01/14/2024) /p pembrolizumab plus cisplatin chemoradiation 01/15/2024?01/17/2024: Ms. Hirsch had brachytherapy at [facility]. 02/21/2024: Ms. Hirsch received first dose of adjuvant pembrolizumab 400 mg IV. The plan is to give her once every 6 weeks for a total of 15 times. 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 Tobacco?Use:?Denies ETOH?Use:?Denies Drug?Note:?Denies Social?History?Note:?Lives?with? 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 atorvastatin - 20 mg 1 tab Daily 2. Benadryl Allergy - 50 mg 50 mg Daily 3. benzonatate - 100 mg 2 Capsule Daily 4. Compazine - 5 mg 5 mg Daily 5. dexamethasone - 4 mg 20 mg Daily 6. dexamethasone - 2 mg 1 tab twice Daily 7. Emend - 125 mg (1)- 80 mg (2) 1 Pack Daily 8. Estrace - 0.01 % (0.1 mg/gram) 1 gm Daily 9. HYDROcodone-acetaminophen - 5-300 mg 1 tab 1 tab every 8 hrs as needed for pain 10. hydrocodone-acetaminophen - 5-325 mg 1 tab q6 11. Jardiance - 10 mg 1 tab Daily 12. metFORMIN - 1,000 mg 1 tab Twice a Day 13. Mounjaro - 5 mg/0.5 mL 5 mg Weekly 14. ondansetron - 8 mg 8 mg Daily 15. Protonix - 20 mg 1 tab Daily 16. Tessalon Perle - 100 mg 1 Capsule Three times a day?Palabra Meds? Medications Last Reconciled by Bernabe Rosales MD on 04/01/2025 ALLERGIES: bevacizumab; CISPLATIN; CISPLATIN REVIEW OF SYSTEMS: A complete 14-point review of systems was performed and is negative except as noted in interval history. PHYSICAL EXAMINATION:?CloneBlock PE? VITAL SIGNS: Temperature?99.1, B/P?136/84, Oxygen?Saturation?100% Weight?175?lbs (Change?since?03/20/25:?-0.4?lbs) PAIN: 0 - No pain ECOG Performance Status: 0 - Asymptomatic and fully active GENERAL APPEARANCE: Appears well, in no apparent distress, appropriately interactive. HEENT: Normocephalic, no temporal wasting, normal conjunctiva, no scleral icterus, normal hearing, lips without lesions, neck normal range of motion. CARDIOVASCULAR: Not assessed. PULMONARY: Normal respiratory effort, no respiratory distress or use of accessory muscles, speaking in full sentences, no tachypnea. EXTREMITIES: No pedal edema or cyanosis. SKIN: Normal skin appearance. NEUROLOGIC: Alert and oriented x4. PSHYCHIATRIC: Appropriate affect, mood normal, behavior normal, intact thought and speech. LABORATORY DATA: I have personally reviewed and interpreted each of the patient?s relevant lab tests, abnormal findings are below: Date 03/18/25 ??WHITE?BLOOD?COUNT?(Thou/mm3) 5.8 ??RED?BLOOD?COUNT?(Miln/mm3) 4.12 ??HEMOGLOBIN?(gm/dl) 12.8 ??HEMATOCRIT?(%) 36.2 ??PLATELET?COUNT?(Thou/mm3) 249 ??NEUTROPHILS?%,?AUTO?(%) 77 ??LYMPH?%,?AUTO?(%) 13 ??NEUTROPHILS,?AUTO?(Thou/mm3) 4.4 ??GLUCOSE,RANDOM?(mg/dL) 273?H ??BLOOD?UREA?NITROGEN?(mg/dL) 10 ??CREATININE?(mg/dL) 0.70 ??SODIUM?(mmol/L) 137 ??POTASSIUM?(mmol/L) 3.6 ??CHLORIDE?(mmol/L) 102 ??CrCl?(CandG)?(ml/min) 112.68 ??AST/SGOT?(Unit/L) 11 ??ALT/SGPT?(Unit/L) 9?L ??ALKALINE?PHOSPHATASE?(Unit/L) 95 ??BILIRUBIN,?TOTAL?(mg/dL) 0.3 ??PROTEIN?TOTAL?(gm/dl) 6.3 ??ALBUMIN,?SERUM?(gm/dl) 4.0 ??GLOBULIN?(gm/dl) 2.3 ??ALBUMIN/GLOBULIN?RATIO 1.7 ??CALCIUM,?SERUM?(mg/dL) 9.5 ??CALCIUM?SERUM?(CORRECTED)?(mg/dL) 9.5 ??CEA?(O*)?(ng/ml) 45.5?H ??CA?125?(O*)?(Unit/mL) 28.0 ASSESSMENT/PLAN:?Zachary Ramirez Assessment/Plan? #1 stage III C2 (para-aortic lymph node metastasis on PET/CT scan) adenosquamous carcinoma of the cervix. S/p chemoradiation plus pembrolizumab followed by brachytherapy at [facility] Patient was found to have metastatic disease and underwent radiation to her brain Patient has systemic progression Had reaction to cisplatin Chemotherapy switched to carboplatin Taxol bevacizumab and Keytruda Will continue the therapy until Tivdak is approved for patient Pharmacy team is working to make a new plan of Tivdak and once done will start her on new treatment 1 Recommended Dosage The recommended dose of TIVDAK is 2 mg/kg (up to a maximum of 200 mg for patients =100 kg) administered as an intravenous infusion over 30 minutes every 3 weeks until disease progression or unacceptable toxicity. 2.2 Premedication and Required Eye Care Adhere to the following recommendations to reduce the risk of ocular adverse reactions [see Warnings and Precautions (5.1)]. ? Ophthalmic exam by eye care provider: Conduct an ophthalmic exam prior to initiation of TIVDAK, prior to every cycle for the first nine cycles, and as clinically indicated. The ophthalmic exam should include visual acuity, slit lamp exam of the anterior segment of the eye, and an assessment of normal eye movement. ? Topical corticosteroid eye drops: Instruct patients to administer one drop in each eye prior to each infusion and to continue to administer eye drops in each eye three times daily for 72 hours after each infusion. The initial prescription and all renewals of any corticosteroid medication should be made only after examination with a slit lamp. ? Topical ocular vasoconstrictor drops: Administer in each eye immediately prior to each infusion of TIVDAK. ? Cold packs: Use cooling eye pads during each infusion of TIVDAK. ? Topical lubricating eye drops: Instruct patients to administer for the duration of therapy and for 30 days after the last dose of TIVDAK. ? Advised to give above information to her principal cloud architect. Printed instructions were given to Ms. Hirsch Cancer-related Pain Assessment: Patient reports inadequate pain control with rclg-wgo-svmxsub medications (Tylenol and ibuprofen). Pain is likely related to brain tumor and its effects on surrounding tissues. Plan: - Prescribe hydrocodone/acetaminophen ([place]) - Dispense 60 tablets - Take 1 tablet PO q8h PRN for pain - Educate patient to use [place] if steroids do not provide immediate pain relief - Prescribe pantoprazole (Protonix) 1 tablet PO qAM to prevent gastric acidity - If not covered by insurance, recommend imom-ohu-zjwtpyz omeprazole (Prilosec) - Educate patient to take steroids with lunch and dinner to avoid stomach issues Diabetes Mellitus Assessment: Patient has diabetes and is currently on steroids for chemotherapy, which is affecting blood glucose control. Recent glucose level was 88 mg/dL, which is within normal range. Plan: - Reduce steroid dose to better manage blood glucose levels - Avoid steroids until radiation therapy begins - Monitor blood glucose levels regularly ORDERS: Order # Description [id number] Follow Up 2 Months [id number] MRI + Brain + With Contrast [id number] Follow Up Appointment [id number] Follow Up Appointment [id number] Infusion 1 Hour [id number] Infusion 1 Hour [id number] CBC + Comprehensive Metabolic Panel + CEA [id number] Lab Appointment [id number] Comprehensive Metabolic Panel + CBC + CA 125 + Urinalysis [id number] Follow Up Appointment [id number] Thyroid Stimulating Hormone + Comprehensive Metabolic Panel + CBC with Auto Diff + Thyroxine, Free [id number] Infusion 5 Hours [id number] Comprehensive Metabolic Panel + CBC with Auto Diff + CEA + Urinalysis, Automated with Microscopy [id number] Comprehensive Metabolic Panel + CBC with Auto Diff + CEA + Urinalysis, Automated with Microscopy [id number] Follow Up Appointment [id number] Follow Up Appointment [id number] Follow Up Appointment [id number] CBC + Comprehensive Metabolic Panel + CEA [id number] Lab Appointment [id number] Infusion 1 Hour [id number] Comprehensive Metabolic Panel + CBC + CA 125 + Urinalysis [id number] Follow Up Appointment [id number] Infusion 5 Hours [id number] Comprehensive Metabolic Panel + CBC with Auto Diff + CEA + Urinalysis, Automated with Microscopy [id number] Follow Up Appointment [id number] Follow Up Appointment [id number] CBC + Comprehensive Metabolic Panel + CEA [id number] Lab Appointment [id number] Infusion 1 Hour [id number] Comprehensive Metabolic Panel + CBC + CA 125 + Urinalysis [id number] Follow Up Appointment [id number] Thyroid Stimulating Hormone + Comprehensive Metabolic Panel + CBC with Auto Diff + Thyroxine, Free [id number] Infusion 5 Hours [id number] Comprehensive Metabolic Panel + CBC with Auto Diff + CEA + Urinalysis, Automated with Microscopy [id number] Follow Up Appointment [id number] Follow Up Appointment [id number] CBC + Comprehensive Metabolic Panel + CEA [id number] Lab Appointment [id number] Infusion 1 Hour [id number] Comprehensive Metabolic Panel + CBC + CA 125 + Urinalysis [id number] Follow Up Appointment [id number] Infusion 5 Hours [id number] Comprehensive Metabolic Panel + CBC with Auto Diff + CEA + Urinalysis, Automated with Microscopy [id number] Follow Up Appointment [id number] Follow Up Appointment [id number] CBC + Comprehensive Metabolic Panel + CEA [id number] Lab Appointment [id number] Infusion 1 Hour [id number] Comprehensive Metabolic Panel + CBC + CA 125 + Urinalysis [id number] Follow Up Appointment [id number] Thyroid Stimulating Hormone + Comprehensive Metabolic Panel + CBC with Auto Diff + Thyroxine, Free 5178415 Infusion 5 Hours [id number] Comprehensive Metabolic Panel + CBC with Auto Diff + CEA + Urinalysis, Automated with Microscopy [id number] Follow Up Appointment [id number] Follow Up Appointment [id number] CBC + Comprehensive Metabolic Panel + CEA [id number] Lab Appointment [id number] Infusion 1 Hour [id number] Comprehensive Metabolic Panel + CBC + CA 125 + Urinalysis [id number] Follow Up Appointment [id number] Comprehensive Metabolic Panel + CBC with Auto Diff + CEA + Urinalysis, Automated with Microscopy [id number] Follow Up Appointment [id number] Follow Up Appointment [id number] CBC + Comprehensive Metabolic Panel + CEA [id number] Lab Appointment [id number] Infusion 1 Hour 5410713 Thyroid Stimulating Hormone + Comprehensive Metabolic Panel + CBC with Auto Diff + Thyroxine, Free [id number] Comprehensive Metabolic Panel + CBC with Auto Diff + CEA + Urinalysis, Automated with Microscopy [id number] Follow Up Appointment [id number] Follow Up Appointment [id number] CBC + Comprehensive Metabolic Panel + CEA [id number] Lab Appointment [id number] Infusion 1 Hour 1462906 Comprehensive Metabolic Panel + CBC with Auto Diff + CEA + Urinalysis, Automated with Microscopy [id number] Follow Up Appointment [id number] Follow Up Appointment [id number] CBC + Comprehensive Metabolic Panel + CEA [id number] Lab Appointment [id number] Infusion 1 Hour [id number] Thyroid Stimulating Hormone + Comprehensive Metabolic Panel + CBC with Auto Diff + Thyroxine, Free [id number] Comprehensive Metabolic Panel + CBC with Auto Diff + CEA + Urinalysis, Automated with Microscopy [id number] Follow Up Appointment [id number] Follow Up Appointment [id number] CBC + Comprehensive Metabolic Panel + CEA [id number] Lab Appointment [id number] Follow Up Appointment [id number] CBC + Comprehensive Metabolic Panel + CEA [id number] Lab Appointment [id number] Follow Up Appointment [id number] CBC + Comprehensive Metabolic Panel + CEA [id number] Lab Appointment [id number] Follow Up Appointment [id number] CBC + Comprehensive Metabolic Panel + CEA [id number] Lab Appointment [id number] Follow Up Appointment [id number] CBC + Comprehensive Metabolic Panel + CEA [id number] Lab Appointment [id number] Follow Up Appointment [id number] CBC + Comprehensive Metabolic Panel + CEA [id number] Lab Appointment [id number] Follow Up Appointment [id number] CBC + Comprehensive Metabolic Panel + CEA [id number] Lab Appointment [id number] Follow Up Appointment [id number] CBC + Comprehensive Metabolic Panel + CEA [id number] Lab Appointment [id number] Follow Up Appointment [id number] CBC + Comprehensive Metabolic Panel + CEA [id number] Lab Appointment [id number] Follow Up Appointment [id number] CBC + Comprehensive Metabolic Panel + CEA [id number] Lab Appointment [id number] Follow Up Appointment RETURN TO CLINIC: I reviewed the diagnosis, prognosis, and recommended treatment/procedure options with the patient (and/or their legal communications representative), including the potential benefits, risks, side effects and alternative therapies. We also discussed the option of no treatment and the possibility of clinical trial participation, if applicable. All questions were addressed, and they demonstrated understanding. They provided informed consent to proceed with the proposed plan of care. BILLING AND COMPLIANCE: I reviewed external records from providers outside my specialty as summarized above. I spent a total of 50 minutes on this patient?s care on the day of their visit excluding time spent related to any billed procedures. This time includes time spent with the patient as well as time spent documenting in the medical record, reviewing patients records and tests, obtaining history, placing orders, communicating with other healthcare professionals, counseling the patient, family or caregiver, and/or care coordination for the diagnoses above. Electronically Signed by: Joey Ramirez MD T: 7:50 PM CC: PCP: Aure Barrett V Referring: Aure Barrett V This document was completed utilizing speech recognition software. Grammatical errors, random word insertions, pronoun errors, and incomplete sentences are an occasional consequence of this system due to software limitations, ambient noise, and hardware issues. Any formal questions or concerns about the content, text or information contained within the body of this dictation should be directly addressed to the provider for clarification.
== END 2025-04-05 23:59 | disposition home or self-care (01) ==
LOC: SCTC 13:33
PROVIDERS: PCP Nurse Practitioner; Referring Provider Nurse Practitioner; Visit Provider Internal Medicine Hematology & Oncology
DX: Z51.11 Encounter for antineoplastic chemotherapy (principal); C53.0 Malignant neoplasm of endocervix; C79.31 Secondary malignant neoplasm of brain
CPT/HCPCS: 36591; 80053; 81001; 82378; 84439; 84443; 85025; 86304; 96367; 96368; 96375; 96413; 96415; 96417; 99212; A4216; J1100; J1200; J1453; J1642; J2150; J2405; J2919; J3475; J3480; J3490; J7040; J7050; J9060; J9267; J9271; Q5126; G0463

== ENCOUNTER 2025-04-20 09:16 | Emergency (ER) | payer MEDICAID, SELFPAY ==
[2025-04-20 09:18] VITALS: BMI 27.4
[2025-04-20 09:28] VITALS: BP 120/89; PULSE 133; RESP 20; TEMP 37.1; O2SAT 98
--- NOTE | 2025-04-20 09:50 | EKG_ITS ---
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
--- NOTE | 2025-04-20 09:50 | XR_ITS ---
Lesion: AP chest single view TECHNIQUE: AP portable sitting chest single view Date and time: April 20, 2025 1024 hours, comparison September 29, 2024 INDICATIONS: Coughing beginning 2 days ago. FINDINGS: Diffuse bilateral pneumonia which may be miliary Right internal jugular Port-A-Cath tip satisfactory position. Normal heart size IMPRESSION: Diffuse bilateral pneumonia
--- NOTE | 2025-04-20 09:53 | EDNOTE_ITS ---
<Statement entered by Eva Campbell MD - 04/20/25 17:42> I, Eva Campbell MD, have reviewed the history, exam, and assessment of the patient. I have evaluated the patient independently and agree with the plan of care documented by [ ]. All diagnostic studies were reviewed and discussed. I confirm the diagnosis as documented by the Resident. I was present during the Medical Decision Making for this patient. The patient's plan of care was created between myself and the Resident and consistent with our discussion of the patient's case. Upper Respiratory Inf. RME/HPI General Chief Complaint: Flu Like Symptoms Stated Complaint: MADRIGAL x 1 WEEK, HIGH HEARTRATE AT CTC TODAY Time Seen by Provider: 04/20/25 09:25 Arrival date/time: 04/20/25 09:16 RME / HPI RME / HPI Narrative: Ms. 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 Patient on evaluation reported that she has been having a cough feeling sick for about a month and having a headache since the last 1 week, she also complains of dysuria and sensation of discomfort during urination. Patient complains of some nausea otherwise denies any vomiting, diarrhea, chest pain and bilateral lower extremity swelling. Related Data Home Medications ?Medication ?Instructions ?Recorded ?Confirmed metformin 1,000 mg tablet 1,000 mg PO BID 01/31/22 atorvastatin 20 mg tablet 20 mg PO QDAY 11/29/2304/20 tirzepatide 5 mg/0.5 mL 5 mg subcut QWEEK 11/29/23 0 04/20/25 subcutaneous pen injector ([place]) Previous Rx's ?Medication ?Instructions ?Recorded cefpodoxime 200 mg tablet 200 mg PO BID UTI 10 days #2 0 tabs 04/20/25 hydrocodone 5 mg-acetaminophen 325 1 tab PO Q8H PRN pa in (scale score 04/20/25 mg tablet 5-10) 7 days #20 tabs Allergies Allergy/AdvReac Type Severity Reaction Status Date / Time bevacizumab Allergy Severe Palpitation Verified 04/20/25 09:21 s Review of Systems Review of Systems Systems Reviewed: All systems reviewed, normal except as documented Past Medical History Past Medical History NEUROLOGIC: Negative Neurological Disorders or Seizures CARDIAC: Positive Hypercholesterolemia; Negative Cardiac Disorders, Congestive Heart Failure or Hypertension RESPIRATORY: Negative Chronic Obstructive Pulmonary Disease (COPD) or Asthma GASTROINTESTINAL: Negative Gastrointestinal Disorders GENITOURINARY: Negative Genitourinary Disorders or Renal Disease REPRODUCTIVE: Positive Previous Pregnancies (x6) MUSCULOSKELETAL: Negative Musculoskeletal Disorders ENDOCRINE: Positive Endocrine Disorders, Diabetes Mellitus Type 2 and Hypothyroidism; Negative Diabetes Mellitus Type 1 HEMATOLOGIC: Positive Anemia; Negative Blood Disorders, Leukemia, Hemophilia, Thalassemia, Sickle Cell Disease or Clotting Problems OTHER HISTORY: Positive Hospitalization (for infection), Chicken Pox, Cancer and Cervical Cancer; Negative Autoimmune Disease, Falls, Blood Transfusions, Blood Transfusion Reaction or Anesthesia Reactions Family History FAMILY HISTORY: Positive Family Cardiac Disorders and Family Cancer (sister cervical cancer); Negative Family Psychiatric Problems, Family Respiratory Disorders, Family Gastrointestinal Problems, Family Surgery or Family Anesthesia Reaction Surgical History SURGICAL: Positive Section ( x3); Negative Cardiac Surgery, Endocrine Surgery, Abdominal Surgery or Joint Replace ment Social History SMOKING STATUS: Never smoker ED Exam Narrative Physical exam: Physical Exam General: Awake and in no acute distress. Conversational and non-toxic appearing. HEENT: Normocephalic, atraumatic, mucous membranes moist. Heart: Sinus tachycardia, no murmurs. Lungs: Bilateral crackles Abdomen: Soft, nondistended, nontender, positive bowel sounds. ?No guarding or rebound tenderness. Neurologic: Alert and oriented x3, no gross neurological deficit, and patient able to move all 4 extremities. Extremities: No edema. Skin: No rash or ecchymoses. Course Course Course Narrative: Patient on presentation was tachycardic heart rate 133, temp 99.9, was given 1 L NS bolus, Zofran 4 mg x 1 and Tylenol 500 for headache Workup obtained EKG showed sinus tachycardia rate 114, QTc 446 CBC: WBC 7.8, hemoglobin 12.5, platelet 395 Coags: PT 12.4, APTT 38.9, D-dimer 2130 CMP: Sodium 136, potassium 3.5, chloride 98, bicarb 26.3, anion gap 12, BUN 11, creatinine 0.5, GFR greater than 60, glucose 189, lactate 1.0, corrected calcium 9.6, phosphorus 4.3, magnesium 1.4, bilirubin 0.4, AST ALT and alk phos unremarkable, troponin negative, TSH 0.52 free T4 1.52. Urinalysis: Ketones 2+, leukocyte esterase positive, WBC 53, urine culture sent Blood culture was sent as well Chest x-ray showed diffuse bilateral pneumonia CTA obtained stable mediastinal lymphadenopathy, negative for pulmonary emboli, 20 pulmonary nodules throughout the lung, abnormal interstitial disease throughout the lungs including lung bases with differential of pneumonia and atypical pulmonary edema Patient given another liter NS bolus, ceftriaxone 2 g x 1, doxycycline 100 mg x 1, morphine 4 mg x 1 for headache potassium 40 mEq and 4 g of magnesium. Patient was given another 500 cc bolus of and 2 mg of morphine for headache Patient's heart rate improved, further plan is to discharge patient home on cefpodoxime for 10 days to complete treatment for UTI, previous urine cultures reviewed were sensitive to antibiotics. Patient will be sent Hamilton for headache management. Discharge instructions provided as below Quality Measures none Orders Category Date Time Status Bedside COVID-19 Antigen Test NOW Care 04/20/25 09:55 Active Bedside Influenza A&B Antigen Test NOW Care 04/20/25 09:[address] Screening NOW Care 04/20/25 11:[address] Screening X1 Care 04/20/25 11:20 Completed Fryer Operator Q4H START 00 Care 04/20/25 09:54 Active Continuous Pulse Oximetry NOW Care 04/20/25 09:54 Completed EKG (ED ONLY) *Do not use* NOW Care 04/20/25 09:51 Completed Fingerstick [Bedside Blood Glucose] NOW Care 04/20/25 09:[address] angio chest Stat Exams 04/20/25 11:20 Completed CXRP [XR chest 1V portable] Stat Exams 04/20/25 09:50 Completed EKG (ED Only) Stat Exams 04/20/25 09:50 Draft Blood Culture (Lab) Stat Lab 04/20/25 11:32 Received CBC Stat Lab 04/20/25 09:55 Completed CMP [Comprehensive Metabolic Panel] Stat Lab 04/20/25 09:55 Completed D-Dimer Stat Lab 04/20/25 10:07 Completed Free T4 (Free Thyroxine) Stat Lab 04/20/25 09:55 Completed INR [Prothrombin Time with INR] Stat Lab 04/20/25 09:55 Completed Lactate (Lactic Acid) Stat Lab 04/20/25 10:07 Completed Magnesium Stat Lab 04/20/25 09:55 Completed PTT [Partial Thromboplastin Time] Stat Lab 04/20/25 09:55 Completed Phosphorous Stat Lab 04/20/25 09:55 Completed Procalcitonin Stat Lab 04/20/25 09:55 Completed Thyroid Stimulating Hormone Stat Lab 04/20/25 09:55 Completed Troponin I Stat Lab 04/20/25 09:55 Completed Urinalysis, C/S if Indicated Stat Lab 04/20/25 11:00 Completed Urine Culture Stat Lab 04/20/25 11:00 Received Acetaminophen Tab [Tylenol ES Tab] Med 04/20/25 10:27 Discontinued 500 mg PO X1 ONE Doxycycline Inj [Vibramycin Inj] 100 mg Med 04/20/25 11:05 Discontinued Sodium Chloride 0.9% (Pop) [NS 0.9% mini bag] 100 ml IV X1 HYDROcodone*/APAP 5/325 [Hamilton 5/325] Med 04/20/25 12:03 Discontinued 1 tab PO X1 ONE Magnesium Sulfate 4 GM Ivpb [Magnesium Sulfate Ivpb] Med 04/20/25 11:19 Discontinued 4 gm in 50 ml IV X1 Morphine* Inj Med 04/20/25 14:27 Discontinued 2 mg IVP X1 ONE Morphine* Inj Med 04/20/25 12:19 Discontinued 4 mg IVP X1 ONE Ondansetron Inj [Zofran Inj] Med 04/20/25 10:01 Active 4 mg IVP Q6HR PRN Potassium Chloride [K-Dur] Med 04/20/25 11:30 Discontinued 40 meq PO X1 ONE Sodium Chloride 0.9% 1000 ml [Ns] 1,000 ml Med 04/20/25 09:52 Discontinued IV 999 mls/hr Sodium Chloride 0.9% 1000 ml [Ns] 1,000 ml Med 04/20/25 11:04 Discontinued IV 999 mls/hr Sodium Chloride 0.9% 500 ml [Ns] 500 ml Med 04/20/25 14:20 Discontinued IV 999 mls/hr cefTRIAXone [Rocephin] 2 gm Med 04/20/25 11:05 Discontinued SODIUM CHLORIDE 0.9% (Popper) [Ns 0.9% (P)] 50 ml IV X1 Vital Signs Vital signs: Vital Signs Temperature 98.8 F 04/20/25 09:28 Pulse Rate 133 H 04/20/25 09:28 Respiratory Rate 20 04/20/25 09:28 Blood Pressure 120/89 H 04/20/25 09:28 Pulse Oximetry (%) 98 04/20/25 09:28 Oxygen Delivery Method Room Air 04/20/25 09:28 Upper Respiratory Infection MDM Narrative MDM Narrative:: # Complicated UTI # Suspicion of pneumonia # Sinus tachycardia, dehydration 39-year-old female on 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 presented with tachycardic heart rate 133, temp 99.9, EKG showed sinus tachycardia rate 114, QTc 446 White count unremarkable, elevated D-dimer to 2130 potassium 3.5 lactate 1.0 magnesium 1.4, Urinalysis: Ketones 2+, leukocyte esterase positive, WBC 53, Urine culture and blood culture was sent Chest x-ray showed diffuse bilateral pneumonia CTA obtained stable mediastinal lymphadenopathy, negative for pulmonary emboli, 20 pulmonary nodules throughout the lung, abnormal interstitial disease throughout the lungs including lung bases with differential of pneumonia and atypical pulmonary edema Patient was given total 2.5 L NS bolus, ceftriaxone 2 g x 1, Tylenol 500 x 1 doxycycline 100 mg x 1, morphine 4 mg x 1 for headache potassium 40 mEq and 4 g of magnesium additional 2 mg of morphine for headache Patient's heart rate improved, further plan is to discharge patient home on cefpodoxime for 10 days to complete treatment for UTI, previous urine cultures reviewed were sensitive to antibiotics. Patient will be sent Hamilton for headache management. Discharge instructions provided as below Case discussed with Attending Physician Dr. Adrian Armenta MD Internal Medicine PGY-2 Disclaimer: This note was dictated by speech recognition. Minor errors in parliamentary librarian may be present due to voice recognition software. Patient data External records reviewed:: [facility] previous records and Other (specify) (CTC Record) Clinical information provided by:: patient Social determinants that could affect healthcare access:: none Patient has the following chronic illnesses:: As Above How is presenting disease/condition affected by chronic disease/condition?: uneffected by Evaluation data The following diagnostics were reviewed and interpreted by me:: lab results, radiology exam(s) and EKG tracing(s) Lab and/or radiology exams considered but not ordered:: None Interpretation Summary: EKG showed sinus tachycardia rate 114, QTc 446 CBC: WBC 7.8, hemoglobin 12.5, platelet 395 Coags: PT 12.4, APTT 38.9, D-dimer 2130 CMP: Sodium 136, potassium 3.5, chloride 98, bicarb 26.3, anion gap 12, BUN 11, creatinine 0.5, GFR greater than 60, glucose 189, lactate 1.0, corrected calcium 9.6, phosphorus 4.3, magnesium 1.4, bilirubin 0.4, AST ALT and alk phos unremarkable, troponin negative, TSH 0.52 free T4 1.52. Urinalysis: Ketones 2+, leukocyte esterase positive, WBC 53, urine culture sent Blood culture was sent as well Chest x-ray showed diffuse bilateral pneumonia CTA obtained stable mediastinal lymphadenopathy, negative for pulmonary emboli, 20 pulmonary nodules throughout the lung, abnormal interstitial disease throughout the lungs including lung bases with differential of pneumonia and atypical pulmonary edema Medications / Prescriptions Medications or Prescriptions considered but not ordered:: None Medication administrations:: Medication Administration History Ondansetron HCl (Ondansetron Inj 2 Mg/Ml Inj 2 Ml) 4 mg IVP Q6HR PRN; Protocol PRN Reason: NAUSEA OR VOMITING Stop: 05/20/25 10:00 Last Admin: 04/20/25 10:12 Dose: 4 mg Documented By: CHRIS Discontinued Medications Acetaminophen (Acetaminophen 500 Mg Tablet) 500 mg PO X1 ONE Stop: 04/20/25 10:28 Last Admin: 04/20/25 10:52 Dose: 500 mg Documented By: CHRIS Hydrocodone Bitart/Acetaminophen (Hydrocodone/Apap 5/325 Tablet) 1 tab PO X1 ONE Stop: 04/20/25 12:04 Last Admin: 04/20/25 14:22 Dose: Not Given Documented By: CHRIS Non-Admin Reason: Discontinued Sodium Chloride (Ns) 1,000 mls @ 999 mls/hr IV .Q1H1M ONE Stop: 04/20/25 10:52 Last Infusion: 04/20/25 11:43 Dose: Infused Documented By: Admin: 04/20/25 10:10 Dose: 999 mls/hr Documented By: CHRIS Sodium Chloride (Ns) 1,000 mls @ 999 mls/hr IV .Q1H1M ONE Stop: 04/20/25 12:04 Last Infusion: 04/20/25 13:10 Dose: Infused Documented By: Admin: 04/20/25 11:37 Dose: 999 mls/hr Documented By: ROSA Ceftriaxone Sodium 2 gm/ (Sodium Chloride) 50 mls @ 100 mls/hr IV X1 ONE Stop: 04/20/25 11:34 Last Infusion: 04/20/25 13:00 Dose: Infused Documented By: Admin: 04/20/25 11:50 Dose: 100 mls/hr Documented By: ROSA Doxycycline Hyclate 100 mg/ (Sodium Chloride) 100 mls @ 100 mls/hr IV X1 ONE Stop: 04/20/25 12:04 Last Infusion: 04/20/25 14:05 Dose: Infused Documented By: Admin: 04/20/25 13:02 Dose: 100 mls/hr Documented By: CHRIS Magnesium Sulfate (Magnesium Sulfate Ivpb) 4 gm in 50 mls @ 12.5 mls/hr IV X1 ONE Stop: 04/20/25 15:18 Last Admin: 04/20/25 13:01 Dose: 12.5 mls/hr Documented By: CHRIS Sodium Chloride (Ns) 500 mls @ 999 mls/hr IV .Q31M ONE Stop: 04/20/25 14:50 Last Infusion: 04/20/25 15:05 Dose: Infused Documented By: Admin: 04/20/25 14:30 Dose: 999 mls/hr Documented By: CHRIS Morphine Sulfate (Morphine Sulf Inj 4 Mg/Ml Vial) 4 mg IVP X1 ONE Stop: 04/20/25 12:20 Last Admin: 04/20/25 12:47 Dose: 4 mg Documented By: CHRIS Morphine Sulfate (Morphine Sulf Inj 4 Mg/Ml Vial) 2 mg IVP X1 ONE Stop: 04/20/25 14:28 Last Admin: 04/20/25 14:49 Dose: 2 mg Documented By: CHRIS Potassium Chloride (Potassium Chloride 20 Meq Tabcr) 40 meq PO X1 ONE Stop: 04/20/25 11:31 Last Admin: 04/20/25 12:48 Dose: 40 meq Documented By: CHRIS As Above Consultations Consultation(s) initiated? (list below): No Diagnosis Upper Respiratory Differential Diagnosis: upper respiratory infection and other (PNA, UTI) Most likely diagnosis given after review of the tests above:: Complicated UTI, Suspicion of pneumonia, Sinus tachycardia, dehydration Admission Indicated Admission indicated?: not indicated Admission Request Was there a request for admission?: No Disposition Plan Disposition Plan: Discharge Discharge Attestation Discharge Attestation: The patient and all family members were given an opportunity to ask questions and understood the discharge instructions. Discharge instructions specifically effects, indications for sooner follow up or return to the emergency department, and the expected course of current diagnosis. Patient condition: Stable Discharge Plan Plan Patient Disposition: HOME (Self Care) Patient condition on transfer: Stable Health Concerns: Discharge Instructions / Instrucciones de Rison 1. You came to the emergency department due to a fast heart rate, and concern for infection. We did several tests and found no serious infection. * White blood cell count: normal * Lactate: normal * Chest CT scan: no pulmonary embolism * Low suspicion for pneumonia * You were diagnosed with a urinary tract infection (UTI) and received IV anti biotics. 1. Usted vino al departamento de emergencias por un ritmo card?aco acelerado y preocupaci?n de chelita infecci?n. Le hicimos varios estudios y no se encontr? infecci?n grave. * Gl?bulos blancos: normales * Lactato: normal * Tomograf?a de t?rax: sin embolia pulmonar * Baja sospecha de neumon?a * Se encontr? chelita infecci?n urinaria (UTI) y se le dieron antibi?ticos por vena (IV). 2. You were dehydrated, which may have caused your fast heart rate. We recommend drinking 2 to 3 liters of water per day. 2. Estaba deshidratado(a), lo cual pudo causar alejandro ritmo card?aco acelerado. Le recomendamos susan 2 a 3 litros de agua al d?a. 3. Finish your antibiotic treatment: Cefpodoxime 200 mg ? Take 1 tablet twice a day for 7 days 3. Termine alejandro tratamiento con antibi?tanner: Cefpodoxima 200 mg ? [place] 1 tableta dos veces al d?a por 7 d?as 4. For headaches, you may take Hamilton every 8 hours as needed. 4. Para el dolor de faisal, puede susan Hamilton cada 8 horas si lo necesita. 5. Continue taking all your regular home medications. 5. Contin?e tomando todos wilfrid medicamentos habituales. 6. Follow up with your oncologist within 1 week. 6. Monique chelita chuy con alejandro onc?logo en el transcurso de chelita semana. 7. Get your MRI done as scheduled (outpatient). 7. H?gase la resonancia magn?gregoria (MRI) seg?n lo programado (ambulatorio). 8. Follow up with your primary care doctor in 1 week. 8. Monique chelita chuy con alejandro m?dico de cabecera en 1 semana. 9. Return to the emergency department if your symptoms get worse. 9. Regrese al departamento de emergencias si wilfrid s?ntomas empeoran. Prescriptions/Referrals Prescriptions/Med Rec: New cefpodoxime 200 mg tablet 200 mg PO BID 10 Days Qty: 20 0RF Rx Instructions: must administer with a meal/food hydrocodone-acetaminophen 5-325 mg tablet 1 tab PO Q8H MDD 5-975 PRN (Reason: pain (scale score 5-10)) 7 Days Qty: 20 0RF Continued metformin 1,000 mg Tablet 1,000 mg PO BID atorvastatin 20 mg Tablet 20 mg PO QDAY Mounjaro 5 mg/0.5 mL Pen Injector 5 mg SUBCUT QWEEK Referrals: Joey Ramirez MD [Physician, Hematology & Oncology] - In 1 week Usman Richter MD [Physician, Radiation Oncology] - In 1 week No Primary/Family,Physician [Primary Care Provider] - In 1 week Problem List Clinical Impression: UTI (urinary tract infection), Dehydration Patient/Caregiver Discharge Instructions Discharge Activity: activity as tolerated Education Materials: Urinary Tract Infections in Women Print Language: Kiswahili Stand Alone Forms: Katelyn Award Info., Patient Portal Info Letter
[2025-04-20 09:59] VITALS: TEMP 37.7
[2025-04-20 10:00] VITALS: BP 125/96; PULSE 111; RESP 14; TEMP 36.8; O2SAT 97
[2025-04-20] MEDS: SODIUM CHLORIDE 0.9% 1000 ML 1,000 ML 999 ML IV ×2 (10:10→11:37)
[2025-04-20] MEDS: ONDANSETRON INJ 2 MG/ML INJ 2 ML 4 MG IVP (10:12)
[2025-04-20 10:28] LABS: Lactate (Lactic Acid) 1.0 mMol/L (0.4-2.0)
[2025-04-20 10:42] VITALS: PULSE 111
[2025-04-20 10:51] LABS: Basophils # (Auto) 0.0 Thou/mm3 (0.0-0.2); Basophils % (Auto) 1 % (0-2.5); Eosinophils # (Auto) 0.0 Thou/mm3 (0.0-0.5); Eosinophils % (Auto) 1 % (0-10); Hematocrit 35.5 % (36.0-46.0); Hemoglobin 12.5 g/dL (12.0-16.0); Immature Granulocytes Auto 0.06 Thou/mm3 (0.00-0.00); Lymphocytes # (Auto) 0.8 Thou/mm3 (1.0-4.8); Lymphocytes % (Auto) 10 % (10-50); Mean Corpuscular HGB Conc 35.2 g/dl (31.0-37.0); Mean Corpuscular Hemoglobin 30.3 pg (25.0-35.0); Mean Corpuscular Volume 86 fL (80-100); Monocytes # (Auto) 0.7 Thou/mm3 (0.0-0.8); Monocytes % (Auto) 9 % (0-12); Neutrophils # (Auto) 6.1 Thou/mm3 (1.8-7.7); Neutrophils % (Auto) 79 % (37-80); Nucleated Red Blood Cell # 0.00 Thou/mm3 (0.00-0.00); Nucleated Red Blood Cell % 0 /100 WBC (0); Platelet Count 395 Thou/mm3 (140-440); RDW Standard Deviation 38.7 fL (36.4-46.3); Red Blood Count 4.13 Miln/mm3 (4.00-5.20); White Blood Count 7.8 Thou/mm3 (3.6-11.0)
[2025-04-20 10:52] LABS: INR 1.1 (0.9-1.3); Partial Thromboplastin Time 38.9 Seconds (22.0-36.0); Prothrombin Time 12.4 Seconds (9.0-12.2)
[2025-04-20] MEDS: ACETAMINOPHEN 500 MG TABLET PO (10:52)
[2025-04-20 11:08] LABS: Alanine Aminotransferase < 7 U/L (10-49); Albumin, Serum 4.2 gm/dL (3.5-5.0); Albumin/Globulin Ratio 1.5 (1.2-2.2); Alkaline Phosphatase 94 U/L (46-116); Anion Gap 12 (7-16); Aspartate Amino Transferase 13 U/L (0-34); BUN/Creatinine Ratio 22 Ratio (12-20); Bilirubin,Total 0.4 mg/dL (0.3-1.2); Blood Urea Nitrogen 11 mg/dL (9-23); Calcium 9.6 mg/dL (8.3-10.6); Calcium (Corrected) 9.6 mg/dL (8.5-10.1); Carbon Dioxide 26.3 mMol/L (20.0-31.0); Chloride 98 mMol/L (98-107); Creatinine (Component) 0.5 mg/dL (0.6-1.3); Estimated Creatinine Clearance 139.3 mL/min (>60); Free T4 (Free Thyroxine) 1.52 ng/dL (0.89-1.76); Globulin 2.8 gm/dL (2.3-3.5); Glucose 189 mg/dL (74-106); Magnesium 1.4 mg/dL (1.6-2.6); Osmolality,Calculated 276 (275-295); Phosphorous 4.3 mg/dL (2.4-5.1); Potassium 3.5 mMol/L (3.4-5.1); Procalcitonin 0.04 ng/ml (0.0-0.49); Sodium 136 mMol/L (136-145); Thyroid Stimulating Hormone 0.52 uIU/mL (0.55-4.78); Total Protein 7.0 gm/dL (5.7-8.2); Troponin I < 0.002 ng/mL (0.0-0.045); eGFR > 60 See Note
[2025-04-20 11:14] LABS: Collection Type, Urine Clean Catch
[2025-04-20 11:19] LABS: D-Dimer 2130 ng/mL (<600)
--- NOTE | 2025-04-20 11:20 | XR_ITS ---
Examination: CTA chest with intravenous contrast 2-D reconstructions 3-D reconstructions, vascular Date and time of exam: April 20, 2025 at 1220 hours, comparison March 12, 2025 INDICATIONS: Tachycardia chest pain shortness of breath this week CTDI: vol (mGy) 13.5 DLP: (mGycm) 325 Technique: Multiple axial sections of the thorax have been obtained. 3 mm slice thickness, from below the hemidiaphragms to above the apices of the lungs. Mediastinal and lung density settings have been obtained. 2-D sagittal and coronal reconstructions. 3-D angiographic renderings, 3-D volume renderings, 3D post processing, vascular maximum intensity projections obtained. Contrast administered is 100 cc Isovue-370 intravenous. Low dose protocols were performed. One or more of the following dose reduction techniques were used; automated exposure control, adjustment of the mA and/or KV according to patient size, use of iterative reconstruction technique. Findings: Multiple small high periaortic and pretracheal lymph nodes No thoracic aortic aneurysm dilatation or dissection Pulmonary artery segments are not enlarged. No pulmonary artery filling defects At least 20 pulmonary nodules throughout the lungs, the largest in the right lung than millimeters 9 mm Interstitial disease throughout the lungs IMPRESSION: Again noted mediastinal lymphadenopathy stable compared with March 12, 2025 Negative for pulmonary artery emboli At least 20 pulmonary nodules throughout the lungs, 3-6 month follow-up CT chest recommended Abnormal interstitial disease throughout the lungs especially lung bases, differential would include pneumonia, atypical pulmonary edema
[2025-04-20] MEDS: cefTRIAXone 2 GM in SODIUM CHLORIDE 0.9% (Popper) 50 ML IV (11:50)
[2025-04-20 11:51] LABS: Bilirubin,Urine Negative (Negative); Blood,Urine Negative (Negative); Color,Urine Yellow (Lt Yel-Yel); Glucose, Urine Trace (Negative); Ketones,Urine 2+ (Negative); Leukocyte Esterase,Urine Positive (Negative); Nitrite,Urine Negative (Negative); PH,Urine 6.0 (5.0-7.0); Protein,Urine Trace (Neg - Trace); RBC,Urine 3 /hpf (0-3); Specific Gravity,Urine 1.019 (1.001-1.035); Squamous Epithelial Cell,Urine 4 /hpf (0-5); Urobilinogen,Urine 2.0 mg/dL (0.0-1.0); WBC,Urine 53 /hpf (0-5)
[2025-04-20 12:13] LABS: Clarity,Urine Hazy (Clear/Hazy); Culture Indicated,Urine Yes
[2025-04-20] MEDS: MORPHINE SULF INJ 4 MG/ML VIAL IVP (12:47)
[2025-04-20] MEDS: Magnesium Sulfate 4 GM Ivpb 4 GM/50 ML BAG IV (13:01)
[2025-04-20] MEDS: DOXYCYCLINE INJ 100 MG in SODIUM CHLORIDE 0.9% (POP) 100 ML IV (13:02)
[2025-04-20] MEDS: SODIUM CHLORIDE 0.9% 500 ML 500 ML 999 ML IV (14:30)
[2025-04-20] MEDS: MORPHINE SULF INJ 4 MG/ML VIAL 2 MG IVP (14:49)
[2025-04-20 15:49] VITALS: BP 146/95; PULSE 91; RESP 18; TEMP 36.6; O2SAT 96
[2025-04-20 17:18] VITALS: BP 127/82; PULSE 103; RESP 12; TEMP 36.9; O2SAT 94
--- NOTE | 2025-04-20 17:21 | PC.NURSE ---
PT DISCHARGED HOME VIA PRIVATE VEHICLE ACCOMPANIED BY ; PT AMB TO ED ENTRANCE. PORT NEEDLE ACCESS DC'D W/O DIFFICULTY; PT TOLERATED WELL. D/C INST GIVEN TO PT/ W/ UNDERSTANDING EXPRESSED.
== END 2025-04-20 17:18 | disposition home or self-care (01) ==
PROVIDERS: Emergency Provider Emergency Medicine
DX: E86.0 Dehydration (principal); N39.0 Urinary tract infection, site not specified; J18.9 Pneumonia, unspecified organism; R00.0 Tachycardia, unspecified; R59.0 Localized enlarged lymph nodes; E78.00 Pure hypercholesterolemia, unspecified
CPT/HCPCS: 36415; 71045; 71275; 80053; 81001; 83605; 83735; 84100; 84145; 84439; 84443; 84484; 85025; 85379; 85610; 85730; 87040; 87077; 87086; 87186; 87400; 87811; 93005; 96361; 96365; 96366; 96375; 96376; 99284; A4649; J0696; J2270; J2405; J3475; J3490; J7030; J7050; J7999; Q9967; A9270

== ENCOUNTER → 2025-04-25 | Outpatient (CLI) | payer MEDICAID, SELFPAY ==
[2025-04-24 16:59] LABS: HCG Qualitative,Urine Negative
--- NOTE | 2025-04-25 12:45 | XR_ITS ---
Examination: MRI of brain without intravenous contrast. MRI brain with intravenous contrast. Date and time of exam:April 25, 2025, 1324 hrs. Indications: Diagnosis malignant neoplasm of the endocervix, secondary malignant neoplasm of the brain, history brain tumor diagnosed 2 months ago, CT brain scan February 01, 2025 large soft tissue mass centered left occipital bone and left posterior foramen magnum 4.1 x 3.8 x 2.3 cm destroying the occipital bone and anterior left foramen magnum the left lateral foramen magnum Technique: Multiple axial and sagittal images of the brain to been obtained. Siemens high-resolution 1.52 Anna short bore scanner utilized. Sagittal sections, T1 weighted images, TR 500, TE 14, are performed. Axial sections proton-density and T2-weighted images have been obtained. Inversion recovery axial images, TR 9260, TE 111, TR 2500. Diffusion weighted images, axial sections, TR 4800, TE 128, B value 1000. Axial sections, ADC map, TR 4800, TE 128. Axial and coronal images were also obtained post 15 cc gadolinium administered intravenously. Findings:: Diffusion images demonstrate no focus of restricted diffusion FLAIR images demonstrate multiple scattered foci increased signal throughout the white matter Postcontrast images demonstrate osteolytic mass destroying the left occipital bone in the anterior margin of the foramen magnum with irregular rim-like enhancement The mass measures at least 4 x 4 by 2.8 cm and extends, soft tissue tumor mass outside and posterior on the left side to the upper cervical spine at the C1-C2 level, axial image 3, this soft tissue mass measuring at least 27 x 28 mm The enhancing tumor mass is impinging upon the left cerebellar hemisphere, sagittal image 14 and is producing mass effect on the fourth ventricle, with effacement Intracranial cerebellar or cerebral metastatic disease is not depicted Impression: Osteolytic 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
== END | disposition home or self-care (01) ==
PROVIDERS: PCP Nurse Practitioner; Referring Provider Internal Medicine Hematology & Oncology; Visit Provider Internal Medicine Hematology & Oncology
DX: R22.0 Localized swelling, mass and lump, head (principal); C53.0 Malignant neoplasm of endocervix; C79.31 Secondary malignant neoplasm of brain; Z32.00 Encounter for pregnancy test, result unknown
CPT/HCPCS: 70553; 81025; A9577

== ENCOUNTER 2025-04-28 08:55 | Emergency (ER) | payer MEDICAID, SELFPAY ==
[2025-04-28 09:09] VITALS: BP 141/98; PULSE 140; RESP 18; TEMP 37.3; O2SAT 98; BMI 30.2
--- NOTE | 2025-04-28 09:12 | PD.EDRME ---
Rapid Medical Screening Exam RME Arrival date/time: 04/28/25 08:55 39-year-old female with a history of hyperlipidemia, type 2 diabetes, cervical cancer that has metastasized to the brain presents to the emergency room with a chief complaint of a 10 out of 10 left-sided headache. Patient recently had an MRI done 3 days ago which shows a mass to the left side of her brain. I have greeted and performed a focused initial assessment of this patient. A comprehensive ED assessment and evaluation of the patient, analysis of all test results, and completion of the medical decision making process will be conducted by additional ED providers. Chief Complaint: Headache Vital signs: Vital Signs Temperature 99.1 F 04/28/25 09:09 Pulse Rate 140 H 04/28/25 09:09 Respiratory Rate 18 04/28/25 09:09 Blood Pressure 141/98 H 04/28/25 09:09 Pulse Oximetry (%) 98 04/28/25 09:09 Oxygen Delivery Method Room Air 04/28/25 09:09 Vital signs reviewed by provider: Yes
--- NOTE | 2025-04-28 09:13 | EKG_ITS ---
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
--- NOTE | 2025-04-28 10:00 | PC.NURSE ---
PORT TO RIGHT UPPER CHEST ACCESSED PER DR ORDER. PORT LINE PULLS BACK BLOOD AND FLUSHES WITH EASE.
[2025-04-28 10:08] LABS: Collection Type, Urine Clean Catch
[2025-04-28 10:25] LABS: Bacteria,Urine Rare; Bilirubin,Urine Negative (Negative); Blood,Urine Negative (Negative); Color,Urine Yellow (Lt Yel-Yel); Glucose, Urine Trace (Negative); Ketones,Urine 3+ (Negative); Leukocyte Esterase,Urine Positive (Negative); Nitrite,Urine Negative (Negative); PH,Urine 6.0 (5.0-7.0); Protein,Urine 1+ (Neg - Trace); RBC,Urine 8 /hpf (0-3); Specific Gravity,Urine 1.027 (1.001-1.035); Squamous Epithelial Cell,Urine 4 /hpf (0-5); Transitional Epi Cells,Urine < 1 /hpf (0-5); Urobilinogen,Urine Negative mg/dL (0.0-1.0); WBC,Urine 24 /hpf (0-5)
[2025-04-28 10:28] LABS: Clarity,Urine Cloudy (Clear/Hazy); Culture Indicated,Urine Yes
[2025-04-28 10:39] LABS: Basophils # (Auto) 0.0 Thou/mm3 (0.0-0.2); Basophils % (Auto) 0 % (0-2.5); Eosinophils # (Auto) 0.0 Thou/mm3 (0.0-0.5); Eosinophils % (Auto) 0 % (0-10); Hematocrit 35.5 % (36.0-46.0); Hemoglobin 12.6 g/dL (12.0-16.0); Immature Granulocytes Auto 0.09 Thou/mm3 (0.00-0.00); Lymphocytes # (Auto) 0.8 Thou/mm3 (1.0-4.8); Lymphocytes % (Auto) 8 % (10-50); Mean Corpuscular HGB Conc 35.5 g/dl (31.0-37.0); Mean Corpuscular Hemoglobin 30.0 pg (25.0-35.0); Mean Corpuscular Volume 85 fL (80-100); Monocytes # (Auto) 0.8 Thou/mm3 (0.0-0.8); Monocytes % (Auto) 8 % (0-12); Neutrophils # (Auto) 7.8 Thou/mm3 (1.8-7.7); Neutrophils % (Auto) 82 % (37-80); Nucleated Red Blood Cell # 0.00 Thou/mm3 (0.00-0.00); Nucleated Red Blood Cell % 0 /100 WBC (0); Platelet Count 448 Thou/mm3 (140-440); RDW Standard Deviation 37.2 fL (36.4-46.3); Red Blood Count 4.20 Miln/mm3 (4.00-5.20); White Blood Count 9.5 Thou/mm3 (3.6-11.0)
[2025-04-28 11:04] LABS: INR 1.1 (0.9-1.3); Partial Thromboplastin Time 28.7 Seconds (22.0-36.0); Prothrombin Time 12.3 Seconds (9.0-12.2)
[2025-04-28 11:09] LABS: B-Type Natriuretic Peptide < 20 pg/mL (0-100)
[2025-04-28 11:10] LABS: Alanine Aminotransferase < 7 U/L (10-49); Albumin, Serum 4.4 gm/dL (3.5-5.0); Albumin/Globulin Ratio 1.6 (1.2-2.2); Alkaline Phosphatase 88 U/L (46-116); Anion Gap 13 (7-16); Aspartate Amino Transferase 11 U/L (0-34); BUN/Creatinine Ratio 18 Ratio (12-20); Bilirubin,Total 0.4 mg/dL (0.3-1.2); Blood Urea Nitrogen 11 mg/dL (9-23); Calcium 10.1 mg/dL (8.3-10.6); Calcium (Corrected) 10.1 mg/dL (8.5-10.1); Carbon Dioxide 26.2 mMol/L (20.0-31.0); Chloride 95 mMol/L (98-107); Creatinine (Component) 0.6 mg/dL (0.6-1.3); Estimated Creatinine Clearance 121.6 mL/min (>60); Globulin 2.8 gm/dL (2.3-3.5); Glucose 184 mg/dL (74-106); Magnesium 1.4 mg/dL (1.6-2.6); Osmolality,Calculated 272 (275-295); Potassium 3.9 mMol/L (3.4-5.1); Sodium 134 mMol/L (136-145); Total Protein 7.2 gm/dL (5.7-8.2); Troponin I < 0.002 ng/mL (0.0-0.045); eGFR > 60 See Note
--- NOTE | 2025-04-28 11:18 | XR_ITS ---
Examination: CT brain head without contrast. CT brain head with intravenous contrast 2-D sagittal reconstructions. 2-D coronal reconstructions. Date and time of exam:April 28, 2025, 1421 hours INDICATIONS: Headaches beginning several weeks ago, diagnosis cervical cancer, large soft tissue mass destroying the occipital bone foramen magnum and extending into the soft tissue of the posterior neck noticed on the CT brain head February 01, 2025 and the brain MRI and 04/25/2025 CTDI: vol (mGy): 103.4 DLP: (mGycm):2068 Technique: Axial sections of the brain have been obtained. 5 mm slice thickness images have been obtained. Examination pre and post intravenous administration 60 cc Isovue-370 Low dose protocols were performed. One or more of the following dose reduction techniques were used; automated exposure control, adjustment of the mA and/or KV according to patient size, use of iterative reconstruction technique. Findings: Again noted large soft tissue mass measuring at least 4.8 x 4.4 x 3.6 cm destroying the posterior occipital bone posterior foramen magnum extending into the soft tissue of the posterior neck, better depicted on the brain MRI 04/25/2025 The ventricles are not enlarged No acute hemorrhage No mass effect 1 the ventricular system Postcontrast images demonstrate no abnormal enhancing cerebellar or cerebral lesions IMPRESSION: Again noted large soft tissue mass 4.8 x 4.4 x 3.6 cm destroying the posterior occipital bone posterior foramen magnum extending into the soft tissue of the posterior neck, better depicted on the brain MRI 04/25/2025 No abnormal enhancing cerebellar or cerebral lesions
--- NOTE | 2025-04-28 11:19 | PD.EDHA ---
ED Headache RME/HPI General Chief Complaint: Headache Stated Complaint: HEADACHE, 05/15 Time Seen by Provider: 04/28/25 09:46 Arrival date/time: 04/28/25 08:55 Limitations: no limitations RME / HPI RME / HPI Narrative: 04/28/25 08:55 39-year-old female with a history of hyperlipidemia, type 2 diabetes, cervical cancer that has metastasized to the brain presents to the emergency room with a chief complaint of a 10 out of 10 left-sided headache. Patient recently had an MRI done 3 days ago which shows a mass to the left side of her brain. I have greeted and performed a focused initial assessment of this patient. A comprehensive ED assessment and evaluation of the patient, analysis of all test results, and completion of the medical decision making process will be conducted by additional ED providers. DR. WOLFE MAIN ED EVALUATION 39 year old female with history of cervical cancer with metastasis to lungs and brain, s/p chemoradiation, s/p brachytherapy at [facility], diabetes, hyperlipidemia presents to the ED for evaluation of headache today. Pain described as dull that is located most to the left side, rating 10/10 in severity. Reports headache today is worse than previous headaches and not improved with Hope 10 at home. No other associated symptoms reported. Denies changes in vision, loss of sensation/movements, or weakness. Patient mentioned she received a brain MRI 3 days ago and has an appointment scheduled with Dr. Richter to discuss results on 05/07/2025. Denies any recent illness, fevers, chills, chest pain, cough, shortness of breath, abdominal pain, or urinary symptoms. Related Data Home Medications ?Medication ?Instructions ?Recorded ?Confirmed metformin 1,000 mg tablet 1,000 mg PO BID 01/31/22 04/20/25 atorvastatin 20 mg tablet 20 mg PO QDAY 11/29/23 04/20/25 tirzepatide 5 mg/0.5 mL 5 mg subcut QWEEK 11/29/23 04/20/25 subcutaneous pen injector (Kary) Previous Rx's ?Medication ?Instructions ?Recorded cefpodoxime 200 mg tablet 200 mg PO BID UTI 10 days #20 tabs 04/20/25 Allergies Allergy/AdvReac Type Severity Reaction Status Date / Time bevacizumab Allergy Severe Palpitation Verified 04/28/25 08:57 s Review of Systems Review of Systems Systems Reviewed: All systems reviewed, normal except as documented Past Medical History Past Medical History CARDIAC: Positive Hypercholesterolemia REPRODUCTIVE: Positive Previous Pregnancies ENDOCRINE: Positive Endocrine Disorders, Diabetes Mellitus Type 2 and Hypothyroidism HEMATOLOGIC: Positive Anemia OTHER HISTORY: Positive Hospitalization, Chicken Pox, Cancer and Cervical Cancer Family History FAMILY HISTORY: Positive Family Cardiac Disorders and Family Cancer Surgical History SURGICAL: Positive Section Social History SMOKING STATUS: Never smoker ED Exam General Limitations: Present no limitations General appearance: Present alert, in no apparent distress and other (Pale, alopecia noted ) Head Head exam: Present atraumatic, normocephalic and other (Patient with significant tenderness to palpation at the left occiput, and diffuse hair loss) Eye Eye exam: Present normal appearance, PERRL and EOMI ENT ENT exam: Present normal exam, normal oropharynx and mucous membranes moist Neck Neck exam: Present normal inspection, full ROM and trachea midline Chest Chest inspection: Present normal inspection and symmetric chest wall rise Respiratory Respiratory exam: Present normal lung sounds bilaterally; Absent respiratory distress, wheezes or stridor Cardiovascular Cardiovascular exam: Present regular rate, normal rhythm and normal heart sounds Abdominal Exam Abdominal exam: Present soft; Absent distention, tenderness, guarding, rebound or rigidity Extremities Exam Extremities exam: Present normal inspection and full ROM Back Exam Back exam: Present normal inspection and full ROM Neurological Exam Neurological exam: Present alert, oriented X3, CN II-XII intact and other (strong in all extremities sensation intact, no focal neurodeficits) Psychiatric Psychiatric exam: Present normal affect and normal mood Skin Skin exam: Present warm, dry, intact and normal color Course Quality Measures none Orders Category Date Time Status CT Screening NOW Care 04/28/25 11:18 Active EKG (ED ONLY) *Do not use* NOW Care 04/28/25 09:13 Completed Referral - Car Inspector Stat Cons 04/28/25 15:[address] cervical spine wo/w con Stat Exams 04/28/25 11:[address] head/brain wo/w con Stat Exams 04/28/25 11:18 Completed EKG (ED Only) Stat Exams 04/28/25 09:13 Draft B-Type Natriuretic Peptide Stat Lab 04/28/25 10:27 Completed CBC Stat Lab 04/28/25 10:27 Completed Comprehensive Metabolic Panel Stat Lab 04/28/25 10:27 Completed HCG Qualitative,Urine Stat Lab 04/28/25 09:30 Completed Magnesium Stat Lab 04/28/25 10:27 Completed Partial Thromboplastin Time Stat Lab 04/28/25 10:27 Completed Prothrombin Time with INR Stat Lab 04/28/25 10:27 Completed Troponin I Stat Lab 04/28/25 10:27 Completed Urinalysis, C/S if Indicated Stat Lab 04/28/25 09:30 Completed Urine Culture Stat Lab 04/28/25 09:30 Received Dexamethasone Inj [Decadron Inj] Med 04/28/25 12:30 Discontinued 8 mg IV X1 ONE Dexamethasone Inj [Decadron Inj] 8 mg Med 04/28/25 11:55 Discontinued Sodium Chloride 0.9% [Ns] 100 ml IV X1 HYDROmorphone INJ [Dilaudid Inj] Med 04/28/25 14:34 Discontinued 0.5 mg IVP X1 ONE HYDROmorphone INJ [Dilaudid Inj] Med 04/28/25 16:08 Discontinued 0.5 mg IVP X1 ONE HYDROmorphone INJ [Dilaudid Inj] Med 04/28/25 17:48 Discontinued 0.5 mg IVP X1 ONE Magnesium Sulfate 1 gm Ivpb [Magnesium Sulfate Ivpb] Med 04/28/25 15:52 Discontinued 1 gm in 100 ml IV X1 Morphine* Inj Med 04/28/25 11:28 Discontinued 4 mg IVP STAT STA cefTRIAXone/D5w 1gm IV premix [Rocephin/D5w 1gm IV Med 04/28/25 15:52 Discontinued premix] 1 gm in 50 ml IV STAT Vital Signs Vital signs: Vital Signs Temperature 99.1 F 04/28/25 09:09 Pulse Rate 140 H 04/28/25 09:09 Respiratory Rate 18 04/28/25 09:09 Blood Pressure 141/98 H 04/28/25 09:09 Pulse Oximetry (%) 98 04/28/25 09:09 Oxygen Delivery Method Room Air 04/28/25 09:09 Pulse ox is 98% on room air which is adequate. Headache MDM Narrative MDM Narrative:: Patient is a 39-year-old female with medical history notable for cervical cancer status post chemotherapy brachytherapy and radiation, with metastases to the lungs and the brain that in the emergency department with the worst headache of her life. Patient follows with Dr. Hanks. vital signs and exam as listed. Concern for intracranial hemorrhage, cerebral edema, tension headache among others. Patient without any focal neurodeficits, patient is GCS 15. Provided patient with medication for symptom relief, prior provider ordered labs. I ordered a CT scan of her brain. Of note patient had an MRI performed on April 25 of this year. Shows osteolytic likely metastatic mass distorting the left occipital bone anterior and left foramen magnum with irregular soft tissue ringlike enhancement. The main tumor mass measures 4 x 4 x 2.8 cm. The soft tissue mass extends outside the posterior upper cervical spine on the left side at the C1-C2 level measuring at least 27 x 28 mm. Given this finding on this MRI from a few days ago, I did discuss with patient's oncologist Dr. Hanks recommends we provide patient with steroids, and transfer for neurosurgery. Recommends [facility] or [place] given that she is able to see the patient at [facility]. Labs without any acute significant hematologic abnormality. No significant electrolyte abnormality. Patient magnesium 1.4, will replete in the emergency department. Troponin elevated, BNP normal. Urinalysis positive for leuk esterase, 8 red blood cells 24 white blood cells, 4 squames, rare bacteria patient is not . Will treat for urinary tract infection. Patient does not have any allergies to antibiotics. CTs of the brain and spine again redemonstrated the soft tissue mass measuring at least 4.8 x 4.4 x 3.6 and a meters distorting the posterior occipital lobe posterior foramen magnum extending into the soft tissue the posterior neck. No evidence of hemorrhage. No evidence of mass effect. No abnormal enhancing cerebellar or cerebral lesions. Given findings on imaging, history and exam, initiate transfer for facility with neurosurgery and oncology capabilities. 1608: I spoke with transfer nurse at [facility]. Discussed patients PMHx, HPI, ED course, exam findings, labs, and radiology results. States she will present the case to their team. Patient is required multiple doses of medication for pain here in the emergency department. I updated patient with regards to initiation and transfer. Patient states that at 1 point she was in the care of [facility] for management of her brain metastases. She does not know the name of the neurosurgeon. I updated the transfer center. Patient signed out to oncoming provider Dr. Pinon pending callback for transfer for neurosurgery. Patient data External records reviewed:: [facility] previous records (I reviewed ED visit on 04/20/2025 ) Clinical information provided by:: patient Social determinants that could affect healthcare access:: none Patient has the following chronic illnesses:: cervical cancer with metastasis to lungs and brain, s/p chemoradiation, s/p brachytherapy at [facility], diabetes, hyperlipidemia How is presenting disease/condition affected by chronic disease/condition?: exacerbated by Evaluation data The following diagnostics were reviewed and interpreted by me:: lab results, radiology exam(s) and EKG tracing(s) Lab and/or radiology exams considered but not ordered:: None Interpretation Summary: See MDM Medications / Prescriptions Medications or Prescriptions considered but not ordered:: None Medication administrations:: Medication Administration History Discontinued Medications Dexamethasone Sodium Phosphate (Dexamethasone Sod Phos Inj 10 Mg/Ml Vial) 8 mg IV X1 ONE Stop: 04/28/25 12:31 Last Admin: 04/28/25 12:46 Dose: 8 mg Documented By: MAVERICK Hydromorphone HCl (Hydromorphone Inj 2 Mg/Ml Vial) 0.5 mg IVP X1 ONE Stop: 04/28/25 14:35 Last Admin: 04/28/25 15:08 Dose: 0.5 mg Documented By: MAVERICK Hydromorphone HCl (Hydromorphone Inj 2 Mg/Ml Vial) 0.5 mg IVP X1 ONE Stop: 04/28/25 16:09 Last Admin: 04/28/25 16:23 Dose: Not Given Documented By: MAVERICK Non-Admin Reason: Patient Refused Hydromorphone HCl (Hydromorphone Inj 2 Mg/Ml Vial) 0.5 mg IVP X1 ONE Stop: 04/28/25 17:49 Dexamethasone Sodium Phosphate (8 mg/ Sodium Chloride) 100.8 mls @ 100.8 mls/hr IV X1 ONE Stop: 04/28/25 11:56 Last Admin: 04/28/25 12:28 Dose: Not Given Documented By: MAVERICK Non-Admin Reason: Duplicate Medication on eMAR Magnesium Sulfate/Dextrose (Magnesium Sulfate Ivpb) 1 gm in 100 mls @ 100 mls/hr IV X1 ONE Stop: 04/28/25 16:51 Last Infusion: 04/28/25 17:28 Dose: Infused Documented By: Admin: 04/28/25 16:23 Dose: 100 mls/hr Documented By: MAVERICK Ceftriaxone Sodium/Dextrose (Rocephin/D5w 1gm Iv Premix) 1 gm in 50 mls @ 100 mls/hr IV STAT STA Stop: 04/28/25 16:21 Last Infusion: 04/28/25 16:55 Dose: Infused Documented By: Admin: 04/28/25 16:23 Dose: 100 mls/hr Documented By: MAVERICK Morphine Sulfate (Morphine Sulf Inj 4 Mg/Ml Vial) 4 mg IVP STAT STA Stop: 04/28/25 11:29 Last Admin: 04/28/25 11:33 Dose: 4 mg Documented By: MAVERICK See above Consultations Consultation(s) initiated? (list below): Yes Consultation #1 (Physician, Specialty, Details): I spoke with patients oncologist Dr. Ramirez. Discussed patients PMHx, HPI, ED course, exam findings, labs, and radiology results. She recommends starting the patient on steroids and transferring for neurosurgery. Time: 11:44 Diagnosis Differential diagnosis headache: migraine, subarachnoid hemorrhage, headache and other (Cancer ) Most likely diagnosis given after review of the tests above:: Metastatic cancer to the brain Admission Indicated Admission indicated?: not indicated Explain why admission is indicated or not indicated:: Transfer Admission Request Was there a request for admission?: No Disposition Plan Disposition Plan: Transfer Critical Care Time Critical Care Time Critical Care Time: Yes Total Critical Care Time (min.): 45 Attestation: I spent 45 minutes of critical care time with this patient not including reportable procedures. There was an acute impairment of an organ system with a high probability of imminent or life threatening deterioration in the patient's condition. Interventions and changes required in the course of therapy are located in the chart. Time involved was spent in direct patient care, reviewing ancillary data, old records, consulting with decision makers, EMS, other doctors, giving orders and documenting. Discharge Plan Prescriptions/Referrals Prescriptions/Med Rec: No Action metformin 1,000 mg Tablet 1,000 mg PO BID atorvastatin 20 mg Tablet 20 mg PO QDAY Mounjaro 5 mg/0.5 mL Pen Injector 5 mg SUBCUT QWEEK cefpodoxime 200 mg tablet 200 mg PO BID 10 Days Qty: 20 0RF Rx Instructions: must administer with a meal/food Referrals: No Primary/Family,Physician [Primary Care Provider] - In 1 week Problem List Clinical Impression: History of malignant neoplasm metastatic to brain, Cervical cancer Patient/Caregiver Discharge Instructions Print Language: Algerian
[2025-04-28] MEDS: MORPHINE SULF INJ 4 MG/ML VIAL IVP (11:33)
--- NOTE | 2025-04-28 11:37 | XR_ITS ---
Examination: CT cervical spine without contrast CT cervical spine with intravenous contrast 2-D sagittal reconstructions 2-D coronal reconstructions 3-D reconstructions. Exam date and time:April 28, 2025 1405 hours INDICATIONS: Osteolytic lesion destroying the left occipital bone anterior left foramen magnum extending outside the upper posterior cervical spine on the left side at the C1-C2 level measuring at least 27 x 20 mm on MR brain 04/25/2025, diagnosis malignant neoplasm uterus 2023, pain in the back of the head and neck CTDI:vol (mGy) 33.4 DLP: (mGycm) 748 Technique: Multiple 2 mm axial sections of the cervical spine have been obtained, pre and post 60 cc Isovue-370 The coronal and sagittal reconstructions have been obtained. 3-D reconstructions have been obtained. Low dose protocols were performed. One or more of the following dose reduction techniques were used; automated exposure control, adjustment of the mA and/or KV according to patient size, use of iterative reconstruction technique. Findings: Soft tissue poorly enhancing tumor mass, 4.8 x 4.4 x 3.6 cm destroying the posterior occipital bone of both right and left sides, the posterior foramen magnum especially on the left side and extending posteriorly into the soft tissue of the neck No vertebral body compression fracture The remaining is C1 lateral masses of C1 intact The pedicles and laminae or caudad vertebral bodies intact with no epidural soft tissue mass in the cervical spine IMPRESSION: 4.8 x 4.4 x 3.6 cm soft tissue mass destroying posterior occipital bone on the right and left sides, the posterior foramen magnum especially on the left side extending into the soft tissue the posterior neck MRI cervical spine pre and postcontrast would BE strongly preferable in assessing for cervical cord impingement
[2025-04-28 11:39] VITALS: BP 137/104; PULSE 103; RESP 16; O2SAT 95
[2025-04-28 12:30] VITALS: BP 133/95; PULSE 107; RESP 18; TEMP 37.2; O2SAT 98
[2025-04-28 12:43] LABS: HCG Qualitative,Urine Negative
[2025-04-28] MEDS: DEXAMETHASONE SOD PHOS INJ 10 MG/ML VIAL 8 MG IV (12:46)
[2025-04-28] MEDS: HYDROmorphone INJ 2 MG/ML VIAL 0.5 MG IVP ×2 (15:08→18:17)
[2025-04-28 15:27] VITALS: BP 120/98; PULSE 105; RESP 17; TEMP 37.1; O2SAT 97
--- NOTE | 2025-04-28 15:46 | PC.CC ---
Addendum entered by Ema Decker RN 04/28/25 18:58: Per Dr. He [facility] declined to take patient, [facility] states patient is inoperable and either can be admitted at [place] or discharged home Addendum entered by Ema Decker RN 04/28/25 18:31: Alaina called back from [facility] and transferred to ER to speak with doctor again Addendum entered by Ema Decker RN 04/28/25 16:04: Alaina from [facility] called back and transferred to ER to speak to Dr. Vang Addendum entered by Ema Decker RN 04/28/25 16:00: CD made now Original Note: 0090-Made aware by Dr. Vang that patient needs transfer for neurosurgery/oncology for dx: mass 4X4X2.3 sm extending into the C1-C2 destroying the skull. Patient being treated by Dr. Hanks that has privillages at [facility] and wants patient transferred. Patient is neurologically intact, but in pain. 6780- Spoke to Alaina at [facility] for possible transfer chart faxed, images pushed, will wait for call back
[2025-04-28] MEDS: cefTRIAXone/D5w 1gm IV premix 1 GM/50 ML BAG IV (16:23)
--- NOTE | 2025-04-28 18:21 | PD.EDADDENDU ---
Emergency Room Addendum <Yuki Gilliland - Last Filed: 04/28/25 19:47> Addendum Narrative: 1800: Care assumed from Dr. Vang, the previous shift emergency physician. Past medical, surgical, social and family history reviewed. Vitals and home medications reviewed. Results and treatment plan discussed. I will assume the care of the patient at this time and will follow the patient. Please refer to the emergency department record for history and examination from initial visit. <Reid T DO Neri - Last Filed: 04/28/25 19:52> Addendum Narrative: 1800: Care assumed from Dr. Vang, the previous shift emergency physician. Past medical, surgical, social and family history reviewed. Vitals and home medications reviewed. Results and treatment plan discussed. I will assume the care of the patient at this time and will follow the patient. Please refer to the emergency department record for history and examination from initial visit. I had a discussion with [facility] hospice spiritual care coordinator who spoke with their neurosurgical department representing Dr. Shields who is seeing the patient in the past. They stated that after review of the MRI of the brain done [address] days [address] and the [address] of the brain done today that no neurosurgical intervention needs to be done at this time. They will arrange for the patient to have an appointment with them later this week. I went to evaluate the patient and the patient is in no acute distress. Heart rate is in the 120s however the patient states that her heart rate has always been high since the chemotherapy and she feels very anxious. Patient states that her pain is controlled at this time. She has taken [place] for pain. I will send in to the pharmacy Dilaudid to better control her pain. She was notified that there is no need for surgical intervention at this time. Her oncologist is Dr. Richter. She does have follow-up.
[2025-04-28 18:34] VITALS: BP 124/82; PULSE 108; RESP 17; TEMP 36.8; O2SAT 95
[2025-04-28 19:15] VITALS: BP 131/90; PULSE 121; RESP 19; O2SAT 96
[2025-04-28] MEDS: HYDROMORPHONE HCL 2 MG TABLET PO (20:08)
[2025-04-28] MEDS: HEPARIN SOD LOCK SYR 100 UNIT/ML 500 UNIT IV (20:09)
== END 2025-04-28 20:15 | disposition home or self-care (01) ==
PROVIDERS: Nurse Practitioner Family; Emergency Provider Emergency Medicine
DX: C79.31 Secondary malignant neoplasm of brain (principal); Z85.41 Personal history of malignant neoplasm of cervix uteri; Z92.21 Personal history of antineoplastic chemotherapy; Z92.3 Personal history of irradiation; C78.00 Secondary malignant neoplasm of unspecified lung; E11.9 Type 2 diabetes mellitus without complications; E78.5 Hyperlipidemia, unspecified
CPT/HCPCS: 36415; 70470; 72127; 80053; 81001; 81025; 83735; 83880; 84484; 85025; 85610; 85730; 87086; 93005; 96365; 96375; 96376; 99284; A4649; J0696; J1100; J1171; J1642; J2270; J3475; Q9967; A9270

== ENCOUNTER 2025-04-30 08:16 | Outpatient (RCR) | payer MEDICAID, SELFPAY ==
[2025-04-17 10:24] LABS: Collection Type, Urine Voided; RBC,Urine 0 /hpf (0-3)
[2025-04-17 10:35] LABS: Basophils # (Auto) 0.0 Thou/mm3 (0.0-0.2); Basophils % (Auto) 0 % (0-2.5); Eosinophils # (Auto) 0.0 Thou/mm3 (0.0-0.5); Eosinophils % (Auto) 0 % (0-10); Hematocrit 35.4 % (36.0-46.0); Hemoglobin 12.6 g/dL (12.0-16.0); Immature Granulocytes Auto 0.07 Thou/mm3 (0.00-0.00); Lymphocytes # (Auto) 1.0 Thou/mm3 (1.0-4.8); Lymphocytes % (Auto) 11 % (10-50); Mean Corpuscular HGB Conc 35.6 g/dl (31.0-37.0); Mean Corpuscular Hemoglobin 30.7 pg (25.0-35.0); Mean Corpuscular Volume 86 fL (80-100); Monocytes # (Auto) 1.4 Thou/mm3 (0.0-0.8); Monocytes % (Auto) 15 % (0-12); Neutrophils # (Auto) 6.8 Thou/mm3 (1.8-7.7); Neutrophils % (Auto) 73 % (37-80); Nucleated Red Blood Cell # 0.00 Thou/mm3 (0.00-0.00); Nucleated Red Blood Cell % 0 /100 WBC (0); Platelet Count 324 Thou/mm3 (140-440); RDW Standard Deviation 39.4 fL (36.4-46.3); Red Blood Count 4.11 Miln/mm3 (4.00-5.20); White Blood Count 9.3 Thou/mm3 (3.6-11.0)
[2025-04-17 10:43] LABS: Bacteria,Urine Rare; Bilirubin,Urine Negative (Negative); Blood,Urine Negative (Negative); Clarity,Urine Turbid (Clear/Hazy); Color,Urine Yellow (Lt Yel-Yel); Glucose, Urine Trace (Negative); Ketones,Urine 2+ (Negative); Leukocyte Esterase,Urine Positive (Negative); Nitrite,Urine Negative (Negative); PH,Urine 6.0 (5.0-7.0); Protein,Urine 1+ (Neg - Trace); Specific Gravity,Urine 1.023 (1.001-1.035); Squamous Epithelial Cell,Urine 9 /hpf (0-5); Urobilinogen,Urine Negative mg/dL (0.0-1.0); WBC,Urine 157 /hpf (0-5)
[2025-04-17 11:01] LABS: HCG,Qualitative Serum Negative
[2025-04-17 11:10] LABS: Alanine Aminotransferase < 7 U/L (10-49); Albumin, Serum 4.2 gm/dL (3.5-5.0); Albumin/Globulin Ratio 1.4 (1.2-2.2); Alkaline Phosphatase 104 U/L (46-116); Anion Gap 16 (7-16); Aspartate Amino Transferase 12 U/L (0-34); BUN/Creatinine Ratio 12 Ratio (12-20); Bilirubin,Total 0.6 mg/dL (0.3-1.2); Blood Urea Nitrogen 7 mg/dL (9-23); Calcium 9.7 mg/dL (8.3-10.6); Calcium (Corrected) 9.7 mg/dL (8.5-10.1); Carbon Dioxide 23.4 mMol/L (20.0-31.0); Chloride 95 mMol/L (98-107); Creatinine (Component) 0.6 mg/dL (0.6-1.3); Free T4 (Free Thyroxine) 1.48 ng/dL (0.89-1.76); Globulin 2.9 gm/dL (2.3-3.5); Glucose 158 mg/dL (74-106); Osmolality,Calculated 269 (275-295); Potassium 3.4 mMol/L (3.4-5.1); Sodium 134 mMol/L (136-145); Thyroid Stimulating Hormone 0.47 uIU/mL (0.55-4.78); Total Protein 7.1 gm/dL (5.7-8.2); eGFR > 60 See Note
[2025-04-17 11:13] LABS: CA 125 30.0 U/mL (<30.2); Carcinoembryonic Antigen 33.8 ng/mL (0.0-5.0)
== END 2025-05-05 23:59 | disposition home or self-care (01) ==
LOC: SCTC 08:16
PROVIDERS: PCP Nurse Practitioner; Referring Provider Nurse Practitioner; Visit Provider Internal Medicine Hematology & Oncology
DX: C53.0 Malignant neoplasm of endocervix (principal); C79.31 Secondary malignant neoplasm of brain; C79.51 Secondary malignant neoplasm of bone; Z92.3 Personal history of irradiation
CPT/HCPCS: 36591; 80053; 81001; 82378; 84439; 84443; 84703; 85025; 86304; 96360; 96361; 99213; A4216; J1100; J1453; J1642; J2405; J3490; J7030; J7050; J9045; J9267; J9271; Q5126; G0463; J7040

== ENCOUNTER 2025-05-11 21:12 | Emergency (ER) | payer MEDICAID, SELFPAY ==
[2025-05-11 21:15] VITALS: BMI 30.2
[2025-05-11 21:31] VITALS: BP 119/86; PULSE 93; RESP 16; TEMP 36.7; O2SAT 96
--- NOTE | 2025-05-11 21:46 | PD.EDRME ---
Rapid Medical Screening Exam RME Arrival date/time: 05/11/25 21:12 Chief Complaint: Extremity Injury, Lower Time Seen by Provider: 05/11/25 21:36 Vital signs: Vital Signs Temperature 98.1 F 05/11/25 21:31 Pulse Rate 93 05/11/25 21:31 Respiratory Rate 16 05/11/25 21:31 Blood Pressure 119/86 H 05/11/25 21:31 Pulse Oximetry (%) 96 05/11/25 21:31 Oxygen Delivery Method Room Air 05/11/25 21:31 RME Narrative: Patient reports BLE numbness/weakness and urinary incontinence since yesterday. History of metastatic cancer to brain, now spread to spine. Currently on chemo, next treatment is .
--- NOTE | 2025-05-11 22:48 | PC.NURSE ---
sECURITY SAW PT LEAVING WITH FAMILY, ELOPED
--- NOTE | 2025-05-12 01:29 | PD.EDADDENDU ---
Emergency Room Addendum Addendum Narrative: When I looked for the patient to start my evaluation, I was told the patient eloped. Neville Richter MD
== END 2025-05-11 22:49 | disposition left against medical advice (07) ==
PROVIDERS: Emergency Provider Emergency Medicine
DX: Z53.21 Procedure and treatment not carried out due to patient leaving prior to being seen by health care provider (principal)
CPT/HCPCS: 80053; 81025; 85025; 99283

== ENCOUNTER 2025-05-20 14:47 | Outpatient (RCR) | payer MEDICAID, SELFPAY ==
--- NOTE | 2025-05-11 15:35 | CTCSNOTE_ITS ---
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 (C) CT slices included brain (D) VMAT Will be needed for maximum sparing of adjacent normal critical structures. (E) Patient tolerated the simulation well and left the room in good condition. Electronically signed by: Usman Richter MD, ZIGGY 05/11/2025 3:32 PM
--- NOTE | 2025-05-14 08:20 | CTCTXPLN_ITS ---
[facility] [address] [place], [place] [address] Physician Clinical Treatment Planning Note Date of Service: 05/14/2025 Name: BERNABE VIRKDANIELA Al.: 1985 The patient has agreed to proceed with Radiation therapy. Tests and supporting medical records were interpreted to assist in defining the tumor location and extent of disease. Further imaging will be necessary to contour and delineate the volume to which the XRT will be provided. A. Treatment Intent: Palliative B. Modality: 6 MV C. Requested Technique: SBRT D. Treatment Site: T9 E. Critical structures to be contoured on plan: F. In order to accomplish this plan, I am ordering/Prescribing the followin. Simulations (s) will be performed to accomplish a reproducible treatment position, to determine optimal treatment portals/beam arrangements, to design beam modifying devices and verify treatment portals on patient prior to the commencement of Radiation Therapy. T9 2. Devices; for immobilization and beam shaping: Vac-Marino 3. CT Guidance for placement of XRT dawson Scan area: 4. Portal images Frequency: 5. Invivo transit dose measurement once per week on all VMAT patients. 6. Special Physics Consult Requested for: 7. Other requests: Special procedure getting chemo and radiation G. Dose Objectives: Palliative Electronically signed by: Usman Richter M.D. 05/14/2025 8:18 AM
--- NOTE | 2025-05-14 08:25 | CTCTXPLNST_ITS ---
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 Pt Treatment Intent: curative palliative other: Stage: Procedure CPT # Ordered Spec. Procedure 40700 1 Aguilar Complex (set-up) 37204 T 7? T 11 (T9) 1 Aguilar Simple 33295 IMRT Plan 84324 1 MLC Devices VMAT 24520 6 Aguilar 3 D 72936 TRTMT dev Complex 52321 vaklok 1 TRTMT dev simple 54645 Basic Min 28258 7 Special Dosimetry 17257 Spec Physics 69175 1 Port Films 32006 SRS Cranial/1FX 99032 SBR 5 FX or Less /ex: 5 = 5 fx 23625 3000 3 IMRT Simple 96568 IMRT Complex 95105 IGRT 43010 3 Rad del eParachute 6- 98483 Rad del eParachute 11 36158 Cont Med Physics 53064 2 Treatment Planning 27502 1 Weekly Evaluation 88554 3 Rad del com 20 mev 38379 Special Port Plan 98943 TRTMT dev inter 95418 Isodose Complex 68571 Isodose simple 58377 Resp Motion Mgmt Simulation 20153 Placement of Fiducial Markers 03659 Electronically Signed By: Usman Richter MD, DABR 05/14/2025 8:23 AM
[2025-05-14 11:03] LABS: Basophils # (Auto) 0.0 Thou/mm3 (0.0-0.2); Basophils % (Auto) 0 % (0-2.5); Eosinophils # (Auto) 0.1 Thou/mm3 (0.0-0.5); Eosinophils % (Auto) 0 % (0-10); Hematocrit 33.0 % (36.0-46.0); Hemoglobin 11.6 g/dL (12.0-16.0); Immature Granulocytes Auto 0.12 Thou/mm3 (0.00-0.00); Lymphocytes # (Auto) 0.7 Thou/mm3 (1.0-4.8); Lymphocytes % (Auto) 6 % (10-50); Mean Corpuscular HGB Conc 35.2 g/dl (31.0-37.0); Mean Corpuscular Hemoglobin 30.4 pg (25.0-35.0); Mean Corpuscular Volume 86 fL (80-100); Monocytes # (Auto) 0.8 Thou/mm3 (0.0-0.8); Monocytes % (Auto) 7 % (0-12); Neutrophils # (Auto) 10.4 Thou/mm3 (1.8-7.7); Neutrophils % (Auto) 86 % (37-80); Nucleated Red Blood Cell # 0.00 Thou/mm3 (0.00-0.00); Nucleated Red Blood Cell % 0 /100 WBC (0); Platelet Count 343 Thou/mm3 (140-440); RDW Standard Deviation 39.8 fL (36.4-46.3); Red Blood Count 3.82 Miln/mm3 (4.00-5.20); White Blood Count 12.0 Thou/mm3 (3.6-11.0)
[2025-05-14 11:17] LABS: Alanine Aminotransferase 15 U/L (10-49); Albumin, Serum 3.9 gm/dL (3.5-5.0); Albumin/Globulin Ratio 1.5 (1.2-2.2); Alkaline Phosphatase 101 U/L (46-116); Anion Gap 10 (7-16); Aspartate Amino Transferase 22 U/L (0-34); BUN/Creatinine Ratio 21 Ratio (12-20); Bilirubin,Total 0.4 mg/dL (0.3-1.2); Blood Urea Nitrogen 27 mg/dL (9-23); Calcium 9.5 mg/dL (8.3-10.6); Calcium (Corrected) 9.6 mg/dL (8.5-10.1); Carbon Dioxide 28.9 mMol/L (20.0-31.0); Chloride 92 mMol/L (98-107); Creatinine (Component) 1.3 mg/dL (0.6-1.3); Globulin 2.6 gm/dL (2.3-3.5); Glucose 175 mg/dL (74-106); Osmolality,Calculated 271 (275-295); Potassium 3.9 mMol/L (3.4-5.1); Sodium 131 mMol/L (136-145); Total Protein 6.5 gm/dL (5.7-8.2); eGFR 54 See Note
[2025-05-14 12:06] LABS: CA 125 56.0 U/mL (<30.2); Carcinoembryonic Antigen 48.0 ng/mL (0.0-5.0)
== END 2025-06-05 23:59 | disposition home or self-care (01) ==
LOC: SCTC 14:47
PROVIDERS: Internal Medicine Hematology & Oncology; PCP Nurse Practitioner; Referring Provider Nurse Practitioner; Visit Provider Radiology Therapeutic Radiology
DX: Z51.0 Encounter for antineoplastic radiation therapy (principal); Z51.11 Encounter for antineoplastic chemotherapy; C53.0 Malignant neoplasm of endocervix; C79.31 Secondary malignant neoplasm of brain; C79.51 Secondary malignant neoplasm of bone
CPT/HCPCS: 77014; 77290; 77300; 77301; 77334; 77336; 77338; 77385; 80053; 82378; 85025; 86304; 96361; 96365; 96367; 96375; 96413; A4216; J0461; J1100; J1642; J2405; J3490; J7030; J7040; J9273